=== PATIENT | female | born 1940 | race Caucasian/White ===

== ENCOUNTER 2017-09-08 14:56 | Inpatient (IN) ==
--- NOTE | 2017-09-08 14:58 | Emergency Department Report ---
Asthma HPI - General Stated Complaint: diff breathing Time Seen by Provider: 09/08/17 14:58 Source: patient, EMS Mode of arrival: EMS Limitations: no limitations - History of Present Illness HPI Narrative: Patient is a 77-year-old female presents humor department for evaluation of increasing shortness of air. Patient has a family member became ill approximately 5 days ago approximately 3 days ago patient started having a cough congestion body aches, which are somewhat chronic to her fibromyalgia. Patient now has increasing shortness of air, difficulty catching her breath. Patient denies any chest pain, nausea, vomiting no known fevers. EMS was called on arrival patient satting 84% on room air was placed on 2 L by nasal cannula. Patient has no history of hypoxia requiring oxygen in the past. No history of CHF or COPD to her knowledge MD complaint: shortness of breath Onset (ago): day(s) (3 days) - Related Data Home Medications Medication Instructions Recorded Confirmed Atorvastatin Calcium [Lipitor] 20 mg PO HS #0 04/03/10 09/08/17 Multivitamin,Therapeutic [Oncovite] 1 tab PO DAILY #0 10/24/10 09/08/17 Duloxetine [Cymbalta] 60 mg PO HS #0 cap 03/11/14 09/08/17 Aspirin [Aspir-Low] 1 tab PO DAILY #0 12/15/15 09/08/17 Nitrostat (nitroglycerin) 0.4 mg 0.4 mg SL PRN PRN 10 Days #25 03/22/17 09/08/17 sublingual tablet Cetirizine HCl 10 mg PO DAILY PRN 04/02/17 09/08/17 Cholecalciferol (Vitamin D3) 5,000 cap PO WEEKLY 04/02/17 09/08/17 [Vitamin D3] Isosorbide Mononitrate ER [Imdur] 30 mg PO QAM 04/02/17 09/08/17 Quetiapine [SEROquel] 200 mg PO HS 04/02/17 09/08/17 Lasix (Furosemide) 40 mg tablet 40 mg PO . tab 06/04/17 09/08/17 Namzaric (memantine ER) 7 1 cap PO Q24H 06/04/17 09/08/17 mg-donepezil 10 mg capsule sprinkle, 24 hour Acetaminophen [Acetaminophen Extra 1,000 mg PO Q6HR PRN 11/25/17 11/25/17 Strength] LORazepam [Lorazepam] 1 mg PO HS PRN 09/08/17 09/08/17 Pantoprazole Sodium [Protonix] 40 mg PO ACB 09/08/17 09/08/17 Potassium Chloride [Klor-Con 10] 10 meq PO . 09/08/17 09/08/17 Previous Rx's Medication Instructions Recorded Clopidogrel [Plavix] 75 mg PO DAILY #30 tab 04/03/17 levothyroxine 200 mcg tablet 200 mcg PO DAILY #90 tab 04/10/17 Zyloprim (Allopurinol) 300 mg 300 mg PO DAILY #90 tab 04/24/17 tablet Lyrica (pregabalin) 75 mg capsule 75 mg PO TID #90 cap 07/20/17 Norvasc (amlodipine) 5 mg tablet 5 mg PO BID #180 tab 08/13/17 Toprol XL (metoprolol succinate 50 mg PO DAILY #30 tab 08/15/17 ER) 50 mg tablet, 24 hr Ultram (Tramadol) 50 mg tablet 50 mg PO BID #30 tab 08/15/17 Allergies Allergy/AdvReac Type Severity Reaction Status Date / Time Iodine and Iodide Containing Allergy Unknown ITCHING Verified 06/04/17 13:37 Produc Review of Systems Constitutional: Denies: fever, chills, weakness ENT: Denies: throat pain, dental pain Cardiovascular: Reports: dyspnea on exertion. Denies: chest pain Respiratory: Reports: cough, dyspnea, wheezes Gastrointestinal: Denies: abdominal pain, nausea, vomiting Genitourinary: Denies: urgency, dysuria, frequency Musculoskeletal: Reports: back pain (chronic due to fibromyalgia) Neurological: Denies: headache, weakness, numbness Psychiatric: Denies: anxiety, depression Endocrine: Denies: fatigue, heat or cold intolerance PFSH Patient Stated Medical History Dementia Yes Migraine Yes Cataracts Yes Dental Problems Yes: TEETH REMOVED Dysphagia Yes Glaucoma Yes Macular Degeneration Yes Other HEENT Yes: wears glasses Angina Yes Hypertension Yes Pneumonia Yes Sleep Apnea Yes: INCONCLUSIVE Gastroesophageal Reflux Yes Disease Other GI Yes: HEMRRHOIDS. Hx Incontinence Yes: previous Anemia Yes Osteoarthritis Yes Other Musculoskeletal Yes: FIBROMYALGIA Shingles Yes Depression Yes Clinic Medical History Precordial pain (Acute Medical) Shortness of breath (Acute Medical) Essential (primary) hypertension (Acute Medical) Mixed hyperlipidemia (Acute Medical) Chronic kidney disease (Acute Medical) Community acquired pneumonia (Acute Medical) Hypoxemia requiring supplemental oxygen (Acute Medical) Pulmonary edema (Acute Medical) CKD (chronic kidney disease) (Acute Medical) Dementia (Acute Medical) Depression (Acute Medical) Dyslipidemia (Acute Medical) Family history of CVA (Acute Medical) Fibromyalgia (Acute Medical) HTN (hypertension) (Acute Medical) Hypothyroid (Acute Medical) Lumbar spinal stenosis (Acute Medical) Osteoarthritis (Acute Medical) Osteoporosis (Acute Medical) Restless leg syndrome (Acute Medical) Urinary incontinence (Acute Medical) Surgical History: cholecystectomy - Social History Smoking status: Never smoker Substance use type: does not use Alcohol intake frequency: does not drink Physical Exam - Limitations Limitations: no limitations - General General appearance: alert, obese - Eye Eye exam: Present: PERRL - ENT ENT exam: Present: normal oropharynx, mucous membranes moist, TM's normal bilaterally - Neck Neck exam: Present: full ROM, trachea midline - Chest Chest inspection: Present: symmetric chest wall rise. Absent: tenderness - Respiratory Respiratory exam: Present: normal lung sounds bilaterally (diminished with crackles left lower lobe mild bibasilar expiratory wheezes), wheezes, crackles. Absent: respiratory distress, prolonged expiratory phase - Cardiovascular Cardiovascular exam: Present: regular rate, normal rhythm, normal heart sounds - Abdominal Exam Abdominal exam: Present: soft, normal bowel sounds. Absent: distention, tenderness - Skin Skin exam: Present: warm, dry - Neurological Exam Neurological exam: Present: alert, oriented X3 - Psychiatric Psychiatric exam: Present: normal affect, normal mood Course Vital Signs Temperature 97.7 F 09/08/17 14:56 Pulse Rate 68 09/08/17 14:56 Respiratory Rate 28 H 09/08/17 14:56 Blood Pressure 170/83 H 09/08/17 14:56 Pulse Oximetry 93 09/08/17 14:56 Temperature 97.7 F 09/08/17 14:56 Pulse Rate 64 09/08/17 17:15 Respiratory Rate 31 H 09/08/17 17:15 Blood Pressure 163/75 H 09/08/17 17:15 Pulse Oximetry 95 09/08/17 17:15 Dyspnea - MDM Narrative Medical decision making narrative: Discuss case with Dr. Vincent, patient still hypoxic requiring oxygen with edema and questionable left lower lobe infiltrate, he will admit follow-up - Differential Diagnosis Differential diagnosis: Likely: Acute exacerbation, Status asthmaticus, Acute asthmatic bronchitis, PE, Pneumonia, COPD exacerbation, Pulmonary edema systolic , Pulmonary edema dystolic, Pneumothorax - Medical Records Attestation: I reviewed the patient's medical records. - Lab Data Attestation: I reviewed the patient's lab results. Result diagrams: 09/08/17 15:21 09/08/17 15:21 Lab Results 09/08/17 09/08/17 09/08/17 Range/Units 15:21 15:21 15:21 WBC 7.6 (4.5-11.0) T/MM3 RBC 5.23 H (4.00-5.20) M/MM3 Hgb 15.2 (12-16) GM/DL Hct 48.1 H (36-46) % MCV 92.0 (80-100) UM3 MCH 29.1 (26-34) UUG MCHC 31.6 (31-37) GM/DL RDW Std Deviation 49.5 (36.9-50.2) FL Plt Count 143 (130-400) T/MM3 MPV 10.2 (9.4-12.4) UM3 Immature Gran % (Auto) 1.2 H (0.0-0.5) % Neut % (Auto) 66.9 H (33-66) % Lymph % (Auto) 17.7 L (23-45) % Wise % (Auto) 8.7 (0-9.0) % Eos % (Auto) 5.1 H (0-4) % Baso % (Auto) 0.4 (0-2) % Neut # (Auto) 5.1 (1.8-7.7) T/MM3 Lymph # (Auto) 1.4 (1-4.8) T/MM3 Wise # (Auto) 0.7 (0-0.8) T/MM3 Eos # (Auto) 0.4 (0-0.5) T/MM3 Baso # (Auto) 0.0 (0-0.2) T/MM3 Abs Immat Gran (auto) 0.09 H (0.00-0.03) T/MM3 D-Dimer (0-230) NG/ML Turbidity < 20 (0-20) Sodium 143 (134-144) MEQ/L Potassium 4.8 (3.6-5) MEQ/L Chloride 99 (98-107) MEQ/L Carbon Dioxide 31 H (22-30) MEQ/L Anion Gap 13 (5-15) MEQ/L BUN 28.0 H (7-17) MG/DL Creatinine 1.6 H (0.7-1.2) MG/DL GFR Calculation 31 BUN/Creatinine Ratio 18 (6-26) RATIO Glucose 90 (65-110) MG/DL Calculated Osmolality 281 H (261-280) MOSM/KG Calcium 11.4 H (8.4-10.2) MG/DL Total Bilirubin 0.90 (0.20-1.30) MG/DL Icterus Index < 2 (0-7) AST 29 (14-36) U/L ALT 32 (9-52) U/L Alkaline Phosphatase 108 (38-126) U/L Troponin I < 0.012 (0-0.12) ng/ml B-Natriuretic Peptide 1720 H (0-175) pg/mL Total Protein 7.1 (6.3-8.2) G/DL Albumin 4.3 (3.5-5.0) G/DL Globulin 2.8 (2.4-3.6) G/DL Albumin/Globulin Ratio 1.5 (1.1-2.2) RATIO Plasma Lactate 1.0 (0.6-2.2) MMOL/L Procalcitonin 0.16 NG/ML Specimen Hemolysis 39 H (0-25) 09/08/17 Range/Units 15:23 WBC (4.5-11.0) T/MM3 RBC (4.00-5.20) M/MM3 Hgb (12-16) GM/DL Hct (36-46) % MCV (80-100) UM3 MCH (26-34) UUG MCHC (31-37) GM/DL RDW Std Deviation (36.9-50.2) FL Plt Count (130-400) T/MM3 MPV (9.4-12.4) UM3 Immature Gran % (Auto) (0.0-0.5) % Neut % (Auto) (33-66) % Lymph % (Auto) (23-45) % Wise % (Auto) (0-9.0) % Eos % (Auto) (0-4) % Baso % (Auto) (0-2) % Neut # (Auto) (1.8-7.7) T/MM3 Lymph # (Auto) (1-4.8) T/MM3 Wise # (Auto) (0-0.8) T/MM3 Eos # (Auto) (0-0.5) T/MM3 Baso # (Auto) (0-0.2) T/MM3 Abs Immat Gran (auto) (0.00-0.03) T/MM3 D-Dimer 329 H (0-230) NG/ML Turbidity (0-20) Sodium (134-144) MEQ/L Potassium (3.6-5) MEQ/L Chloride (98-107) MEQ/L Carbon Dioxide (22-30) MEQ/L Anion Gap (5-15) MEQ/L BUN (7-17) MG/DL Creatinine (0.7-1.2) MG/DL GFR Calculation BUN/Creatinine Ratio (6-26) RATIO Glucose (65-110) MG/DL Calculated Osmolality (261-280) MOSM/KG Calcium (8.4-10.2) MG/DL Total Bilirubin (0.20-1.30) MG/DL Icterus Index (0-7) AST (14-36) U/L ALT (9-52) U/L Alkaline Phosphatase (38-126) U/L Troponin I (0-0.12) ng/ml B-Natriuretic Peptide (0-175) pg/mL Total Protein (6.3-8.2) G/DL Albumin (3.5-5.0) G/DL Globulin (2.4-3.6) G/DL Albumin/Globulin Ratio (1.1-2.2) RATIO Plasma Lactate (0.6-2.2) MMOL/L Procalcitonin NG/ML Specimen Hemolysis (0-25) - Radiology Data Attestation: I reviewed the patient's radiology results. Chest x-ray shows edema versus left lower lobe infiltrate Disposition Prescriptions: No Action Multivitamin,Therapeutic [Oncovite] 1 tab PO DAILY #0 Duloxetine [Cymbalta] 60 mg PO HS #0 cap Isosorbide Mononitrate ER [Imdur] 30 mg PO QAM Cholecalciferol (Vitamin D3) [Vitamin D3] 5,000 cap PO WEEKLY LORazepam [Lorazepam] 1 mg PO HS PRN PRN Reason: anxiety Potassium Chloride [Klor-Con 10] 10 meq PO . Acetaminophen [Acetaminophen Extra Strength] 1,000 mg PO Q6HR PRN PRN Reason: Pain Atorvastatin Calcium [Lipitor] 20 mg PO HS #0 Aspirin [Aspir-Low] 1 tab PO DAILY #0 Cetirizine HCl 10 mg PO DAILY PRN PRN Reason: Allergy Symptoms Quetiapine [SEROquel] 200 mg PO HS Clopidogrel [Plavix] 75 mg PO DAILY #30 tab Pantoprazole Sodium [Protonix] 40 mg PO ACB Nitrostat (nitroglycerin) 0.4 mg sublingual tablet 0.4 mg SL PRN PRN 10 Days #25 PRN Reason: Chest Pain levothyroxine 200 mcg tablet 200 mcg PO DAILY #90 tab Zyloprim (Allopurinol) 300 mg tablet 300 mg PO DAILY #90 tab Namzaric (memantine ER) 7 mg-donepezil 10 mg capsule sprinkle, 24 hour 1 cap PO Q24H Lasix (Furosemide) 40 mg tablet 40 mg PO . tab Lyrica (pregabalin) 75 mg capsule 75 mg PO TID #90 cap Ultram (Tramadol) 50 mg tablet 50 mg PO BID #30 tab Toprol XL (metoprolol succinate ER) 50 mg tablet, 24 hr 50 mg PO DAILY #30 tab Norvasc (amlodipine) 5 mg tablet 5 mg PO BID #180 tab Referrals: Jd Mendoza DO [Family Provider] - Time of Disposition: 17:33 - Seen By: physician
--- OUTSIDE RECORDS SUMMARY | 2017-09-08 15:02 | External Medical Summary | Continuity of Care Document ---
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.2 Stricture and stenosis of cervix uteri 12/20/2015 [place] N95.0 Postmenopausal Bleeding 01/07/2016 Barry Keating E66.01 Morbid (severe) obesity due to excess calories 01/07/2016 Barry Keating M79.1 Myalgia 01/07/2016 Barry Keating N95.0 Postmenopausal Bleeding 01/07/2016 Barry Keating R93.5 Abn findings on dx imaging of abd regions, inc retroperiton 01/07/2016 Barry Keating Z68.43 Body mass index (BMI) 50-59.9 , adult 01/07/2016 Denise Hill N95.0 Postmenopausal J Bleeding 01/07/2016 Denise Hill R93.8 Abnormal findings on J diagnostic imaging of body structures 01/07/2016 [place] Novoa 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 01/07/2016 [place] Novoa 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.2 Stricture and stenosis of cervix uteri 01/07/2016 [place] Novoa N95.0 Postmenopausal Bleeding 12/07/2016 [place] Novoa 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 Type Provider Facility Loc./Unit Complaint No. Date/Time [id number] 12/20/2016 12/20/2016 CLS Outpatient [place], [place] 14:30:00 23:59:59 K [id number] 12/07/2016 12/07/2016 CLS Outpatient [place], [place] 11:27:00 23:59:59 K [id number] 01/03/2016 01/03/2016 CLS Outpatient Katie, 08:56:00 23:59:59 So Marquez [id number] 12/30/2015 12/30/2015 CLS Outpatient [place], [place] 09:31:00 23:59:59 K [id number] 12/15/2015 12/15/2015 CLS Outpatient [place], [place] 13:00:00 23:59:59 K [id number] 12/08/2015 12/08/2015 CLS Outpatient Sergio, 14:30:00 23:59:59 Denise Hoang [id number] 11/23/2015 11/23/2015 CLS Outpatient Rishabh, 09:29:00 23:59:59 Barry Hurtado [id number] 11/23/2015 11/23/2015 CLS Outpatient [place], [place] 08:00:00 23:59:59 Aurelia [id number] 11/22/2015 11/22/2015 CLS Outpatient Rishabh, 13:00:00 23:59:59 Barry Hurtado [id number] 11/11/2015 11/11/2015 CLS Outpatient Troy, 09:18:00 23:59:59 Zahraa Landry [id number] 03/02/2008 Document 15:11:00 Registratio n
--- OUTSIDE RECORDS SUMMARY | 2017-09-08 15:02 | External Medical Summary | Continuity of Care Document ---
:1940 Author Organization [facility] Address [address] [place], [place] [id number] Phone Care Team Providers Name Role Phone Dimitri Loo DO Unavailable Unavailable Allergies, Adverse Reactions, Alerts Substance Reaction Severity Status IODINE itching and burning Unknown Active Medications Medication Instructions Dosage Effective Dates Status Comments (start - stop) potassium chloride take 2 capsule by - Active ER 10 mEq oral route every capsule,extended day with food release donepezil 10 mg take 1 tablet by 10 MG - Active tablet oral route every day in the evening lorazepam 1 mg take 1 tablet by 1 MG - Active tablet oral route 3 times every day as needed furosemide 40 mg take 1 tablet by 40 MG - Active tablet oral route every day iron 325 mg (65 mg take 1 tablet by 325 MG - Active iron) tablet ORAL route every day quetiapine 100 mg take 1.5 tab at hs - Active tablet Vitamin D 50,000 take 1 capsule by Not Available - Active unit Cap ORAL route every day Lite Coat Aspirin - Active 325 mg Tab Lipitor 20 mg Tab Take 1 by mouth - Active daily Cymbalta 60 mg Cap Take 1 by mouth - Active daily amlodipine 5 mg take 1 tablet by 5 MG - Active tablet oral route 2 times every day levothyroxine 200 take 1 tablet by 200 MCG - Active mcg tablet oral route every day Lyrica 50 mg capsule take 1 capsule by 50 MG - Active oral route 2 times every day Tylenol Extra take 2 tablet by - Active Strength 500 mg oral route bid tablet omeprazole 20 mg take 1 capsule by - Active capsule,delayed oral route every release day before a meal multivitamin tablet take 1 tablet by Not Available - Active oral route every day with food tramadol 50 mg take 1 tablet by 50 MG - Active tablet oral route every 6 hours as needed Tylenol Extra take 2 tablet by 1000 MG - Active Strength 500 mg oral route every 6 tablet hours as needed Aleve 220 mg tablet take 1 tablet by 220 MG - Active oral route every 12 hours as needed METOPROLOL TARTRATE take 1 tablet by - Active (unknown strength) oral route 2 times every day Problems Condition Effective Dates (start - stop) Clinical Status Submucous leiomyoma of uterus Postmenopausal Bleeding Morbid (severe) obesity due to excess calories Myalgia Postmenopausal Bleeding Abn findings on dx imaging of abd regions, inc retroperiton Body mass index (BMI) 50-59.9 , adult Abnormal findings on diagnostic imaging of body structures Postmenopausal Bleeding Postmenopausal Bleeding Submucous leiomyoma of uterus Stricture and stenosis of cervix uteri Postmenopausal Bleeding Postmenopausal Bleeding Abn findings on dx imaging of abd regions, inc retroperiton Hypertension - Active Procedures Procedure Date Unknown Results Test Name Date and Time Measure Units Reference Range Abnormal Flag Comments Unknown Advance Directives Directive Yes / No Effective Date File Name Unknown Encounters Encounter Practice Location Reason(s) Diagnoses Date Provider Care Team Description For Visit Members April Krishnamurthy Postmenopausal Mar-0 [place] Referring In Womens Bleeding [place]. Provider: Tyrell KUMAR, [address]ri [facility] R, [address], Center [address], [place], [address], [address], , [facility], Center, tel:[phone] [place], [id number] [place] [address]. [id number]. tel: tel: [phone] April Krishnamurthy Submucous leiomyoma Feb-2 [place] In Womens of 3- [place]. Tyrell KUMAR, uterusPostmenopausa [address] [facility] [address], [facility], 120, [id number], [facility], tel: [phone] [place] [address]. tel: [phone] April Krishnamurthy Submucous leiomyoma Mar-0 [facility] Referring In Womens of uterusStricture 2-201 [place]. Provider: Health STACY, and stenosis of 6 700 [place] [address] cervix Medical K, [address], uteriPostmenopausal Center Medical [place], Jennifer Canales, [facility] [address] [place], [address], [address], , [facility] [place], [place], tel: [phone]. , [place]. tel: tel: [phone] April Krishnamurthy Abnormal findings Fe-2 [place] Referring In Womens on diagnostic 4-201 Denise. Provider: Health STACY, imaging of body [address]imitri [address] structuresPostmenop Medical [place]inda R, [address], [facility] [address], [facility] [place], [address], [address], , [facility], Center, tel: [phone] [place], , [place]. [id number]. tel: tel: [phone] April Krishnamurthy Postmenopausal Fe-0 [facility] In Womens BleedingAbn 9-201 [place]. Health [place], findings on dx 6 700 [address] imaging of abd Medical 1522, [facility], [facility] [address], [facility] [place], [address], [id number], [facility] [place], tel: [phone] , [place]. tel: [phone] [facility] ABHISHEK Remy Morbid (severe) Nov-0 [place] Referring In Womens obesity due to 8 Barry. Provider: Health STACY, excess [address] caloriesMyalgiaPost [place], [address], menopausal [place], [address] [place], [place], findings on dx [id number] [address], [id number], [facility] , [place]. [facility], inc tel: Center, tel: retroperitonBody [id number] [place], mass index (BMI) [id number]. 50-59.9 , adult tel:[phone] [facility] Nov-0 [place] Referring In Womens 1-201 [place]. Provider: Health [place], 0 [address] [place] Box Medical [place], [address], Center [address], [place], [address], [address], [id number], [facility], Center, tel:[phone] [place], , . [id number]. tel: [phone] [facility] [place] Referring In Womens 9-200 [place]. Provider: Health [place], 8 [address]imitri [address] Medical [place], [address], Center [address], [place], [address], [address], [id number], [facility], Center, tel:[phone] [place], , . [id number]. tel: tel:[phone] Family History Family Member Diagnosis Age At Onset Brother Stroke No family history of Epilepsy No family history of Cardiovascular Disease Daughter Cancer, breast 55 No family history of Hypertension Mother Cancer, breast 88 No family history of Lung Disease Maternal Grandmother Cancer, colon No family history of Thyroid Disorder No family history of Osteoporosis No family history of Diabetes No family history of Kidney Problems No family history of Ovarian Cancer Immunizations Vaccine Date Status Comments Unknown Payers Payer name Insurance type Covered republican ID Authorization(s) [facility] [id number] [employer] [place] [id number] Social History Type Description Quantity Date Captured Unknown Vital Signs Date / Height Weight BMI Pulse Blood Temperature Respiratory Body Head BMI Time: Rate Pressure Rate Surface Circumference percentile Area Unknown Chief Complaint And Reason For Visit Unknown Chief Complaint And Reason For Visit Reason For Referral Reason For Referral Unknown Plan Of Care Date Type Action Status Goal Lifestyle education regarding diet completed Date Type Problem Goal Intervention Status Start Date Unknown. History Of Present Illness Encounter Date Complaint History Of Present Illness This patient has no known history of present illness Functional Status Encounter Date Functional Assessment Cognitive Assessment Unknown Medications Administered Medication Instructions Dosage Effective Dates (start - stop) Status Comments Drug Treatment Unknown Instructions Date Instruction Additional Information Giving encouragement to exercise Related to Body mass index 50.0- 59.9 Feb-24-2016 Lifestyle education regarding diet Related to Body mass index 50.0-59.9
[2017-09-08] MEDS ORDERED: AZITHROMYCIN IV 500 MG in NS 250ml 250 ML IV ONE (15:23)
[2017-09-08] MEDS ORDERED: ALBUTEROL/IPRATROPIUM 2.5mg-0.5mg/3ml NEB AEROSOL ONE (15:24)
[2017-09-08] MEDS: SALINE FLUSH 10ml SYRINGE IVF PRN ×3 (16:13→17:17)
[2017-09-08] MEDS ORDERED: ONDANSETRON 4 MG/2 ML INJECTION IVP ONE (16:15)
[2017-09-08] MEDS ORDERED: DiphenhydrAMINE 50 MG/ML INJECTION IVP ONE (17:11)
--- NOTE | 2017-09-08 18:23 | History & Physical Report ---
History of Present Illness Date: 09/08/17 Chief complaint: weakness, cough, SOA HPI: Patient is a 77-year-old female who presents to the ER with increasing shortness of breath, cough for 3 days and progressive weakness. Her daughter has had cold symptoms for the last 5 days and patient has developed similar symptoms 3 days ago. She has not run fever. She has had hot and cold chills last night. States her cough is nonproductive. She is usually not on oxygen at home. Review of Systems All systems PM: 10-point ROS was reviewed, no additional remarkable complaints except - Constitutional Constitutional: Present: chills, headache(s) (chronic for patient), lethargy, weakness - Respiratory Respiratory: Present: cough, dyspnea - Integumentary/Breasts Integumentary: Present: rash (developed in ER after she was given Zithromax) - Neurological Neurological: Present: memory loss (dementia), vertigo (chronic), weakness - Psychiatric Psychiatric: Present: anxiety [facility] Medical History Essential (primary) hypertension (Acute Medical) Mixed hyperlipidemia (Acute Medical) Chronic kidney disease (Acute Medical) Pulmonary edema (Acute Medical) CKD (chronic kidney disease) (Acute Medical) Dementia (Acute Medical) Depression (Acute Medical) Dyslipidemia (Acute Medical) Fibromyalgia (Acute Medical) Hypothyroid (Acute Medical) Lumbar spinal stenosis (Acute Medical) Osteoarthritis (Acute Medical) Osteoporosis (Acute Medical) Restless leg syndrome (Acute Medical) Urinary incontinence (Acute Medical) Surgical History: cholecystectomy, thyroid surgery 2, cardiac stent 1 (April 2017-Dr. Botello) Family History: Father- from lymphoma Mother- at age 97 from "old age." Had breast cancer in her 80s Sister-lung cancer Brother-lung cancer with metastases Daughter- at age 56. Had heart valve replacement and implanted defibrillator Son - [place] - Social History Smoking status: Never smoker Substance use type: does not use Alcohol intake frequency: does not drink Housing: house Household members: children (daughter) Current occupational status: retired Current residence: Apartment/Private Home Social history: PCP-Dr. 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 Botello Medications Home Medications Medication Instructions Recorded Confirmed Type Atorvastatin Calcium [Lipitor] 20 mg PO HS #0 04/03/10 09/08/17 History Multivitamin,Therapeutic [Oncovite] 1 tab PO DAILY #0 10/24/10 09/08/17 History Duloxetine [Cymbalta] 60 mg PO HS #0 cap 03/11/14 09/08/17 History Aspirin [Aspir-Low] 1 tab PO DAILY #0 12/15/15 09/08/17 History Nitrostat (nitroglycerin) 0.4 mg 0.4 mg SL PRN PRN 10 Days #25 03/22/17 History sublingual tablet Cetirizine HCl 10 mg PO DAILY PRN 04/02/17 09/08/17 History Cholecalciferol (Vitamin D3) 5,000 cap PO WEEKLY 04/02/17 09/08/17 History [Vitamin D3] Isosorbide Mononitrate ER [Imdur] 30 mg PO QAM 04/02/17 09/08/17 History Quetiapine [SEROquel] 200 mg PO HS 04/02/17 09/08/17 History Lasix (Furosemide) 40 mg tablet 40 mg PO . tab 06/04/17 09/08/17 History Namzaric (memantine ER) 7 1 cap PO Q24H 06/04/17 09/08/17 History mg-donepezil 10 mg capsule sprinkle, 24 hour Acetaminophen [Acetaminophen Extra 1,000 mg PO Q6HR PRN 09/08/17 09/08/17 History Strength] LORazepam [Lorazepam] 1 mg PO HS PRN 09/08/17 09/08/17 History Naproxen [Aleve] 220 mg PO DAILY 09/08/17 09/08/17 History Pantoprazole Sodium [Protonix] 40 mg PO ACB 09/08/17 09/08/17 History Potassium Chloride [Klor-Con 10] 10 meq PO . 09/08/17 09/08/17 History Pregabalin Cap [Lyrica] 75 mg PO BID 09/08/17 09/08/17 History Allergies Allergy/AdvReac Type Severity Reaction Status Date / Time azithromycin Allergy Intermediate Rash Verified 09/08/17 18:15 Iodine and Iodide Containing Allergy Unknown ITCHING Verified 06/04/17 13:37 Produc Exam Vital Signs: Temperature 97.7 F 09/08/17 14:56 Pulse Rate 70 09/08/17 18:00 Respiratory Rate 27 H 09/08/17 18:00 Blood Pressure 146/64 H 09/08/17 18:00 Pulse Oximetry 93 09/08/17 18:00 - Constitutional Present: no acute distress, well nourished, well developed, obese - Routine HEENT Exam Head: Present: normocephalic, atraumatic Eye: Present: EOMI, PERRL ENT: Present: mucous membranes moist. Absent: dentition normal (edentulous) - Routine Neck Exam Present: supple, lymphadenopathy (supraclavicular on the left). Absent: thyromegaly - Routine Respiratory Exam Present: wheezes. Absent: CTA bilaterally Comments: coarse throughout - Routine Cardiovascular Exam Present: RRR, S1, S2. Absent: murmur - Routine Abdominal Exam Present: soft, normoactive bowel sounds, tenderness (diffuse - r/t fibromyalgia) , non distended - Routine Extremities Exam Present: edema (2+ pretibial - no pedal edema. R> L - chronic for pt), normal capillary refill - Routine Skin Exam Present: dry, warm, rash (mild erythema on breasts - no definitive or significant rash present otherwise) - Routine Neurological Exam Present: alert, oriented X3, normal speech. Absent: pronator drift - Routine Psychiatric Exam Present: normal affect, cooperative Results - Labs CBC & Chem 7: 09/08/17 15:21 09/08/17 15:21 Labs: Laboratory Tests 09/08/17 09/08/17 09/08/17 15:21 15:21 15:23 D-Dimer 329 H Troponin I < 0.012 B-Natriuretic Peptide 1720 H Plasma Lactate 1.0 Procalcitonin 0.16 - Imaging and Cardiology Chest x-ray Additional comments: pulmonary edema and questionable LLL infiltrate Assessment and Plan Assessment and Plan: Assessment Acute hypoxic respiratory failure Pulmonary edema Essential (primary) hypertension Mixed hyperlipidemia Chronic kidney disease Pulmonary edema CKD (chronic kidney disease) Dementia Depression Dyslipidemia Fibromyalgia Hypothyroid Lumbar spinal stenosis Osteoarthritis Osteoporosis Restless leg syndrome Urinary incontinence Plan Admit to inpatient status under the hospitalist service. Length of stay is expected to exceed 2 overnights given her hypoxic state and comorbidities. Lovenox and SCDs for VTE prophylaxis Continue all home meds with the exception of Lasix as this will be given IV. Telemetry and oximetry. O2 to keep sats greater than 90%. Rocephin for pulmonary coverage. Respiratory panel ordered. [place] catheter placement with urinalysis on admission. TSH, magnesium, troponin, repeat BMP and CBC in the a.m. Monitor I and O's and check daily weights. Patient requests DO NOT RESUSCITATE CODE STATUS. Care to be returned to Dr. Loo on dismissal Case discussed with Dr. Lechuga. Further orders per Dr. Ankush Lechuga 09/08/17 1900 Have independently interviewed and examined pt. Chart reviewed. Case discussed with ED physician and my PA. Care plan developed with my supervision; agree with above. Increasing cough, congestion, and SOA worsening over the past 3 days. Not able to mobilize sputum. Upper ab wall pain from cough. Nasal congestion. Appetite with significant decline since she has been feeling sick. More tired and weak. No palpitations. Some heaviness to chest. Bowel slightly loose. Making normal amount of urine. Some increase edema. More diffusely achy in joints and bones. Lungs: decreased, congested. Frequent cough. CV: regular Ab: soft obese nd BS decreased MSE: awake alert appropriate CXR: pulmonary edema, possible infiltrate (my interpretation) Plan: Inpatient admission secondary to acute respiratory failure with hypoxia- anticipate greater than 2 midnights of care needed. Start Lasix 40mg IV q 8 hours to motivate fluid - will place [place] cath secondary to need for frequent use of IV diuretics. Serial enzymes to exclude AMI. Check ECHO to assess EF ( normal on cath this summer). Rocephin for pulmonary coverage - was given IV azithromycin in ED, but started itching (hold on azithromycin for now). Check respiratory panel for viruses that could contribute to her acute symptoms. Hold on IVF as concern for pulm edema-plus BP and HR maintained. Acapella to help loosen secretions. Will initial neb treatments of DuoNeb and budesonide. Supplemental O2, weaning as able. Acapella to decrease secretions. Low dose Phenergan and Codeine as needed for severe cough. Nasal saline due to nasal congestion. Continue home meds. SCD and Lovenox for DVT prevention. Monitor lab. Will check Vit B12 secondary to dementia (and when checked previously, while normal, Vit B12 level was trending down). Discussed code status with patient - feels she would not want resuscitation. Care to return to Dr Loo at time of discharge from [facility]. DVT Prophylaxis: SCD's, Lovenox Resuscitation Status: Do Not Resuscitate Hospital Course Summary Disclaimer: The visit summary below is not to be considered part of the above Progress Note. Hospital Course: Assessment Acute hypoxic respiratory failure Pulmonary edema Essential (primary) hypertension Mixed hyperlipidemia Chronic kidney disease Pulmonary edema CKD (chronic kidney disease) Dementia Depression Dyslipidemia Fibromyalgia Hypothyroid Lumbar spinal stenosis Osteoarthritis Osteoporosis Restless leg syndrome Urinary incontinence 09/08/17 hospital admission Admit to inpatient status under the hospitalist service. Length of stay is expected to exceed 2 overnights given her hypoxic state and comorbidities. Lovenox and SCDs for VTE prophylaxis Continue all home meds with the exception of Lasix as this will be given IV. Telemetry and oximetry. O2 to keep sats greater than 90%. Rocephin for pulmonary coverage. Respiratory panel ordered. [place] catheter placement with urinalysis on admission. TSH, magnesium, troponin, repeat BMP and CBC in the a.m. Monitor I and O's and check daily weights. Patient requests DO NOT RESUSCITATE CODE STATUS. Care to be returned to Dr. Loo on dismissal Case discussed with Dr. Lechuga. Further orders per Dr. Lechuga
[2017-09-08 18:32] VITALS: BMI 45.8
[2017-09-08] MEDS ORDERED: LORazepam 1 MG TABLET PO PRN (19:25)
[2017-09-08] MEDS ORDERED: NITROGLYCERIN 0.4 MG SUBLINGUAL TABLET SL PRN (19:25)
[2017-09-08] MEDS ORDERED: ACETAMINOPHEN 500 MG TABLET PO PRN (19:25)
[2017-09-08] MEDS ORDERED: [UNRECOGNIZED DRUG - OTHER] PO SCH (19:25)
[2017-09-08] MEDS ORDERED: CETIRIZINE 10 MG TABLET PO PRN (19:25)
[2017-09-08] MEDS ORDERED: MEMANTINE HCL PO SCH (19:25)
[2017-09-08] MEDS ORDERED: DONEPEZIL HCL PO SCH (19:25)
[2017-09-08] MEDS ORDERED: PROMETHAZINE/CODEINE ORAL LIQUID 5ml PO PRN (19:25)
[2017-09-08] MEDS: CEFTRIAXONE 1 G in NS 100 ML IV SCH (20:01)
[2017-09-08] MEDS: ENOXAPARIN 40 MG/0.4 ML INJECTION SQ SCH (20:43)
[2017-09-08] MEDS: ATORVASTATIN 20 MG TABLET PO SCH (20:43)
[2017-09-08] MEDS: AMLODIPINE 5 MG TABLET PO SCH (20:43)
[2017-09-08] MEDS: DULOXETINE 30 MG CAPSULE PO SCH (20:43)
[2017-09-08] MEDS: PREGABALIN 75 MG CAPSULE PO SCH (20:43)
[2017-09-08] MEDS: SALINE 0.65% NASAL SPRAY 44 ML BOTTLE EA NOSTRIL SCH (20:43)
[2017-09-08] MEDS: QUETIAPINE 200 MG TABLET PO SCH (20:44)
[2017-09-08] MEDS: TRAMADOL 50 MG TABLET PO SCH (20:44)
[2017-09-08] MEDS: FUROSEMIDE 40 MG/4 ML INJECTION IVP SCH (20:44)
[2017-09-09] MEDS: FUROSEMIDE 40 MG/4 ML INJECTION IVP SCH ×3 (04:43→20:30)
[2017-09-09] MEDS: PANTOPRAZOLE 40 MG TABLET PO SCH (06:55)
[2017-09-09] MEDS: LEVOTHYROXINE 200 MCG TABLET PO SCH (08:20)
[2017-09-09] MEDS: BUDESONIDE INH.SOLN 0.5mg/2ml NEB AEROSOL SCH ×2 (08:44→19:00)
[2017-09-09] MEDS: ALBUTEROL/IPRATROPIUM 2.5mg-0.5mg/3ml NEB AEROSOL SCH ×4 (08:44→19:00)
--- NOTE | 2017-09-09 08:49 | XRay Report ---
INDICATION: cough, shortness of air, wheezing PROCEDURE: CHEST 2-VIEWS UPRIGHT (PA & LAT) Encounter: Initial COMPARISON: March 22, 2017 FINDINGS: Hazy airspace disease in the left lower lobe with a small left effusion. Right lung is grossly clear. No pneumothorax. Heart size and mediastinal contours are grossly stable allowing for differences in rotation. Pulmonary vascularity is minimally prominent. Impression: Left lower lobe pneumonia or aspiration. .
[2017-09-09] MEDS: ENOXAPARIN 40 MG/0.4 ML INJECTION SQ SCH (09:38)
[2017-09-09] MEDS: MULTI-VITAMIN + MINERAL TABLET PO SCH (09:39)
[2017-09-09] MEDS: TRAMADOL 50 MG TABLET PO SCH ×2 (09:39→20:30)
[2017-09-09] MEDS: AMLODIPINE 5 MG TABLET PO SCH ×2 (09:39→20:31)
[2017-09-09] MEDS: CLOPIDOGREL 75 MG TABLET PO SCH (09:39)
[2017-09-09] MEDS: ISOSORBIDE MONONITRATE ER 30 MG TABLET PO SCH (09:39)
[2017-09-09] MEDS: PREGABALIN 75 MG CAPSULE PO SCH ×2 (09:39→20:31)
[2017-09-09] MEDS: SALINE 0.65% NASAL SPRAY 44 ML BOTTLE EA NOSTRIL SCH ×4 (09:39→20:32)
[2017-09-09] MEDS: ALLOPURINOL 300 MG TABLET PO SCH (09:39)
[2017-09-09] MEDS: ASPIRIN *EC* 81 MG TABLET PO SCH (09:39)
[2017-09-09] MEDS: CEFTRIAXONE 1 G in NS 100 ML IV SCH (09:40)
[2017-09-09] MEDS ORDERED: BISACODYL 10 MG SUPPOSITORY RECTALLY PRN (11:44)
[2017-09-09] MEDS ORDERED: ONDANSETRON 4 MG/2 ML INJECTION IVP PRN (11:45)
--- NOTE | 2017-09-09 13:22 | Progress Note ---
- Date 09/09/17 Subjective: F/U: Acute hypoxic respiratory failure, pneumonia Breathing with some improvement this afternoon (very short and congested this am ). Notes cough, but not able to mobilize sputum. Breathing treatments are helpful. Not having pain with breathing. No chest pressure or fullness. Appetite decreased, but able to eat without nausea or ab pain. Not reporting flatus. Tolerating Chino cath and SCD. Strength still very decreased. No f/c. Objective Vital signs: Temperature 97.3 F 09/09/17 08:00 Pulse Rate 68 09/09/17 08:00 Respiratory Rate 20 09/09/17 11:44 Blood Pressure 170/86 H 09/09/17 08:00 Pulse Oximetry 93 09/09/17 08:44 Height/Weight/BMI: Height 1.63 m Weight 122 kg Body Mass Index 45.8 - Constitutional Present: well nourished, well developed, morbidly obese, cooperative. Absent: combative, agitated - Routine HEENT Exam Head: Present: normocephalic, atraumatic Eye: Present: EOMI, PERRL ENT: Present: mucous membranes moist - Routine Respiratory Exam Present: decreased breath sounds, distant breath sounds, diminished air movement. Absent: rales, rhonchi, wheezes, crackles - Routine Cardiovascular Exam Present: RRR, no murmur - Routine Abdominal Exam Present: soft, normoactive bowel sounds, non tender, distended. Absent: guarding - Routine Exam Comments: [place] present - Routine Extremities Exam Present: no edema, pulses intact. Absent: cyanosis, clubbing Comments: SCD in place - Routine Musculoskeletal Exam Musculoskeletal: Present: no clubbing or cyanosis - Routine Skin Exam Present: dry, warm - Routine Neurological Exam Present: alert, oriented X3, CN II-XII intact, moving all extremities, vision grossly intact, hearing grossly intact, normal speech. Absent: motor deficit, altered mental status - Routine Psychiatric Exam Present: normal affect, normal thought process, cooperative. Absent: anxious, agitated Results - Labs CBC & Chem 7: 09/09/17 04:22 09/09/17 04:22 Assessment and Plan Assessment and Plan: Assessment Acute hypoxic respiratory failure Pneumonia Pulmonary edema Essential (primary) hypertension Mixed hyperlipidemia CKD (chronic kidney disease) Stage III Dementia Depression Fibromyalgia Hypothyroid Lumbar spinal stenosis Osteoarthritis Osteoporosis Restless leg syndrome Urinary incontinence Morbid Obesity with BMI 46.2 Plan Continue with Rocephin for pulmonary coverage of infiltrate - azithromycin given in ED, but patient developed rash. DuoNeb QID, budesonide BID, and Acapella QID to help loosen secretions. Continue with supplemental O2. Viral respiratory panel negative. Decrease Lasix to 40mg IV BID to help decrease pulm edema. Potassium with decrease to 3.8 - will give 20mEq KCl. Check ECHO in am. 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 Serial troponin negative. Start Miralax daily to help with bowel motivation. TSH with slight increase - likely euthyroid sick - continue with home dose. Could repeat in outpatient setting in 3 months. Vitamin B12 pending - normal when checked last, but trending down. Consult PT/OT in am to help increase strength and functional status. Recheck CBC in am due to pneumonia. Recheck BMP/Mg in am due to diuretic use and CKD. Time spent with patient care 25 minutes. DVT Prophylaxis: SCD's, Lovenox Resuscitation Status: Do Not Resuscitate - Time spent with patient Time with patient PN: 25 minutes Hospital Course Summary Disclaimer: The visit summary below is not to be considered part of the above Progress Note. Hospital Course: Assessment Acute hypoxic respiratory failure Pneumonia Pulmonary edema Essential (primary) hypertension Mixed hyperlipidemia CKD (chronic kidney disease) Stage III Dementia Depression Fibromyalgia Hypothyroid Lumbar spinal stenosis Osteoarthritis Osteoporosis Restless leg syndrome Urinary incontinence Morbid Obesity with BMI 46.2 09/08/17 Hospital Admission Admit to inpatient status under the hospitalist service. Length of stay is expected to exceed 2 overnights given her hypoxic state and comorbidities. Lovenox and SCDs for VTE prophylaxis. Continue all home meds with the exception of Lasix as this will be given IV at 40mg q 8 hours. Telemetry and oximetry. O2 to keep sats greater than 90%. Rocephin for pulmonary coverage. Respiratory panel ordered. Ch[place] catheter placement with urinalysis on admission. TSH, magnesium, troponin, repeat BMP and CBC in the a.m. Monitor I and O's and check daily weights. Patient requests DO NOT RESUSCITATE CODE STATUS. Care to be returned to Dr. Loo on dismissal. 09/09/17 Continue with Rocephin for pulmonary coverage of infiltrate - azithromycin given in ED, but patient developed rash. DuoNeb QID, budesonide BID, and Acapella QID to help loosen secretions. Continue with supplemental O2. Viral respiratory panel negative. Decrease Lasix to 40mg IV BID to help decrease pulm edema. Potassium with decrease to 3.8 - will give 20mEq KCl. Check ECHO in am. 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 Serial troponin negative. Start Miralax daily to help with bowel motivation. TSH with slight increase - likely euthyroid sick - continue with home dose. Could repeat in outpatient setting in 3 months. Vitamin B12 pending - normal when checked last, but trending down. Consult PT/OT in am to help increase strength and functional status. Recheck CBC in am due to pneumonia. Recheck BMP/Mg in am due to diuretic use and CKD.
[2017-09-09] MEDS: POLYETHYL GLYCOL 3350 17gm PACKET PO SCH (15:59)
[2017-09-09] MEDS: TRAMADOL 50 MG TABLET PO PRN (18:09)
[2017-09-09] MEDS ORDERED: ALBUTEROL/IPRATROPIUM 2.5mg-0.5mg/3ml NEB AEROSOL SCH (19:22)
[2017-09-09] MEDS ORDERED: BUDESONIDE INH.SOLN 0.5mg/2ml NEB AEROSOL SCH (19:22)
[2017-09-09] MEDS: DONEPEZIL 10 MG TABLET PO SCH (20:31)
[2017-09-09] MEDS: ATORVASTATIN 20 MG TABLET PO SCH (20:31)
[2017-09-09] MEDS: DULOXETINE 30 MG CAPSULE PO SCH (20:31)
[2017-09-09] MEDS: MEMANTINE 5 MG TABLET PO SCH (20:31)
[2017-09-09] MEDS: QUETIAPINE 200 MG TABLET PO SCH (20:32)
[2017-09-10] MEDS: TRAMADOL 50 MG TABLET PO PRN (05:17)
[2017-09-10] MEDS: PANTOPRAZOLE 40 MG TABLET PO SCH (06:01)
[2017-09-10] MEDS: LEVOTHYROXINE 200 MCG TABLET PO SCH (06:01)
[2017-09-10] MEDS: BUDESONIDE INH.SOLN 0.5mg/2ml NEB AEROSOL SCH ×2 (07:07→19:21)
[2017-09-10] MEDS: ALBUTEROL/IPRATROPIUM 2.5mg-0.5mg/3ml NEB AEROSOL SCH ×4 (07:07→19:21)
[2017-09-10] MEDS: ASPIRIN *EC* 81 MG TABLET PO SCH (10:39)
[2017-09-10] MEDS: MEMANTINE 5 MG TABLET PO SCH ×2 (10:39→21:07)
[2017-09-10] MEDS: ISOSORBIDE MONONITRATE ER 30 MG TABLET PO SCH (10:40)
[2017-09-10] MEDS: ALLOPURINOL 300 MG TABLET PO SCH (10:40)
[2017-09-10] MEDS: CLOPIDOGREL 75 MG TABLET PO SCH (10:40)
[2017-09-10] MEDS: PREGABALIN 75 MG CAPSULE PO SCH ×2 (10:41→21:06)
[2017-09-10] MEDS: FUROSEMIDE 40 MG/4 ML INJECTION IVP SCH (10:41)
[2017-09-10] MEDS: POLYETHYL GLYCOL 3350 17gm PACKET PO SCH (10:41)
[2017-09-10] MEDS: AMLODIPINE 5 MG TABLET PO SCH ×2 (10:41→21:07)
[2017-09-10] MEDS: ENOXAPARIN 40 MG/0.4 ML INJECTION SQ SCH (10:41)
[2017-09-10] MEDS: MULTI-VITAMIN + MINERAL TABLET PO SCH (10:41)
[2017-09-10] MEDS: TRAMADOL 50 MG TABLET PO SCH ×2 (10:42→21:06)
[2017-09-10] MEDS: SALINE 0.65% NASAL SPRAY 44 ML BOTTLE EA NOSTRIL SCH ×4 (10:42→21:07)
[2017-09-10] MEDS: CEFTRIAXONE 1 G in NS 100 ML IV SCH (10:43)
--- NOTE | 2017-09-10 11:14 | Progress Note ---
<Anabell Muñoz L - Last Filed: 09/10/17 11:11> - Date 09/10/17 Subjective: F/U: Acute hypoxic respiratory failure, pneumonia Patient is seen in her room sitting in her chair. She feels like she has less shortness of breath. She was able to cough up some mucus today. She has been using her Acapella. She is sleeping well. States she has not had bowel movement since prior to admission 2 days ago. No nausea or vomiting. Hasn't had much of an appetite. Objective Vital signs: Temperature 97.0 F 09/10/17 07:45 Pulse Rate 66 09/10/17 07:45 Respiratory Rate 16 09/10/17 07:45 Blood Pressure 156/71 H 09/10/17 07:45 Pulse Oximetry 91 09/10/17 08:00 Height/Weight/BMI: Height 1.63 m Weight 121 kg Body Mass Index 45.8 - Constitutional Present: well nourished, well developed, obese - Routine Respiratory Exam Present: decreased breath sounds (sounds are decreased to the lower half of the left lung field. Right lung is clear.). Absent: wheezes - Routine Cardiovascular Exam Present: RRR, S1, S2. Absent: murmur - Routine Abdominal Exam Present: soft, normoactive bowel sounds, tenderness (diffuse-secondary to fibromyalgia), non distended - Routine Extremities Exam Present: no edema (currently has SCDs on.), normal capillary refill - Routine Skin Exam Present: dry, warm - Routine Neurological Exam Present: alert, oriented X3. Absent: altered mental status - Routine Lymphatic Exam Lymphatic: Absent: adenopathy - Routine Psychiatric Exam Present: normal affect, normal thought process, cooperative Results - Labs CBC & Chem 7: 09/10/17 05:00 09/10/17 05:00 Assessment and Plan Assessment and Plan: Assessment Acute hypoxic respiratory failure Pneumonia Pulmonary edema Essential (primary) hypertension Mixed hyperlipidemia CKD (chronic kidney disease) Stage III Dementia Depression Fibromyalgia Hypothyroid Lumbar spinal stenosis Osteoarthritis Osteoporosis Restless leg syndrome Urinary incontinence Morbid Obesity with BMI 46.2 Plan Continue with Rocephin for pulmonary coverage of infiltrate - azithromycin given in ED, but patient developed rash. Repeat CXR today. Significantly decreased BS's to lower half of L lung. DuoNeb QID, budesonide BID, and Acapella QID to help loosen secretions. Continue with supplemental O2. Viral respiratory panel negative. Decrease Lasix to 40mg IV qd from BID (home dose is 40mg qd p.o.) given increasing creatinine. Resume home potassium of 10mEq qd. ECHO pending. 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 Continue Miralax daily to help with bowel motivation. Can give MOM and prune juice if needed. TSH with slight increase - likely euthyroid sick - continue with home dose. Vitamin B12 resulted- normal. PT/OT to eval pt today to help increase strength and functional status. Hospital Course Summary Disclaimer: The visit summary below is not to be considered part of the above Progress Note. Hospital Course: Assessment Acute hypoxic respiratory failure Pneumonia Pulmonary edema Essential (primary) hypertension Mixed hyperlipidemia CKD (chronic kidney disease) Stage III Dementia Depression Fibromyalgia Hypothyroid Lumbar spinal stenosis Osteoarthritis Osteoporosis Restless leg syndrome Urinary incontinence Morbid Obesity with BMI 46.2 09/08/17 Hospital Admission Admit to inpatient status under the hospitalist service. Length of stay is expected to exceed 2 overnights given her hypoxic state and comorbidities. Lovenox and SCDs for VTE prophylaxis. Continue all home meds with the exception of Lasix as this will be given IV at 40mg q 8 hours. Telemetry and oximetry. O2 to keep sats greater than 90%. Rocephin for pulmonary coverage. Respiratory panel ordered. Bal[place] catheter placement with urinalysis on admission. TSH, magnesium, troponin, repeat BMP and CBC in the a.m. Monitor I and O's and check daily weights. Patient requests DO NOT RESUSCITATE CODE STATUS. Care to be returned to Dr. Loo on dismissal. 09/09/17 Continue with Rocephin for pulmonary coverage of infiltrate - azithromycin given in ED, but patient developed rash. DuoNeb QID, budesonide BID, and Acapella QID to help loosen secretions. Continue with supplemental O2. Viral respiratory panel negative. Decrease Lasix to 40mg IV BID to help decrease pulm edema. Potassium with decrease to 3.8 - will give 20mEq KCl. Check ECHO in am. 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 Serial troponin negative. Start Miralax daily to help with bowel motivation. TSH with slight increase - likely euthyroid sick - continue with home dose. Could repeat in outpatient setting in 3 months. Vitamin B12 pending - normal when checked last, but trending down. Consult PT/OT in am to help increase strength and functional status. Recheck CBC in am due to pneumonia. Recheck BMP/Mg in am due to diuretic use and CKD. 09/10/17 Continue with Rocephin for pulmonary coverage of infiltrate - azithromycin given in ED, but patient developed rash. Repeat CXR today. Significantly decreased BS's to lower half of L lung. Decrease Lasix to 40mg IV qd from BID (home dose is 40mg qd p.o.) given increasing creatinine. Resume home potassium of 10mEq qd. ECHO pending. Continue Miralax daily to help with bowel motivation. Can give MOM and prune juice if needed. Vitamin B12 resulted- normal. PT/OT to eval pt today to help increase strength and functional status. <DanyEddieTammy L - Last Filed: 09/10/17 18:11> - Date 09/10/17 Objective Vital signs: Temperature 97.3 F 09/10/17 15:11 Pulse Rate 69 09/10/17 15:11 Respiratory Rate 20 09/10/17 15:11 Blood Pressure 157/73 H 09/10/17 15:11 Pulse Oximetry 92 09/10/17 15:11 Height/Weight/BMI: Height 1.63 m Weight 121 kg Body Mass Index 45.8 Results - Labs CBC & Chem 7: 09/10/17 05:00 09/10/17 05:00 Assessment and Plan Assessment and Plan: 09/10/2017-I reviewed this chart, the patient history, and the OVERHEAD LINE WORKER's/PA's documented findings as above. We discussed and formulated the assessment and plan as above with the additions below.-Dr Saenz The patient was seen this evening. She states her breathing and cough are better compared to when she was admitted. Her weakness is better as well but she is still not back to normal. PT and OT did evaluate the patient and both recommended alf. She states her appetite is improving. She states she has had vaginal bleeding monthly for several months and sees a ski guide. On exam she is alert and oriented and in no acute distress. She is on 2 L of oxygen. Cardiovascular reveals a regular rate and rhythm. Chest reveals some expiratory wheezes mostly in the right lower lung field. There is decreased air movement in the left lower lung field. Abdomen is soft and nontender. Extremities reveal no edema in the lower legs. Patient does have edema of the left hip and pannus area. She has some skin breakdown over the left hip that has been there for a couple of months. This area is erythematous with pitting edema. She does not have similar erythema or edema on the right hip or pannus. Chest x-ray was viewed by myself and I agree with the radiology interpretation of a left pleural effusion and possible left basilar infiltrate versus atelectasis. Lab is otherwise fairly stable. Calcium remains mildly elevated at 10.4. Chronic kidney disease is stable. Impression and plan Re: Pneumonia, continue Rocephin currently day 3. Regarding pleural effusion and pulmonary edema, continue Lasix. Agree with decreased dosage. Regarding hypercalcemia, continue to monitor. Regarding edema, erythema, skin breakdown of the right hip-we'll consult Dr. Martinez Regarding generalized weakness-PT and OT recommend alf-we'll consult case management for help with arranging alf at discharge Echo is pending. Hospital Course Summary Disclaimer: The visit summary below is not to be considered part of the above Progress Note. Addendum entered and electronically signed by STACY Huizar 09/10/17 14:15 : Nurse reports pt's balbuena cath fell out. Will leave out at this time. Pt is able to transfer to bedside commode or bathroom.
--- NOTE | 2017-09-10 13:41 | XRay Report ---
Indication: CAP, hypoxia Procedure: XR chest 2V: Encounter: Subsequent Comparison: 09/08/2017, 03/22/2017 Technique: AP and lateral radiographs of the chest were obtained. Findings: Evaluation limited by suboptimal positioning with rightward patient rotation and poor inspiratory effort. Lungs and airways: Low lung volumes. Left basilar airspace opacities. Normal pulmonary vasculature. Pleura: Small to moderate left pleural effusion. No pneumothorax. Heart and mediastinum: The cardiomediastinal silhouette and great vessels appear unchanged. Osseous structures and soft tissues: No acute osseous abnormality is seen. Degenerative changes of the shoulders and thoracic spine. Impression: Persistent small to moderate left pleural effusion and left basilar airspace opacities which could represent pneumonia with secondary pleural effusion versus pleural effusion and resulting relaxation atelectasis. .
--- NOTE | 2017-09-10 18:48 | General Surgery Consult Note ---
Consult date: 09/11/17 Attending Physician: Tammy Saenz MD Reason for consult: wound care [facility] Patient Stated Medical History Dementia Yes Migraine Yes Cataracts Yes Dental Problems Yes: TEETH REMOVED Dysphagia Yes Glaucoma Yes Macular Degeneration Yes Other HEENT Yes: wears glasses Angina Yes Hypertension Yes Pneumonia Yes Sleep Apnea Yes: INCONCLUSIVE Gastroesophageal Reflux Yes Disease Other GI Yes: HEMRRHOIDS. Hx Incontinence Yes: previous Anemia Yes Osteoarthritis Yes Other Musculoskeletal Yes: FIBROMYALGIA Shingles Yes Depression Yes Clinic Medical History Precordial pain (Acute Medical) Shortness of breath (Acute Medical) Essential (primary) hypertension (Acute Medical) Mixed hyperlipidemia (Acute Medical) Chronic kidney disease (Acute Medical) Community acquired pneumonia (Acute Medical) Hypoxemia requiring supplemental oxygen (Acute Medical) Pulmonary edema (Acute Medical) CKD (chronic kidney disease) (Acute Medical) Dementia (Acute Medical) Depression (Acute Medical) Dyslipidemia (Acute Medical) Family history of CVA (Acute Medical) Fibromyalgia (Acute Medical) HTN (hypertension) (Acute Medical) Hypothyroid (Acute Medical) Lumbar spinal stenosis (Acute Medical) Osteoarthritis (Acute Medical) Osteoporosis (Acute Medical) Restless leg syndrome (Acute Medical) Urinary incontinence (Acute Medical) Surgical History: cholecystectomy, thyroid surgery 2, cardiac stent 1 (April 2017-Dr. Botello) Family History: Father- from lymphoma Mother- at age 97 from "old age." Had breast cancer in her 80s Sister-lung cancer Brother-lung cancer with metastases Daughter- at age 56. Had heart valve replacement and implanted defibrillator Son - [place] - Social History Smoking status: Never smoker Current residence: Apartment/Private Home Medications Home Medications Medication Instructions Recorded Confirmed Type Atorvastatin Calcium [Lipitor] 20 mg PO HS #0 04/03/10 09/08/17 History Multivitamin,Therapeutic [Oncovite] 1 tab PO DAILY #0 10/24/10 09/08/17 History Duloxetine [Cymbalta] 60 mg PO HS #0 cap 03/11/14 09/08/17 History Aspirin [Aspir-Low] 1 tab PO DAILY #0 12/15/15 09/08/17 History Nitrostat (nitroglycerin) 0.4 mg 0.4 mg SL PRN PRN 10 Days #25 03/22/17 History sublingual tablet Cetirizine HCl 10 mg PO DAILY PRN 04/02/17 09/08/17 History Cholecalciferol (Vitamin D3) 5,000 cap PO WEEKLY 04/02/17 09/08/17 History [Vitamin D3] Isosorbide Mononitrate ER [Imdur] 30 mg PO QAM 04/02/17 09/08/17 History Quetiapine [SEROquel] 200 mg PO HS 04/02/17 09/08/17 History Lasix (Furosemide) 40 mg tablet 40 mg PO . tab 06/04/17 09/08/17 History Namzaric (memantine ER) 7 1 cap PO Q24H 06/04/17 09/08/17 History mg-donepezil 10 mg capsule sprinkle, 24 hour Acetaminophen [Acetaminophen Extra 1,000 mg PO Q6HR PRN 09/08/17 09/08/17 History Strength] LORazepam [Lorazepam] 1 mg PO HS PRN 09/08/17 09/08/17 History Naproxen [Aleve] 220 mg PO DAILY 09/08/17 09/08/17 History Pantoprazole Sodium [Protonix] 40 mg PO ACB 09/08/17 09/08/17 History Potassium Chloride [Klor-Con 10] 10 meq PO . 09/08/17 09/08/17 History Pregabalin Cap [Lyrica] 75 mg PO BID 09/08/17 09/08/17 History Allergies Allergy/AdvReac Type Severity Reaction Status Date / Time azithromycin Allergy Intermediate Rash Verified 09/08/17 18:15 Iodine and Iodide Containing Allergy Unknown ITCHING Verified 06/04/17 13:37 Produc Review of Systems 10-point ROS: negative except for HPI and the following: - General General: Present: chills (prior to admission) - Respiratory Respiratory: Present: difficulty breathing, cough - Gastrointestinal Gastrointestinal: Present: constipation, other (GERD) - Genitourinary Genitourinary: Present: other (incontinence) - Musculoskeletal Musculoskeletal: Present: joint pain (uses a walker for short distances in the house and to occasionally get to the car so her daughter can take her places) - Neurological Neurological: Present: muscle weakness - Psychiatric Psychiatric: Present: anxiety, depression - Endocrine Endocrine: Present: thyroid problems - Hematologic/Lymphatic Hematologic/Lymphatic: Present: easy bruising, use of blood thinners - Vital Signs Last Vital Signs Temp 97.3 F 09/10/17 15:11 Pulse 69 09/10/17 15:11 Resp 20 09/10/17 15:11 BP 157/73 H 09/10/17 15:11 Pulse Ox 92 09/10/17 15:11 - Laboratory Result Diagrams: 09/11/17 04:03 09/11/17 04:03 General Surgery Results - Results Labs: 09/10/17 05:00 09/10/17 05:00 Hospital Course Summary Disclaimer: The visit summary below is not to be considered part of the above Progress Note. Hospital Course: Assessment Acute hypoxic respiratory failure Pneumonia Pulmonary edema Essential (primary) hypertension Mixed hyperlipidemia CKD (chronic kidney disease) Stage III Dementia Depression Fibromyalgia Hypothyroid Lumbar spinal stenosis Osteoarthritis Osteoporosis Restless leg syndrome Urinary incontinence Morbid Obesity with BMI 46.2 09/08/17 Hospital Admission Admit to inpatient status under the hospitalist service. Length of stay is expected to exceed 2 overnights given her hypoxic state and comorbidities. Lovenox and SCDs for VTE prophylaxis. Continue all home meds with the exception of Lasix as this will be given IV at 40mg q 8 hours. Telemetry and oximetry. O2 to keep sats greater than 90%. Rocephin for pulmonary coverage. Respiratory panel ordered. [place] catheter placement with urinalysis on admission. TSH, magnesium, troponin, repeat BMP and CBC in the a.m. Monitor I and O's and check daily weights. Patient requests DO NOT RESUSCITATE CODE STATUS. Care to be returned to Dr. Loo on dismissal. 09/09/17 Continue with Rocephin for pulmonary coverage of infiltrate - azithromycin given in ED, but patient developed rash. DuoNeb QID, budesonide BID, and Acapella QID to help loosen secretions. Continue with supplemental O2. Viral respiratory panel negative. Decrease Lasix to 40mg IV BID to help decrease pulm edema. Potassium with decrease to 3.8 - will give 20mEq KCl. Check ECHO in am. 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 Serial troponin negative. Start Miralax daily to help with bowel motivation. TSH with slight increase - likely euthyroid sick - continue with home dose. Could repeat in outpatient setting in 3 months. Vitamin B12 pending - normal when checked last, but trending down. Consult PT/OT in am to help increase strength and functional status. Recheck CBC in am due to pneumonia. Recheck BMP/Mg in am due to diuretic use and CKD. 09/10/17 Continue with Rocephin for pulmonary coverage of infiltrate - azithromycin given in ED, but patient developed rash. Repeat CXR today. Significantly decreased BS's to lower half of L lung. Decrease Lasix to 40mg IV qd from BID (home dose is 40mg qd p.o.) given increasing creatinine. Resume home potassium of 10mEq qd. ECHO pending. Continue Miralax daily to help with bowel motivation. Can give MOM and prune juice if needed. Vitamin B12 resulted- normal. PT/OT to eval pt today to help increase strength and functional status.
[2017-09-10] MEDS: SALINE FLUSH 10ml SYRINGE IVF PRN (21:05)
[2017-09-10] MEDS: ATORVASTATIN 20 MG TABLET PO SCH (21:06)
[2017-09-10] MEDS: DULOXETINE 30 MG CAPSULE PO SCH (21:06)
[2017-09-10] MEDS: DONEPEZIL 10 MG TABLET PO SCH (21:07)
[2017-09-10] MEDS: QUETIAPINE 200 MG TABLET PO SCH (21:07)
--- NOTE | 2017-09-10 22:32 | Echocardiogram ---
DATE OF PROCEDURE September 10, 2017 This is a two-dimensional echo with spectral Doppler, color-flow and M-mode. It was obtained in a patient with dyspnea. This was a technically difficult study. Left atrial measurement was not obtained. However, it appears to be dilated. Left ventricular end-diastolic dimension is increased. Left ventricular wall thickness increased. LV systolic function appears to be normal with ejection fraction of about 55%. Right atrium appears to be dilated. Right ventricle is normal. Aortic root dimension is normal. Mitral valve appears to be normal with trace of mitral regurgitation. Aortic valve was not visualized well. However, Doppler studies indicate no stenosis or insufficiency. Tricuspid valve shows mild tricuspid regurgitation with normal estimated pulmonary artery systolic pressure of 30. Pulmonary valve was not visualized. There is no pericardial effusion. Pleural effusion is present. IMPRESSION 1. Technically difficult study. 2. Left ventricular dilation. 3. Biatrial dilation. 4. Concentric left ventricular hypertrophy. 5. Pleural effusion. 6. Normal LV systolic function with ejection fraction of 55%. 7. Trace of mitral regurgitation. 8. Mild tricuspid regurgitation with normal estimated pulmonary artery systolic pressure of 30. MTDD
[2017-09-11] MEDS: LEVOTHYROXINE 200 MCG TABLET PO SCH (06:20)
[2017-09-11] MEDS: PANTOPRAZOLE 40 MG TABLET PO SCH (06:20)
[2017-09-11] MEDS: BUDESONIDE INH.SOLN 0.5mg/2ml NEB AEROSOL SCH ×2 (08:05→18:42)
[2017-09-11] MEDS: ALBUTEROL/IPRATROPIUM 2.5mg-0.5mg/3ml NEB AEROSOL SCH ×4 (08:06→18:42)
[2017-09-11] MEDS: MULTI-VITAMIN + MINERAL TABLET PO SCH (09:17)
[2017-09-11] MEDS: PREGABALIN 75 MG CAPSULE PO SCH ×2 (09:17→21:26)
[2017-09-11] MEDS: ISOSORBIDE MONONITRATE ER 30 MG TABLET PO SCH (09:18)
[2017-09-11] MEDS: AMLODIPINE 5 MG TABLET PO SCH ×2 (09:18→21:25)
[2017-09-11] MEDS: CLOPIDOGREL 75 MG TABLET PO SCH (09:19)
[2017-09-11] MEDS: ALLOPURINOL 300 MG TABLET PO SCH (09:19)
[2017-09-11] MEDS: ENOXAPARIN 40 MG/0.4 ML INJECTION SQ SCH (09:19)
[2017-09-11] MEDS: MEMANTINE 5 MG TABLET PO SCH ×2 (09:19→21:26)
[2017-09-11] MEDS: CEFTRIAXONE 1 G in NS 100 ML IV SCH (09:20)
[2017-09-11] MEDS: FUROSEMIDE 40 MG/4 ML INJECTION IVP SCH (09:23)
[2017-09-11] MEDS: TRAMADOL 50 MG TABLET PO SCH ×2 (09:24→21:25)
[2017-09-11] MEDS: ASPIRIN *EC* 81 MG TABLET PO SCH (09:24)
[2017-09-11] MEDS: POLYETHYL GLYCOL 3350 17gm PACKET PO SCH (09:24)
[2017-09-11] MEDS: SALINE 0.65% NASAL SPRAY 44 ML BOTTLE EA NOSTRIL SCH ×4 (09:25→21:26)
--- NOTE | 2017-09-11 18:44 | Progress Note ---
- Date 09/11/17 Subjective: The patient is seen in her room this evening. She states in someway she's feeling better and in someway she is not. She is currently not wearing her oxygen. She states she gets short of breath at times. I put her oximetry on on room air and her oxygen level varied from 89-92% while I was in the room. I did put her oxygen back on 1 L. She is eating and drinking okay. She has some pain in the left hip and pannus area where she appears to have some cellulitis. She has chronic incontinence of urine. She states this limits her from leaving the house. Objective Vital signs: Temperature 96.8 F 09/11/17 16:00 Pulse Rate 80 09/11/17 16:00 Respiratory Rate 16 09/11/17 16:00 Blood Pressure 164/87 H 09/11/17 16:00 Pulse Oximetry 93 09/11/17 16:00 Height/Weight/BMI: Height 1.63 m Weight 118 kg Body Mass Index 45.8 Comments: GEN-alert, no acute distress HEENT-sclera anicteric, oropharynx is moist NECK-supple CV-regular rate and rhythm CHEST-clear to auscultation anteriorly ABD-soft, obese, nontender. She does have some tenderness over the left lateral pannus area where she has erythema -no [place] EXT-trace lower extremity edema NEURO-no focal deficits SKIN-warm and dry, significant for cellulitis and pitting edema over the left pannus/left buttock area Results - Labs CBC & Chem 7: 09/11/17 04:03 09/11/17 04:03 - Echocardiogram Echocardiogram: Echocardiogram IMPRESSION 1. Technically difficult study. 2. Left ventricular dilation. 3. Biatrial dilation. 4. Concentric left ventricular hypertrophy. 5. Pleural effusion. 6. Normal LV systolic function with ejection fraction of 55%. 7. Trace of mitral regurgitation. 8. Mild tricuspid regurgitation with normal estimated pulmonary artery systolic pressure of 30. Assessment and Plan Assessment and Plan: Assessment Acute hypoxic respiratory failure -improving Pneumonia Pulmonary edema/pleural effusion Cellulitis left lateral pannus/buttock hip with mild skin breakdown Essential (primary) hypertension Mixed hyperlipidemia CKD (chronic kidney disease) Stage III Dementia Depression Fibromyalgia Hypothyroid Lumbar spinal stenosis Osteoarthritis Osteoporosis Restless leg syndrome Urinary incontinence Morbid Obesity with BMI 46.2 Hypercalcemia-resolved Generalized weakness-ET and OT recommend jail at discharge Recurrent vaginal bleeding-the patient needs to follow-up with 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 She is requiring 1 L of oxygen now. Continue breathing treatments Continue Rocephin for pneumonia and cellulitis Recheck CBC and basic metabolic profile tomorrow May need to increase Lasix tomorrow. Weight is down to 118 kg down from 121 kg Check chest x-ray in the morning Recommend jail at discharge Discussed today with Dr. Martinez who evaluated the patient's cellulitis/ wound. Wound care will continue to monitor. He agrees with antibiotics. Will start calmoseptine. Hospital Course Summary Disclaimer: The visit summary below is not to be considered part of the above Progress Note. Hospital Course: Assessment Acute hypoxic respiratory failure Pneumonia Pulmonary edema Essential (primary) hypertension Mixed hyperlipidemia CKD (chronic kidney disease) Stage III Dementia Depression Fibromyalgia Hypothyroid Lumbar spinal stenosis Osteoarthritis Osteoporosis Restless leg syndrome Urinary incontinence Morbid Obesity with BMI 46.2 09/08/17 Hospital Admission Admit to inpatient status under the hospitalist service. Length of stay is expected to exceed 2 overnights given her hypoxic state and comorbidities. Lovenox and SCDs for VTE prophylaxis. Continue all home meds with the exception of Lasix as this will be given IV at 40mg q 8 hours. Telemetry and oximetry. O2 to keep sats greater than 90%. Rocephin for pulmonary coverage. Respiratory panel ordered. [place] catheter placement with urinalysis on admission. TSH, magnesium, troponin, repeat BMP and CBC in the a.m. Monitor I and O's and check daily weights. Patient requests DO NOT RESUSCITATE CODE STATUS. Care to be returned to Dr. Loo on dismissal. 09/09/17 Continue with Rocephin for pulmonary coverage of infiltrate - azithromycin given in ED, but patient developed rash. DuoNeb QID, budesonide BID, and Acapella QID to help loosen secretions. Continue with supplemental O2. Viral respiratory panel negative. Decrease Lasix to 40mg IV BID to help decrease pulm edema. Potassium with decrease to 3.8 - will give 20mEq KCl. Check ECHO in am. 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 Serial troponin negative. Start Miralax daily to help with bowel motivation. TSH with slight increase - likely euthyroid sick - continue with home dose. Could repeat in outpatient setting in 3 months. Vitamin B12 pending - normal when checked last, but trending down. Consult PT/OT in am to help increase strength and functional status. Recheck CBC in am due to pneumonia. Recheck BMP/Mg in am due to diuretic use and CKD. 09/10/17 Continue with Rocephin for pulmonary coverage of infiltrate - azithromycin given in ED, but patient developed rash. Repeat CXR today. Significantly decreased BS's to lower half of L lung. Decrease Lasix to 40mg IV qd from BID (home dose is 40mg qd p.o.) given increasing creatinine. Resume home potassium of 10mEq qd. ECHO pending. Continue Miralax daily to help with bowel motivation. Can give MOM and prune juice if needed. Vitamin B12 resulted- normal. PT/OT to eval pt today to help increase strength and functional status.
--- NOTE | 2017-09-11 18:45 | Consultation ---
DATE OF CONSULTATION 09/11/2017 FINDINGS Mrs. Alvarez is a 77-year-old female whom I was asked to see today as a new patient for evaluation of cellulitis and a small wound involving her left lateral hip as well as a wound within the left inguinal region. The patient did not appear to be best historian but I was able to obtain some information from the patient as well as upon reviewing the patient's history and physical. The patient apparently had presented to our emergency room facility as a result of increasing shortness of breath and cough as well as progressive weakness. The patient was found to have a component of some pulmonary edema and acute hypoxic respiratory failure and was admitted to our facility for further care. Following her admission she was found to have a few small wounds and an area of cellulitis and therefore a consult was put forth to myself. Patient informs me that her primary care physician is Dr. Loo. She informs me that Dr. Loo has told her that she has "walking bed sores" in the past. Patient states that she has been noticing a moderate amount of discomfort involving the left inguinal region. States she has a "burning sensation" in this area. The patient also states that she has had some tenderness involving her left lateral hip. The patient states that her daughter has tried to "doctor this area in the past." Upon evaluating the patient it appeared that there was perhaps a component of traumatic shear force applied to her left lateral buttock/abdominal wall region. I questioned the patient in regards to any history of trauma at this location such as "sitting in too small of a chair." Patient informs me that she did "sit in too small of a wheelchair" in the past and it did result in trauma to this area. She states that she has had problems "ever since this prior event." PAST MEDICAL HISTORY, PAST SURGICAL HISTORY, MEDICATIONS, ALLERGIES, SOCIAL HISTORY, FAMILY HISTORY, REVIEW OF SYSTEMS Performed by my nurse practitioner, Fernando Moses APRN. PHYSICAL EXAMINATION GENERAL: Mrs. Alvarez is a pleasant 77-year-old female who does not appear to be in acute distress. VITAL SIGNS: Temperature 96.8, pulse 80, respirations 16, blood pressure 164/87 , SAO2 93% on 2 L/nasal cannula. HEENT: Normocephalic. Pupils are equally round and react to light and accommodation. CHEST: Clear to auscultation bilaterally. HEART: Regular rate and rhythm. Normal S1 and S2 without gallops, murmurs or clicks. ABDOMEN: Visualization of the abdomen does reveal it to be fairly protuberant in its overall appearance, i.e., the patient has a component of obesity. The patient does have somewhat of a "pannus." Her pannus was lifted in a cephalad fashion so that her groin regions could be inspected. Within the left inguinal/ groin region one can see a small linear tear-like area that is about 4 cm in length and about 5-8 mm in width. This corresponds to the patient's report of pain within this region. The surrounding skin does not appear to be macerated in nature. It does not appear that there is "excess moisture" in this area. Attention was then focused to the left lateral abdominal wall. There is some area of erythema that is about 15 cm to perhaps 20 cm in greatest circumference. Palpation of this area does reveal some underlying induration. I was unable to appreciate any evidence for fluctuance to suggest an underlying abscess. There was a small abrasion/linear tear area where the epidermis was void. This open portion of the wound was fairly small and only on the order of 8 mm in diameter. There was no evidence of any necrotic tissue at this location. There was no "purpura" involving the skin. EXTREMITIES: Patient does have a component of some pretibial edema. NEURO: Cranial nerves II-XII grossly intact. Patient is without focal motor or sensory deficits. ASSESSMENT 77-year-old female admitted for acute hypoxic failure. Patient with area of cellulitis involving left lateral hip with small associated open wound. Patient also found to have small open wound within left inguinal region. PLAN I recommend that we simply place Calmoseptine overlying the ulcerated areas of the epidermis. I do see that the wound care staff has been by and placed a coffee filter within the left inguinal region. We will continue with this to wick away any excess moisture within the inguinal region that may be present. As stated above, I did not see significant maceration of the skin to suggest excess moisture although we will continue with this therapy. The patient is currently on antibiotics consisting of Rocephin. This should have fairly good skin coverage and will follow the area of erythema involving the left lateral hip region. I question whether or not the patient may be sitting in some type of chair at home where there is some friction and pressure being applied to her left lateral buttocks and lateral abdominal wall region. Will continue to follow along in the patient's care. MERLINE
[2017-09-11] MEDS ORDERED: FALL RISK - PHARMACY CONSULT XX ONE (19:42)
[2017-09-11] MEDS: DULOXETINE 30 MG CAPSULE PO SCH (21:25)
[2017-09-11] MEDS: ATORVASTATIN 20 MG TABLET PO SCH (21:25)
[2017-09-11] MEDS: DONEPEZIL 10 MG TABLET PO SCH (21:26)
[2017-09-11] MEDS: QUETIAPINE 200 MG TABLET PO SCH (21:26)
[2017-09-11] MEDS: SALINE FLUSH 10ml SYRINGE IVF PRN (21:26)
[2017-09-12] MEDS: LEVOTHYROXINE 200 MCG TABLET PO SCH (06:33)
[2017-09-12] MEDS: SALINE FLUSH 10ml SYRINGE IVF PRN (06:33)
[2017-09-12] MEDS: TRAMADOL 50 MG TABLET PO PRN ×2 (06:38→17:24)
[2017-09-12] MEDS: PANTOPRAZOLE 40 MG TABLET PO SCH (07:29)
[2017-09-12] MEDS: ALBUTEROL/IPRATROPIUM 2.5mg-0.5mg/3ml NEB AEROSOL SCH ×4 (07:51→18:56)
[2017-09-12] MEDS: BUDESONIDE INH.SOLN 0.5mg/2ml NEB AEROSOL SCH ×2 (07:51→18:56)
--- NOTE | 2017-09-12 08:45 | XRay Report ---
INDICATION: pulm edema, pneumonia, pleural effusions PROCEDURE: CHEST 2-VIEWS UPRIGHT (PA & LAT) Encounter: Initial COMPARISON: September 10, 2017 FINDINGS: Worsening airspace consolidation in the medial left upper lobe. Increasing small to moderate left effusion. Right lung is grossly clear. No pneumothorax. Heart size and mediastinal contours are stable. Pulmonary vascularity is slightly prominent but unchanged. Impression: Worsening left upper lobe consolidation and increasing size left effusion. .
[2017-09-12] MEDS: CEFTRIAXONE 1 G in NS 100 ML IV SCH (08:49)
[2017-09-12] MEDS: ENOXAPARIN 40 MG/0.4 ML INJECTION SQ SCH (08:50)
[2017-09-12] MEDS: POLYETHYL GLYCOL 3350 17gm PACKET PO SCH (08:50)
[2017-09-12] MEDS: FUROSEMIDE 40 MG/4 ML INJECTION IVP SCH (08:50)
[2017-09-12] MEDS: TRAMADOL 50 MG TABLET PO SCH ×2 (08:51→21:31)
[2017-09-12] MEDS: ISOSORBIDE MONONITRATE ER 30 MG TABLET PO SCH (08:51)
[2017-09-12] MEDS: ALLOPURINOL 300 MG TABLET PO SCH (08:51)
[2017-09-12] MEDS: PREGABALIN 75 MG CAPSULE PO SCH ×2 (08:52→21:31)
[2017-09-12] MEDS: AMLODIPINE 5 MG TABLET PO SCH ×2 (08:52→21:33)
[2017-09-12] MEDS: ASPIRIN *EC* 81 MG TABLET PO SCH (08:52)
[2017-09-12] MEDS: MEMANTINE 5 MG TABLET PO SCH ×2 (08:52→21:34)
[2017-09-12] MEDS: CLOPIDOGREL 75 MG TABLET PO SCH (08:52)
[2017-09-12] MEDS: MULTI-VITAMIN + MINERAL TABLET PO SCH (08:52)
[2017-09-12] MEDS: SALINE 0.65% NASAL SPRAY 44 ML BOTTLE EA NOSTRIL SCH ×4 (09:02→21:37)
--- NOTE | 2017-09-12 13:29 | Progress Note ---
<Anabell Muñoz - Last Filed: 09/12/17 13:26> - Date 09/12/17 Subjective: Patient seen today sitting in her chair. She reports she is doing better, but is not "good." She does feel her breathing is improving. Still having a cough where she feels like she cannot cough out the sputum. Therapy has worked with her some today. No chest pain. She is down to 1 L of oxygen. Objective Vital signs: Temperature 97.2 F 09/12/17 08:00 Pulse Rate 69 09/12/17 08:00 Respiratory Rate 22 09/12/17 12:00 Blood Pressure 160/76 H 09/12/17 08:00 Pulse Oximetry 96 09/12/17 12:00 Height/Weight/BMI: Height 1.63 m Weight 120.2 kg Body Mass Index 45.8 - Constitutional Present: no acute distress, well nourished, well developed, obese - Routine Respiratory Exam Present: decreased breath sounds (left lower lobe), CTA bilaterally. Absent: wheezes - Routine Cardiovascular Exam Present: RRR. Absent: murmur - Routine Abdominal Exam Present: soft, normoactive bowel sounds, tenderness, non distended - Routine Extremities Exam Present: edema (trace left, 1+ right. (Chronic per patient)), normal capillary refill - Routine Skin Exam Present: erythema (erythema to the left lateral trunk and hip. At the present time shows Calmoseptine to the entire area.), dry, warm - Routine Neurological Exam Present: alert, oriented X3 - Routine Lymphatic Exam Lymphatic: Absent: adenopathy - Routine Psychiatric Exam Present: normal affect, normal thought process, cooperative Results - Labs CBC & Chem 7: 09/12/17 04:19 09/12/17 04:19 Assessment and Plan Assessment and Plan: Assessment Acute hypoxic respiratory failure -improving Hypokalemia - not POA Pneumonia Pulmonary edema/pleural effusion Cellulitis left lateral pannus/buttock hip with mild skin breakdown Essential (primary) hypertension Mixed hyperlipidemia CKD (chronic kidney disease) Stage III Dementia Depression Fibromyalgia Hypothyroid Lumbar spinal stenosis Osteoarthritis Osteoporosis Restless leg syndrome Urinary incontinence Morbid Obesity with BMI 46.2 Hypercalcemia-resolved Generalized weakness-ET and OT recommend halfway at discharge Recurrent vaginal bleeding-the patient needs to follow-up with her jordan worker as an outpatient Echo reveals normal ejection fraction, left ventricular dilation, biatrial dilation, concentric left ventricular hypertrophy, normal PA pressure Plan Increase Toprol XL from 50 to 100mg daily for better BP control. She had 50mg this am. Will give another 50mg this evening and start 100mg qd tomorrow. Hypokalemic today - she was given one time dose of 40mEq KCl this am. Weight is back up today. CXR shows increasing left effusion and worsening JOANNA consolidation. Give an extra 40mg IV Lasix and 20mEq KCl now. Continue daily Lasix 40mg IV q am and increase daily KCl from 10 to 20mEq tomorrow. Continue Rocephin. Clinically patient is improving and WBC remains normal, would not add additional atbx coverage at this time. Repeat CBC and BMP in am to follow WBC and renal function/electrolytes. Wound care is monitoring area on L trunk/hip. Continue calmoseptine. Continue Duoneb and acapella tx. Add mucinex for mucolytic. Hospital Course Summary Disclaimer: The visit summary below is not to be considered part of the above Progress Note. Hospital Course: Assessment Acute hypoxic respiratory failure Pneumonia Pulmonary edema Essential (primary) hypertension Mixed hyperlipidemia CKD (chronic kidney disease) Stage III Dementia Depression Fibromyalgia Hypothyroid Lumbar spinal stenosis Osteoarthritis Osteoporosis Restless leg syndrome Urinary incontinence Morbid Obesity with BMI 46.2 09/08/17 Hospital Admission Admit to inpatient status under the hospitalist service. Length of stay is expected to exceed 2 overnights given her hypoxic state and comorbidities. Lovenox and SCDs for VTE prophylaxis. Continue all home meds with the exception of Lasix as this will be given IV at 40mg q 8 hours. Telemetry and oximetry. O2 to keep sats greater than 90%. Rocephin for pulmonary coverage. Respiratory panel ordered. [place] catheter placement with urinalysis on admission. TSH, magnesium, troponin, repeat BMP and CBC in the a.m. Monitor I and O's and check daily weights. Patient requests DO NOT RESUSCITATE CODE STATUS. Care to be returned to Dr. Loo on dismissal. 09/09/17 Continue with Rocephin for pulmonary coverage of infiltrate - azithromycin given in ED, but patient developed rash. DuoNeb QID, budesonide BID, and Acapella QID to help loosen secretions. Continue with supplemental O2. Viral respiratory panel negative. Decrease Lasix to 40mg IV BID to help decrease pulm edema. Potassium with decrease to 3.8 - will give 20mEq KCl. Check ECHO in am. 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 Serial troponin negative. Start Miralax daily to help with bowel motivation. TSH with slight increase - likely euthyroid sick - continue with home dose. Could repeat in outpatient setting in 3 months. Vitamin B12 pending - normal when checked last, but trending down. Consult PT/OT in am to help increase strength and functional status. Recheck CBC in am due to pneumonia. Recheck BMP/Mg in am due to diuretic use and CKD. 09/10/17 Continue with Rocephin for pulmonary coverage of infiltrate - azithromycin given in ED, but patient developed rash. Repeat CXR today. Significantly decreased BS's to lower half of L lung. Decrease Lasix to 40mg IV qd from BID (home dose is 40mg qd p.o.) given increasing creatinine. Resume home potassium of 10mEq qd. ECHO pending. Continue Miralax daily to help with bowel motivation. Can give MOM and prune juice if needed. Vitamin B12 resulted- normal. PT/OT to eval pt today to help increase strength and functional status. 09/11/17 Overall, patient appears to be doing better. She is requiring 1 L of oxygen now. Continue breathing treatments Continue Rocephin for pneumonia and cellulitis Recheck CBC and basic metabolic profile tomorrow May need to increase Lasix tomorrow. Weight is down to 118 kg down from 121 kg Check chest x-ray in the morning Recommend halfway at discharge Discussed today with Dr. Martinez who evaluated the patient's cellulitis/ wound. Wound care will continue to monitor. He agrees with antibiotics. Will start calmoseptine. 09/12/17 Increase Toprol XL from 50 to 100mg daily for better BP control. She had 50mg this am. Will give another 50mg this evening and start 100mg qd tomorrow. Hypokalemic today - she was given one time dose of 40mEq KCl this am. Weight is back up today. CXR shows increasing left effusion and worsening JOANNA consolidation. Give an extra 40mg IV Lasix and 20mEq KCl now. Continue daily Lasix 40mg IV q am and increase daily KCl from 10 to 20mEq tomorrow. Continue Rocephin. Clinically patient is improving and WBC remains normal, would not add additional atbx coverage at this time. Repeat CBC and BMP in am to follow WBC and renal function/electrolytes. Wound care is monitoring area on L trunk/hip. Continue calmoseptine. Continue Duoneb and acapella tx. Add mucinex for mucolytic. <Tammy Saenz - Last Filed: 09/12/17 18:26> - Date 09/12/17 Objective Vital signs: Temperature 96.2 F L 09/12/17 15:48 Pulse Rate 68 09/12/17 15:48 Respiratory Rate 20 09/12/17 15:48 Blood Pressure 151/80 H 09/12/17 15:48 Pulse Oximetry 96 09/12/17 15:48 Height/Weight/BMI: Height 1.63 m Weight 120.2 kg Body Mass Index 45.8 Results - Labs CBC & Chem 7: 09/12/17 04:19 09/12/17 04:19 Assessment and Plan Assessment and Plan: 09/12/2017-I reviewed this chart, the patient history, and the BAND TIER's/PA's documented findings as above. We discussed and formulated the assessment and plan as above with the additions below.-Dr. Saenz The patient was seen this evening in her room. She had a sudden spasm of pain in the left hip area that came and went suddenly. She states she's had these off and on for years. She states she continues to have a cough but it's getting better. She denies shortness of breath currently. She denies any chest pain. She is eating and drinking okay. On exam she is alert and oriented. She is currently on 3 L. Chest reveals minimal coarse breath sounds. Cardiovascular reveals a regular rate and rhythm. Abdomen is soft, obese, nontender with positive bowel sounds. Left pannus hip area reveals some continued erythema, mild improvement from Sunday. Extremities are free of edema. Chest x-ray on my read and per radiology shows increased pleural effusion and left upper lobe infiltrate. Impression and plan Slowly improving pneumonia, acute respiratory failure, edema. Continue antibiotics. Continue cautious diuresis. When the patient is finished her course of antibiotics for pneumonia, she may need further antibiotics for cellulitis. Increase activity as tolerated. PT and OT recommend halfway at discharge. Discussed with case management. Possible discharge later this week. Hospital Course Summary Disclaimer: The visit summary below is not to be considered part of the above Progress Note.
[2017-09-12] MEDS ORDERED: FUROSEMIDE 40 MG/4 ML INJECTION IVP ONE (13:42)
[2017-09-12] MEDS: DULOXETINE 30 MG CAPSULE PO SCH (21:32)
[2017-09-12] MEDS: ATORVASTATIN 20 MG TABLET PO SCH (21:33)
[2017-09-12] MEDS: DONEPEZIL 10 MG TABLET PO SCH (21:34)
[2017-09-12] MEDS: QUETIAPINE 200 MG TABLET PO SCH (21:35)
[2017-09-12] MEDS: GUAIFENESIN LA 600 MG TABLET PO SCH (21:36)
[2017-09-13] MEDS: TRAMADOL 50 MG TABLET PO PRN (04:55)
[2017-09-13] MEDS: LEVOTHYROXINE 200 MCG TABLET PO SCH (07:06)
[2017-09-13] MEDS: PANTOPRAZOLE 40 MG TABLET PO SCH (07:06)
[2017-09-13] MEDS: ALBUTEROL/IPRATROPIUM 2.5mg-0.5mg/3ml NEB AEROSOL SCH ×4 (07:20→19:27)
[2017-09-13] MEDS: BUDESONIDE INH.SOLN 0.5mg/2ml NEB AEROSOL SCH ×2 (07:25→19:28)
[2017-09-13] MEDS: FUROSEMIDE 40 MG/4 ML INJECTION IVP SCH (09:03)
[2017-09-13] MEDS: ASPIRIN *EC* 81 MG TABLET PO SCH (09:03)
[2017-09-13] MEDS: MULTI-VITAMIN + MINERAL TABLET PO SCH (09:04)
[2017-09-13] MEDS: GUAIFENESIN LA 600 MG TABLET PO SCH ×2 (09:04→22:35)
[2017-09-13] MEDS: CLOPIDOGREL 75 MG TABLET PO SCH (09:04)
[2017-09-13] MEDS: PREGABALIN 75 MG CAPSULE PO SCH ×2 (09:04→22:34)
[2017-09-13] MEDS: ALLOPURINOL 300 MG TABLET PO SCH (09:05)
[2017-09-13] MEDS: ISOSORBIDE MONONITRATE ER 30 MG TABLET PO SCH (09:05)
[2017-09-13] MEDS: AMLODIPINE 5 MG TABLET PO SCH ×2 (09:05→22:33)
[2017-09-13] MEDS: MEMANTINE 5 MG TABLET PO SCH ×2 (09:06→22:34)
[2017-09-13] MEDS: TRAMADOL 50 MG TABLET PO SCH ×2 (09:06→22:36)
[2017-09-13] MEDS: SALINE 0.65% NASAL SPRAY 44 ML BOTTLE EA NOSTRIL SCH ×4 (09:07→22:32)
[2017-09-13] MEDS: CEFTRIAXONE 1 G in NS 100 ML IV SCH ×2 (09:08→14:20)
[2017-09-13] MEDS: CALMOSEPTINE OINTMENT 113gm TUBE TP SCH (09:09)
[2017-09-13] MEDS: ENOXAPARIN 40 MG/0.4 ML INJECTION SQ SCH (09:10)
[2017-09-13] MEDS: POLYETHYL GLYCOL 3350 17gm PACKET PO SCH (09:10)
--- NOTE | 2017-09-13 13:06 | Progress Note ---
<Leticia Carmona D - Last Filed: 09/13/17 13:03> - Date 09/13/17 Subjective: Mrs. Alvarez is not feeling well today. She is having SOA, even at rest. She is having frequent loose stools that have been worsening since arriving in the hospital. She feels weak in general. She also started noticing an odd ear sensation, like air is rushing through. She denies vertigo or dizziness. She complains of chronic back and leg pain. Objective Vital signs: Temperature 97.8 F 09/13/17 08:00 Pulse Rate 69 09/13/17 08:00 Respiratory Rate 16 09/13/17 11:21 Blood Pressure 180/84 H 09/13/17 08:00 Pulse Oximetry 98 09/13/17 11:21 Height/Weight/BMI: Height 1.63 m Weight 119.8 kg Body Mass Index 45.8 - Constitutional Present: no acute distress, well nourished, well developed, morbidly obese - Routine HEENT Exam Eye: Absent: conjunctival icterus, scleral injection ENT: Present: mucous membranes moist, oropharynx clear, external ear normal, TM' s clear bilaterally - Routine Respiratory Exam Present: rales (mild to RLL), diminished air movement (left) - Routine Cardiovascular Exam Present: RRR, S1, S2, murmur - Routine Abdominal Exam Present: soft, normoactive bowel sounds, non tender - Routine Extremities Exam Present: edema (B/L LE) - Routine Skin Exam Present: erythema (Left lower back/hip area - area appears indurated and there is a small open lesion), warm - Routine Neurological Exam Present: alert, oriented X3, normal speech - Routine Psychiatric Exam Present: normal affect, normal thought process, cooperative Results - Labs CBC & Chem 7: 09/13/17 04:19 09/13/17 04:19 Assessment and Plan Assessment and Plan: Assessment Acute hypoxic respiratory failure - improving Hypokalemia - not POA - resolved Pneumonia Pulmonary edema/pleural effusion Cellulitis left lateral pannus/buttock hip with mild skin breakdown Essential (primary) hypertension Mixed hyperlipidemia CKD (chronic kidney disease) Stage III Dementia Depression Fibromyalgia Hypothyroid Lumbar spinal stenosis Osteoarthritis Osteoporosis Restless leg syndrome Urinary incontinence; occasional bowel incontinence Morbid Obesity with BMI 46.2 Hypercalcemia-resolved Generalized weakness - PT and OT recommend alf at discharge Recurrent vaginal bleeding-the patient needs to follow-up with her registered nurse practitioner as an outpatient Echo reveals normal ejection fraction, left ventricular dilation, biatrial dilation, concentric left ventricular hypertrophy, normal PA pressure Plan Continue Rocephin for pneumonia and for skin coverage. Dr. Martinez recommends applying Calmoseptine and keeping the skin dry. Increased subjective SOA but oxygen requirements have decreased to 2L. BP still quite elevated despite increasing Toprol XL to 100 mg She continues on both IV and PO Lasix - will discuss further with attending. K has improved. Weight down slightly from yesterday. Loose stools (3 yesterday, 1 today), some documented as liquid in nature - check C. diff. Monitor electrolytes with stool output. DVT Prophylaxis: Lovenox GI Prophylaxis: Protonix Resuscitation Status: Do Not Resuscitate Hospital Course Summary Disclaimer: The visit summary below is not to be considered part of the above Progress Note. Hospital Course: Assessment Acute hypoxic respiratory failure Pneumonia Pulmonary edema Essential (primary) hypertension Mixed hyperlipidemia CKD (chronic kidney disease) Stage III Dementia Depression Fibromyalgia Hypothyroid Lumbar spinal stenosis Osteoarthritis Osteoporosis Restless leg syndrome Urinary incontinence Morbid Obesity with BMI 46.2 09/08/17 Hospital Admission Admit to inpatient status under the hospitalist service. Length of stay is expected to exceed 2 overnights given her hypoxic state and comorbidities. Lovenox and SCDs for VTE prophylaxis. Continue all home meds with the exception of Lasix as this will be given IV at 40mg q 8 hours. Telemetry and oximetry. O2 to keep sats greater than 90%. Rocephin for pulmonary coverage. Respiratory panel ordered. [place] catheter placement with urinalysis on admission. TSH, magnesium, troponin, repeat BMP and CBC in the a.m. Monitor I and O's and check daily weights. Patient requests DO NOT RESUSCITATE CODE STATUS. Care to be returned to Dr. Loo on dismissal. 09/09/17 Continue with Rocephin for pulmonary coverage of infiltrate - azithromycin given in ED, but patient developed rash. DuoNeb QID, budesonide BID, and Acapella QID to help loosen secretions. Continue with supplemental O2. Viral respiratory panel negative. Decrease Lasix to 40mg IV BID to help decrease pulm edema. Potassium with decrease to 3.8 - will give 20mEq KCl. Check ECHO in am. 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 Serial troponin negative. Start Miralax daily to help with bowel motivation. TSH with slight increase - likely euthyroid sick - continue with home dose. Could repeat in outpatient setting in 3 months. Vitamin B12 pending - normal when checked last, but trending down. Consult PT/OT in am to help increase strength and functional status. Recheck CBC in am due to pneumonia. Recheck BMP/Mg in am due to diuretic use and CKD. 09/10/17 Continue with Rocephin for pulmonary coverage of infiltrate - azithromycin given in ED, but patient developed rash. Repeat CXR today. Significantly decreased BS's to lower half of L lung. Decrease Lasix to 40mg IV qd from BID (home dose is 40mg qd p.o.) given increasing creatinine. Resume home potassium of 10mEq qd. ECHO pending. Continue Miralax daily to help with bowel motivation. Can give MOM and prune juice if needed. Vitamin B12 resulted- normal. PT/OT to eval pt today to help increase strength and functional status. 09/11/17 Overall, patient appears to be doing better. She is requiring 1 L of oxygen now. Continue breathing treatments Continue Rocephin for pneumonia and cellulitis Recheck CBC and basic metabolic profile tomorrow May need to increase Lasix tomorrow. Weight is down to 118 kg down from 121 kg Check chest x-ray in the morning Recommend alf at discharge Discussed today with Dr. Martinez who evaluated the patient's cellulitis/ wound. Wound care will continue to monitor. He agrees with antibiotics. Will start calmoseptine. 09/12/17 Increase Toprol XL from 50 to 100mg daily for better BP control. She had 50mg this am. Will give another 50mg this evening and start 100mg qd tomorrow. Hypokalemic today - she was given one time dose of 40mEq KCl this am. Weight is back up today. CXR shows increasing left effusion and worsening JOANNA consolidation. Give an extra 40mg IV Lasix and 20mEq KCl now. Continue daily Lasix 40mg IV q am and increase daily KCl from 10 to 20mEq tomorrow. Continue Rocephin. Clinically patient is improving and WBC remains normal, would not add additional atbx coverage at this time. Repeat CBC and BMP in am to follow WBC and renal function/electrolytes. Wound care is monitoring area on L trunk/hip. Continue calmoseptine. Continue Duoneb and acapella tx. Add mucinex for mucolytic. 09/13/17 Continue Rocephin for pneumonia and for skin coverage. Dr. Martinez recommends applying Calmoseptine and keeping the skin dry. Increased subjective SOA but oxygen requirements have decreased to 2L. BP still quite elevated despite increasing Toprol XL to 100 mg She continues on both IV and PO Lasix - will discuss further with attending. K has improved. Weight down slightly from yesterday. Loose stools (3 yesterday, 1 today), some documented as liquid in nature - check C. diff. Monitor electrolytes with stool output. <DanyEddieTammy L - Last Filed: 09/13/17 18:25> - Date 09/13/17 Objective Vital signs: Temperature 97.8 F 09/13/17 08:00 Pulse Rate 69 09/13/17 08:00 Respiratory Rate 16 09/13/17 15:15 Blood Pressure 180/84 H 09/13/17 08:00 Pulse Oximetry 94 09/13/17 15:15 Height/Weight/BMI: Height 1.63 m Weight 119.8 kg Body Mass Index 45.8 Results - Labs CBC & Chem 7: 09/13/17 04:19 09/13/17 04:19 Assessment and Plan Assessment and Plan: 09/13/2017-I reviewed this chart, the patient history, and the RESIDENTIAL COLLECTIONS's/PA's documented findings as above. We discussed and formulated the assessment and plan as above with the additions below.-Dr. Saenz Patient is seen in her room this evening. She is sitting up in a chair. She states she didn't feel very well this afternoon but she feels good now. She did have some loose stools. She has some chronic achiness all over. Her Lyrica have not been resumed this hospitalization, and I will go ahead and restart it now. She is eating and drinking well. She states she is breathing well this evening. On exam she is alert and in no acute distress. Chest is clear to auscultation. Cardiovascular reveals a regular rate and rhythm. Abdomen is soft and nontender. The area on her left lateral pannus/hip area shows some mild decrease in erythema. Extremities are free of edema. Impression and plan Overall, the patient is slowly improving. Possible discharge soon. Consider switch to oral antibiotics for cellulitis when the patient is ready for discharge. Await results of C. difficile which is pending. The patient's nurse stated blood pressures have not been recorded in the computer yet but systolic was 140-150 this afternoon. Will order some when necessary hydralazine if needed. Hospital Course Summary Disclaimer: The visit summary below is not to be considered part of the above Progress Note.
[2017-09-13] MEDS ORDERED: HYDRALAZINE 10 MG TABLET PO PRN (18:25)
[2017-09-13] MEDS: ATORVASTATIN 20 MG TABLET PO SCH (22:33)
[2017-09-13] MEDS: DONEPEZIL 10 MG TABLET PO SCH (22:34)
[2017-09-13] MEDS: QUETIAPINE 200 MG TABLET PO SCH (22:34)
[2017-09-13] MEDS: DULOXETINE 30 MG CAPSULE PO SCH (22:36)
[2017-09-14] MEDS: TRAMADOL 50 MG TABLET PO PRN (06:08)
[2017-09-14] MEDS: LEVOTHYROXINE 200 MCG TABLET PO SCH (06:09)
[2017-09-14] MEDS: SALINE FLUSH 10ml SYRINGE IVF PRN (06:09)
[2017-09-14] MEDS: PANTOPRAZOLE 40 MG TABLET PO SCH (06:09)
[2017-09-14] MEDS: BUDESONIDE INH.SOLN 0.5mg/2ml NEB AEROSOL SCH (06:50)
[2017-09-14] MEDS: ALBUTEROL/IPRATROPIUM 2.5mg-0.5mg/3ml NEB AEROSOL SCH ×3 (06:50→14:59)
[2017-09-14 07:29] VITALS: BP 156/72; TEMP 98.4
[2017-09-14] MEDS: GUAIFENESIN LA 600 MG TABLET PO SCH (09:20)
[2017-09-14] MEDS: CLOPIDOGREL 75 MG TABLET PO SCH (09:21)
[2017-09-14] MEDS: PREGABALIN 75 MG CAPSULE PO SCH (09:21)
[2017-09-14] MEDS: ASPIRIN *EC* 81 MG TABLET PO SCH (09:22)
[2017-09-14] MEDS: MULTI-VITAMIN + MINERAL TABLET PO SCH (09:22)
[2017-09-14] MEDS: ALLOPURINOL 300 MG TABLET PO SCH (09:22)
[2017-09-14] MEDS: TRAMADOL 50 MG TABLET PO SCH (09:22)
[2017-09-14] MEDS: AMLODIPINE 5 MG TABLET PO SCH (09:22)
[2017-09-14] MEDS: ISOSORBIDE MONONITRATE ER 30 MG TABLET PO SCH (09:23)
[2017-09-14] MEDS: CEFTRIAXONE 1 G in NS 100 ML IV SCH (09:23)
[2017-09-14] MEDS: FUROSEMIDE 40 MG/4 ML INJECTION IVP SCH (09:23)
[2017-09-14] MEDS: ENOXAPARIN 40 MG/0.4 ML INJECTION SQ SCH (09:23)
[2017-09-14] MEDS: MEMANTINE 5 MG TABLET PO SCH (09:23)
[2017-09-14] MEDS: CALMOSEPTINE OINTMENT 113gm TUBE TP SCH (09:23)
[2017-09-14] MEDS: SALINE 0.65% NASAL SPRAY 44 ML BOTTLE EA NOSTRIL SCH ×2 (09:24→14:20)
[2017-09-14] MEDS: POLYETHYL GLYCOL 3350 17gm PACKET PO SCH (09:27)
[2017-09-14 09:28] VITALS: PULSE 72
--- NOTE | 2017-09-14 13:30 | Progress Note ---
- Date 09/14/17 Subjective: F/U: Acute hypoxic respiratory failure, pneumonia Doing slightly better-breathing easier, but still needing O2. Cough and congestion, but not able to clear sputum. No chest wall pain from cough. Appetite fair-no nausea, but just not as hungry as usual. Stools moving. Strength decreased-working with therapy (challenging and tiring, but trying to make gains). No f/c. Objective Vital signs: Temperature 98.4 F 09/14/17 07:27 Pulse Rate 72 09/14/17 08:00 Respiratory Rate 22 09/14/17 11:30 Blood Pressure 156/72 H 09/14/17 07:27 Pulse Oximetry 95 09/14/17 11:30 Height/Weight/BMI: Height 1.63 m Weight 122.5 kg Body Mass Index 45.8 - Constitutional Present: well nourished, well developed - Routine HEENT Exam Head: Present: normocephalic, atraumatic Eye: Present: EOMI, PERRL ENT: Present: mucous membranes moist - Routine Respiratory Exam Present: decreased breath sounds. Absent: rales, respiratory distress, rhonchi , stridor, wheezes, crackles - Routine Cardiovascular Exam Present: RRR, no murmur - Routine Abdominal Exam Present: soft, non distended, non tender. Absent: normoactive bowel sounds ( decreased ) - Routine Extremities Exam Present: cyanosis, clubbing, edema (+2BLE ) - Routine Musculoskeletal Exam Musculoskeletal: Present: no clubbing or cyanosis - Routine Skin Exam Present: warm - Routine Neurological Exam Present: alert, CN II-XII intact, moving all extremities, vision grossly intact , hearing grossly intact, normal speech. Absent: motor deficit, altered mental status - Routine Psychiatric Exam Present: normal affect, normal thought process, cooperative. Absent: anxious, agitated Results - Labs CBC & Chem 7: 09/13/17 04:19 09/14/17 04:13 Assessment and Plan Assessment and Plan: Assessment Acute hypoxic respiratory failure - improving Hypokalemia - not POA - resolved Pneumonia Pulmonary edema/pleural effusion Cellulitis left lateral pannus/buttock hip with mild skin breakdown Essential (primary) hypertension Mixed hyperlipidemia CKD (chronic kidney disease) Stage III Dementia Depression Fibromyalgia Hypothyroid Lumbar spinal stenosis Osteoarthritis Osteoporosis Restless leg syndrome Urinary incontinence; occasional bowel incontinence Morbid Obesity with BMI 46.2 Hypercalcemia-resolved Generalized weakness - PT and OT recommend [facility] at discharge Recurrent vaginal bleeding-the patient needs to follow-up with her insurance coder as an outpatient Echo reveals normal ejection fraction, left ventricular dilation, biatrial dilation, concentric left ventricular hypertrophy, normal PA pressure Plan C diff negative. Respiratory status stable-still needing 2L to maintain saturation, but no respiratory distress. Creatinine stable at 1.8. Working with therapy to help increase her strength. Will discharge to [facility] at [facility]. Cephalexin 500mg orally TID for 10 days for skin coverage, continue Calmoseptine. O2 at 2L - wean as able. Continue Acapella QID. SANJEEV hose to LE, on in am-off at night to help decrease edema. Monitor weight. F/U with Dr Loo in 1 week. Recheck BMP in 1 week secondary to CKD and medication use. Results to Dr Loo. See orders for details. Case discussed with CM. Time spent with patient care and discharger greater than 30 minutes. DVT Prophylaxis: Lovenox Resuscitation Status: Do Not Resuscitate - Time spent with patient Time with patient PN: 30 minutes Hospital Course Summary Disclaimer: The visit summary below is not to be considered part of the above Progress Note. Hospital Course: Assessment Acute hypoxic respiratory failure Pneumonia Pulmonary edema Essential (primary) hypertension Mixed hyperlipidemia CKD (chronic kidney disease) Stage III Dementia Depression Fibromyalgia Hypothyroid Lumbar spinal stenosis Osteoarthritis Osteoporosis Restless leg syndrome Urinary incontinence Morbid Obesity with BMI 46.2 09/08/17 Hospital Admission Admit to inpatient status under the hospitalist service. Length of stay is expected to exceed 2 overnights given her hypoxic state and comorbidities. Lovenox and SCDs for VTE prophylaxis. Continue all home meds with the exception of Lasix as this will be given IV at 40mg q 8 hours. Telemetry and oximetry. O2 to keep sats greater than 90%. Rocephin for pulmonary coverage. Respiratory panel ordered. [place] catheter placement with urinalysis on admission. TSH, magnesium, troponin, repeat BMP and CBC in the a.m. Monitor I and O's and check daily weights. Patient requests DO NOT RESUSCITATE CODE STATUS. Care to be returned to Dr. Loo on dismissal. 09/09/17 Continue with Rocephin for pulmonary coverage of infiltrate - azithromycin given in ED, but patient developed rash. DuoNeb QID, budesonide BID, and Acapella QID to help loosen secretions. Continue with supplemental O2. Viral respiratory panel negative. Decrease Lasix to 40mg IV BID to help decrease pulm edema. Potassium with decrease to 3.8 - will give 20mEq KCl. Check ECHO in am. 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 Serial troponin negative. Start Miralax daily to help with bowel motivation. TSH with slight increase - likely euthyroid sick - continue with home dose. Could repeat in outpatient setting in 3 months. Vitamin B12 pending - normal when checked last, but trending down. Consult PT/OT in am to help increase strength and functional status. Recheck CBC in am due to pneumonia. Recheck BMP/Mg in am due to diuretic use and CKD. 09/10/17 Continue with Rocephin for pulmonary coverage of infiltrate - azithromycin given in ED, but patient developed rash. Repeat CXR today. Significantly decreased BS's to lower half of L lung. Decrease Lasix to 40mg IV qd from BID (home dose is 40mg qd p.o.) given increasing creatinine. Resume home potassium of 10mEq qd. ECHO pending. Continue Miralax daily to help with bowel motivation. Can give MOM and prune juice if needed. Vitamin B12 resulted- normal. PT/OT to eval pt today to help increase strength and functional status. 09/11/17 Overall, patient appears to be doing better. She is requiring 1 L of oxygen now. Continue breathing treatments Continue Rocephin for pneumonia and cellulitis Recheck CBC and basic metabolic profile tomorrow May need to increase Lasix tomorrow. Weight is down to 118 kg down from 121 kg Check chest x-ray in the morning Recommend [facility] at discharge Discussed today with Dr. Martinez who evaluated the patient's cellulitis/ wound. Wound care will continue to monitor. He agrees with antibiotics. Will start Calmoseptine. 09/12/17 Increase Toprol XL from 50 to 100mg daily for better BP control. She had 50mg this am. Will give another 50mg this evening and start 100mg qd tomorrow. Hypokalemic today - she was given one time dose of 40mEq KCl this am. Weight is back up today. CXR shows increasing left effusion and worsening JOANNA consolidation. Give an extra 40mg IV Lasix and 20mEq KCl now. Continue daily Lasix 40mg IV q am and increase daily KCl from 10 to 20mEq tomorrow. Continue Rocephin. Clinically patient is improving and WBC remains normal, would not add additional atbx coverage at this time. Repeat CBC and BMP in am to follow WBC and renal function/electrolytes. Wound care is monitoring area on L trunk/hip. Continue Calmoseptine. Continue DuoNeb and acapella tx. Add Mucinex for mucolytic. 09/13/17 Continue Rocephin for pneumonia and for skin coverage. Dr. Martinez recommends applying Calmoseptine and keeping the skin dry. Increased subjective SOA but oxygen requirements have decreased to 2L. BP still quite elevated despite increasing Toprol XL to 100 mg She continues on both IV and PO Lasix - will discuss further with attending. K has improved. Weight down slightly from yesterday. Loose stools (3 yesterday, 1 today), some documented as liquid in nature - check C. diff. Monitor electrolytes with stool output. 09/14/17 C diff negative. Respiratory status stable-still needing 2L to maintain saturation, but no respiratory distress. Creatinine stable at 1.8. Working with therapy to help increase her strength. Will discharge to [facility] at [facility]. Cephalexin 500mg orally TID for 10 days for skin coverage, continue Calmoseptine. O2 at 2L - wean as able. Continue Acapella QID. SANJEEV hose to LE, on in am-off at night to help decrease edema. Monitor weight. F/U with Dr Loo in 1 week. Recheck BMP in 1 week secondary to CKD and medication use. Results to Dr Loo. See orders for details.
--- NOTE | 2017-09-14 14:08 | Discharge Summary ---
Discharge Information Date of admission: 09/08/17 17:26 Anticipated date of discharge: 09/14/17 Attending Physician: Dr Lechuga Primary care physician: Dr Loo Consults: Physician Consult: Kam Martinez Reason For Exam: wound with edema on left hip Discharge diagnosis Acute hypoxic respiratory failure - improving Associated conditions and complications Pneumonia Pulmonary edema/pleural effusion Cellulitis left lateral pannus/buttock hip with mild skin breakdown Essential (primary) hypertension Mixed hyperlipidemia CKD (chronic kidney disease) Stage III Hypokalemia - not POA - resolved Dementia Depression Fibromyalgia Hypothyroid Lumbar spinal stenosis Osteoarthritis Osteoporosis Restless leg syndrome Urinary incontinence; occasional bowel incontinence Morbid Obesity with BMI 46.2 Hypercalcemia-resolved Generalized weakness - PT and OT recommend jail at discharge Recurrent vaginal bleeding-the patient needs to follow-up with her maintenance shop clerk as an outpatient Echo reveals normal ejection fraction, left ventricular dilation, biatrial dilation, concentric left ventricular hypertrophy, normal PA pressure - Procedures Procedures: Date of Exam: 09/10/17 Type of Exam: US ECHO Doppler complete This is a two-dimensional echo with spectral Doppler, color-flow and M-mode. It was obtained in a patient with dyspnea. This was a technically difficult study. Left atrial measurement was not obtained. However, it appears to be dilated. Left ventricular end-diastolic dimension is increased. Left ventricular wall thickness increased. LV systolic function appears to be normal with ejection fraction of about 55%. Right atrium appears to be dilated. Right ventricle is normal. Aortic root dimension is normal. Mitral valve appears to be normal with trace of mitral regurgitation. Aortic valve was not visualized well. However, Doppler studies indicate no stenosis or insufficiency. Tricuspid valve shows mild tricuspid regurgitation with normal estimated pulmonary artery systolic pressure of 30. Pulmonary valve was not visualized. There is no pericardial effusion. Pleural effusion is present. IMPRESSION 1. Technically difficult study. 2. Left ventricular dilation. 3. Biatrial dilation. 4. Concentric left ventricular hypertrophy. 5. Pleural effusion. 6. Normal LV systolic function with ejection fraction of 55%. 7. Trace of mitral regurgitation. 8. Mild tricuspid regurgitation with normal estimated pulmonary artery systolic pressure of 30. - Laboratory Labs: Admit Lab 09/08/17 15:21 WBC 7.6 Hgb 15.2 Hct 48.1 H MCV 92.0 Plt Count 143 Neut % (Auto) 66.9 H Lymph % (Auto) 17.7 L [place] % (Auto) 8.7 Eos % (Auto) 5.1 H Baso % (Auto) 0.4 Admit Lab 09/08/17 15:21 Sodium 143 Potassium 4.8 Chloride 99 Carbon Dioxide 31 H Anion Gap 13 BUN 28.0 H Creatinine 1.6 H GFR Calculation 31 BUN/Creatinine Ratio 18 Glucose 90 Calculated Osmolality 281 H Calcium 11.4 H Total Bilirubin 0.90 AST 29 ALT 32 Alkaline Phosphatase 108 Troponin I < 0.012 B-Natriuretic Peptide 1720 H Total Protein 7.1 Albumin 4.3 Globulin 2.8 Albumin/Globulin Ratio 1.5 Plasma Lactate 1.0 Laboratory Tests 09/09/17 09/09/17 04:22 04:22 Vitamin B12 468 TSH 4.83 H 09/13/17 04:19 09/14/17 04:13 - Radiology Radiology: Date of Exam: 09/08/17 PROCEDURE: CHEST 2-VIEWS UPRIGHT (PA & LAT) FINDINGS: Hazy airspace disease in the left lower lobe with a small left effusion. Right lung is grossly clear. No pneumothorax. Heart size and mediastinal contours are grossly stable allowing for differences in rotation. Pulmonary vascularity is minimally prominent. Impression: Left lower lobe pneumonia or aspiration. History of Present Illness HPI: Patient is a 77-year-old female who presents to the ER with increasing shortness of breath, cough for 3 days and progressive weakness. Her daughter has had cold symptoms for the last 5 days and patient has developed similar symptoms 3 days ago. She has not run fever. She has had hot and cold chills last night. States her cough is nonproductive. She is usually not on oxygen at home. For complete details of the H&P refer to that document. Objective Vital signs: Temperature 98.4 F 09/14/17 07:27 Pulse Rate 72 09/14/17 08:00 Respiratory Rate 22 09/14/17 11:30 Blood Pressure 156/72 H 09/14/17 07:27 Pulse Oximetry 95 09/14/17 11:30 Height/Weight/BMI: Height 1.63 m Weight 122.5 kg Body Mass Index 45.8 Hospital Course This is a general summary of the patient's hospital course. For more details refer to the complete medical record. Hospital course: Assessment Acute hypoxic respiratory failure Pneumonia Pulmonary edema Essential (primary) hypertension Mixed hyperlipidemia CKD (chronic kidney disease) Stage III Dementia Depression Fibromyalgia Hypothyroid Lumbar spinal stenosis Osteoarthritis Osteoporosis Restless leg syndrome Urinary incontinence Morbid Obesity with BMI 46.2 09/08/17 Hospital Admission Admit to inpatient status under the hospitalist service. Length of stay is expected to exceed 2 overnights given her hypoxic state and comorbidities. Lovenox and SCDs for VTE prophylaxis. Continue all home meds with the exception of Lasix as this will be given IV at 40mg q 8 hours. Telemetry and oximetry. O2 to keep sats greater than 90%. Rocephin for pulmonary coverage. Respiratory panel ordered. [place] catheter placement with urinalysis on admission. TSH, magnesium, troponin, repeat BMP and CBC in the a.m. Monitor I and O's and check daily weights. Patient requests DO NOT RESUSCITATE CODE STATUS. Care to be returned to Dr. Loo on dismissal. 09/09/17 Continue with Rocephin for pulmonary coverage of infiltrate - azithromycin given in ED, but patient developed rash. DuoNeb QID, budesonide BID, and Acapella QID to help loosen secretions. Continue with supplemental O2. Viral respiratory panel negative. Decrease Lasix to 40mg IV BID to help decrease pulm edema. Potassium with decrease to 3.8 - will give 20mEq KCl. Check ECHO in am. 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 Serial troponin negative. Start Miralax daily to help with bowel motivation. TSH with slight increase - likely euthyroid sick - continue with home dose. Could repeat in outpatient setting in 3 months. Vitamin B12 pending - normal when checked last, but trending down. Consult PT/OT in am to help increase strength and functional status. Recheck CBC in am due to pneumonia. Recheck BMP/Mg in am due to diuretic use and CKD. 09/10/17 Continue with Rocephin for pulmonary coverage of infiltrate - azithromycin given in ED, but patient developed rash. Repeat CXR today. Significantly decreased BS's to lower half of L lung. Decrease Lasix to 40mg IV qd from BID (home dose is 40mg qd p.o.) given increasing creatinine. Resume home potassium of 10mEq qd. ECHO pending. Continue Miralax daily to help with bowel motivation. Can give MOM and prune juice if needed. Vitamin B12 resulted- normal. PT/OT to eval pt today to help increase strength and functional status. 09/11/17 Overall, patient appears to be doing better. She is requiring 1 L of oxygen now. Continue breathing treatments Continue Rocephin for pneumonia and cellulitis Recheck CBC and basic metabolic profile tomorrow May need to increase Lasix tomorrow. Weight is down to 118 kg down from 121 kg Check chest x-ray in the morning Recommend jail at discharge Discussed today with Dr. Martinez who evaluated the patient's cellulitis/ wound. Wound care will continue to monitor. He agrees with antibiotics. Will start Calmoseptine. 09/12/17 Increase Toprol XL from 50 to 100mg daily for better BP control. She had 50mg this am. Will give another 50mg this evening and start 100mg qd tomorrow. Hypokalemic today - she was given one time dose of 40mEq KCl this am. Weight is back up today. CXR shows increasing left effusion and worsening JOANNA consolidation. Give an extra 40mg IV Lasix and 20mEq KCl now. Continue daily Lasix 40mg IV q am and increase daily KCl from 10 to 20mEq tomorrow. Continue Rocephin. Clinically patient is improving and WBC remains normal, would not add additional atbx coverage at this time. Repeat CBC and BMP in am to follow WBC and renal function/electrolytes. Wound care is monitoring area on L trunk/hip. Continue Calmoseptine. Continue DuoNeb and acapella tx. Add Mucinex for mucolytic. 09/13/17 Continue Rocephin for pneumonia and for skin coverage. Dr. Martinez recommends applying Calmoseptine and keeping the skin dry. Increased subjective SOA but oxygen requirements have decreased to 2L. BP still quite elevated despite increasing Toprol XL to 100 mg She continues on both IV and PO Lasix - will discuss further with attending. K has improved. Weight down slightly from yesterday. Loose stools (3 yesterday, 1 today), some documented as liquid in nature - check C. diff. Monitor electrolytes with stool output. 09/14/17 C diff negative. Respiratory status stable-still needing 2L to maintain saturation, but no respiratory distress. Creatinine stable at 1.8. Working with therapy to help increase her strength. Will discharge to jail [facility]. Cephalexin 500mg orally TID for 10 days for skin coverage, continue Calmoseptine. O2 at 2L - wean as able. Continue Acapella QID. SANJEEV hose to LE, on in am-off at night to help decrease edema. Monitor weight. Toprol increased during hospitalization to help blood pressure control. F/U with Dr Loo in 1 week. Recheck BMP in 1 week secondary to CKD and medication use. Results to Dr Loo. TSH slightly elevated - no change in thyroid medication made. Would recommend rechecking TSH in 6-8 weeks. See orders for details. Time spent with patient: discharge greater than 30 minutes DVT Prophylaxis: Lovenox Discharge Plan - Discharge Disposition Discharge Date: 09/14/17 Disposition: 03 To SNU Not [facility] (SNF) *Condition: Stable Reason For Visit (Visit label in EMR): acute respiratory insufficiency, hypoxia , pulmonar - Discharge Medications *Discharge Medications: New Albuterol/Ipratropium [Duoneb] 3 ml AEROSOL RTQID neb Budesonide Inhalation [Pulmicort Inhalation] 0.5 mg AEROSOL RTBID vial Calmoseptine [Risamine Oint] 1 applicatio TP DAILY tube Donepezil [Aricept] 10 mg PO HS tab Metoprolol Succinate (XL) [Toprol Xl] 100 mg PO DAILY #30 tab PEG 3350 17gm PACKET [Miralax] 17 gm PO DAILY PRN packet PRN Reason: Constipation Potassium Chloride [Micro-K] 20 meq PO WB cap Tramadol [Ultram] 50 mg PO Q6HR PRN #30 tab PRN Reason: Pain cephALEXin [Cephalexin] 500 mg PO TID #30 tab Guaifenesin LA [Mucinex LA] 600 mg PO BID #20 tab Nystatin Powder [Mycostatin] 1 applicatio TP TID bottle Sodium Chloride [Deep Sea] 2 spray EA NOSTRIL QID spray Furosemide [Lasix] 40 mg PO DAILY #30 tab Continue Multivitamin,Therapeutic [Oncovite] 1 tab PO DAILY #0 Duloxetine [Cymbalta] 60 mg PO HS #0 cap Isosorbide Mononitrate ER [Imdur] 30 mg PO QAM Cholecalciferol (Vitamin D3) [Vitamin D3] 5,000 cap PO WEEKLY Acetaminophen [Acetaminophen Extra Strength] 1,000 mg PO Q6HR PRN PRN Reason: Pain LORazepam [Lorazepam] 1 mg PO HS PRN #30 tab PRN Reason: anxiety Tramadol HCl [Ultram] 50 mg PO BID #60 tab Atorvastatin Calcium [Lipitor] 20 mg PO HS #0 Aspirin [Aspir-Low] 1 tab PO DAILY #0 Cetirizine HCl 10 mg PO DAILY PRN PRN Reason: Allergy Symptoms Quetiapine [SEROquel] 200 mg PO HS Clopidogrel [Plavix] 75 mg PO DAILY #30 tab Pantoprazole Sodium [Protonix] 40 mg PO ACB Pregabalin Cap [Lyrica] 75 mg PO BID Nitrostat (nitroglycerin) 0.4 mg sublingual tablet 0.4 mg SL PRN PRN 10 Days #25 PRN Reason: Chest Pain levothyroxine 200 mcg tablet 200 mcg PO DAILY #90 tab Zyloprim (Allopurinol) 300 mg tablet 300 mg PO DAILY #90 tab Norvasc (amlodipine) 5 mg tablet 5 mg PO BID #180 tab Discontinued Potassium Chloride [Klor-Con 10] 10 meq PO . Naproxen [Aleve] 220 mg PO DAILY Namzaric (memantine ER) 7 mg-donepezil 10 mg capsule sprinkle, 24 hour 1 cap PO Q24H Lasix (Furosemide) 40 mg tablet 40 mg PO . tab Toprol XL (metoprolol succinate ER) 50 mg tablet, 24 hr 50 mg PO DAILY #30 tab - Discharge Packet/Instructions *Diet: No added salt *Activity: As tolerated. Up with assistance *Pain Management/Treatment: Tramadol and tylenol as needed. *Wound Care: Calmaseptine to area on left thigh daily. *Expected Signs/Symptoms: Improvement of strenght and functional status. Improvement of breathing. *Notify Physician if: Temp >100.4. Worsening breathing. *During Business Hours Contact: Nursing staff at . *After Business Hours Contact: Nursing staff at . *Pending Lab/Results: No Pending Lab - Referrals/Follow Up *Referrals/Follow Up: Dimitri Loo DO [Physician] - 1 Week (Hospital follow up for pneumonia. On skilled at . ) - Patient Handouts Patient Handouts: Hypoxia (GEN) - Dismissal Complete Discharge Instructions are:: Complete Attestation Narriative - Attestation Attestation Narrative: 09/14/17 14:14 I have independently interviewed and examined patient prior to discharge. See my progress not from today for details. Medically stable for discharge to jail.
--- NOTE | 2017-09-14 14:27 | Extended Care Facility Orders ---
Admission Orders Admit to:: Detention Allergies/Adverse Reactions: Allergies azithromycin Allergy (Intermediate, Verified 09/08/17 18:15) Rash Iodine and Iodide Containing Produc Allergy (Unknown, Verified 06/04/17 13:37) ITCHING Admitting Diagnosis: Acute respiratory insufficiency, hypoxia Admitting Physician: Dr Lechuga Attending Physician: Dr Loo Code Status: Do Not Resuscitate Anticiapted Length of Stay: 30 days or less Rehab Potential: fair Rehab Prognosis: fair Diet: No added salt Wound/Incision Care: Calmoseptine to area of left hip once a day. Evaluations/Treatment: PT, OT, as needed Detention Certification: I certify that SNF services are required to be given on an Inpatient basis because of the patients need for half-way care on a continuing basis for the condition(s) for which he/she received inpatient hospital services prior to his/her transfer to the SNF. SNF inpatient care is necessary for the following reasons Indication for Detention: Med Admininistration, Teach Medication Management, Teach CHF, Other (Skilled PT/OT to maximize functional status. prison to monitor respiratory status. ) - Additional Information In Event of Arrest: Do Not Start CPR Resident is Aware of Diagnosis: Yes Referrals: Dimitri Loo DO [Physician] - 1 Week (Hospital follow up for pneumonia. On skilled at [facility]. ) Additional Orders: BMP in 1 week: Dx: Stage III CKD, Medication use. F/U with Dr Loo in 1 week. O2 - 2L per NC, wean as able. Use Acapella 4 times a day. SANJEEV hose, on in am/off at night. To help decrease LE edema.
[2017-09-14 15:04] VITALS: RESP 18; O2SAT 93
== END 2017-09-14 16:10 | DRG 193 ==
LOC: ED 14:56 → MED 17:26 → SUATTDRO 17:26 → MED 18:17
PROVIDERS: ADMIT Hospitalist; ATTEND Internal Medicine

== ENCOUNTER 2017-10-01 19:58 | Inpatient (IN) ==
--- OUTSIDE RECORDS SUMMARY | 2017-10-01 20:18 | External Medical Summary | Continuity of Care Document ---
:1940 Author Organization [facility] Allergies Active Description Code Type Severity Reaction Onset Reported/ Identified Relationship Clinical to Patient Status Yes IODINE 3150 1 N/A itching and burning Yes No Known 17773 3 N/A N/A Drug 0 Allergies Medications There is no data. 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 Encounters ACCT Visit Discharge Status Pt. Type Provider Facility Loc./Unit Complaint No. Date/Time [id number] 12/20/2016 12/20/2016 CLS Outpatient [place], [place] 14:30:00 23:59:59 K [id number] 12/07/2016 12/07/2016 [facility] [place], [place] 11:27:00 23:59:59 K [id number] 01/03/2016 01/03/2016 CLS Outpatient Katie, 08:56:00 23:59:59 So Marquez [id number] 12/30/2015 12/30/2015 CLS Out[place], [place] 09:31:00 23:59:59 K [id number] 12/15/2015 12/15/2015 CLS Outpatient [place], [place] 13:00:00 23:59:59 K [id number] 12/08/2015 12/08/2015 CLS Outpatient Sergio, 14:30:00 23:59:59 Denise Hoang [id number] 11/23/2015 11/23/2015 CLS Outpatient Rishabh, 09:29:00 23:59:59 Barry Hurtado [id number] 11/23/2015 11/23/2015 CLS Outpatient [place], [place] 08:00:00 23:59:59 Aurelia [id number] 11/22/2015 11/22/2015 CLS Outpatient Rishabh, 13:00:00 23:59:59 Barry Hurtado [id number] 11/11/2015 11/11/2015 CLS Outpatient Troy, 09:18:00 23:59:59 Zahraa Landry [id number] 03/02/2008 Document 15:11:00 Registratio n
--- NOTE | 2017-10-01 20:27 | Emergency Department Report ---
Asthma HPI - General Stated Complaint: increased pleural fluid, tracking into L lung Time Seen by Provider: 10/01/17 20:09 Source: patient Mode of arrival: ambulatory Limitations: no limitations - History of Present Illness HPI Narrative: She presents to Er today from [place]. She has had an increased cough and increased SOA over the last few days. Did have a chest xray today that did show she may have a pneumonia. [place] [facility] [place] for [place]. Was dismissed on 2L O2 per [place]. They have had to increased her home O2 some. Today with movement from the WC to the bed she did have sats drop to 79% on 3L per NC. Has had some increased nausea associated with her coughing at home. Had a low grade temp a few days ago. Severity: moderate Context: none known Associated symptoms: none - Related Data Current Asthma Therapy: none Home Medications Medication Instructions Recorded Confirmed Cetirizine HCl 10 mg PO DAILY PRN 04/02/17 10/01/17 Cholecalciferol (Vitamin D3) 5,000 cap PO WEEKLY 04/02/17 10/01/17 [Vitamin D3] Isosorbide Mononitrate ER [Imdur] 30 mg PO QAM 04/02/17 10/01/17 Quetiapine [SEROquel] 200 mg PO HS 04/02/17 10/01/17 Acetaminophen [Acetaminophen Extra 1,000 mg PO Q6HR PRN 09/08/17 10/01/17 Strength] Pantoprazole Sodium [Protonix] 40 mg PO ACB 09/08/17 10/01/17 Allopurinol [Zyloprim] 300 mg PO DAILY 10/01/17 10/01/17 Amlodipine [Norvasc] 5 mg PO BID 10/01/17 10/01/17 Aspirin [Low Dose Aspirin EC] 81 mg PO DAILY 10/01/17 10/01/17 Atorvastatin Calcium [Atorvastatin 20 mg PO HS 10/01/17 10/01/17 Calcium] Duloxetine [Cymbalta] 60 mg PO HS 10/01/17 10/01/17 Levothyroxine Sodium 200 mcg PO DAILY 10/01/17 10/01/17 [Levothyroxine Sodium] Multivitamin [One Daily] 1 tab PO DAILY 10/01/17 10/01/17 Nitroglycerin [Nitrostat] 0.4 mg SL Q5MIN3 PRN 10/01/17 10/01/17 Potassium Chloride [Micro-K] 30 meq PO WB 10/01/17 10/01/17 Pregabalin Cap [Lyrica] 75 mg PO BID 10/01/17 10/01/17 Sodium Chloride [Deep Sea] 1 spray EA NOSTRIL QID 10/01/17 10/01/17 Previous Rx's Medication Instructions Recorded Clopidogrel [Plavix] 75 mg PO DAILY #30 tab 04/03/17 Albuterol/Ipratropium [Duoneb] 3 ml AEROSOL RTQID each 09/14/17 Budesonide Inhalation [Pulmicort 0.5 mg AEROSOL RTBID vial 09/14/17 Inhalation] Calmoseptine [Risamine Oint] 1 applicatio TP DAILY tube 09/14/17 Donepezil [Aricept] 10 mg PO HS tab 09/14/17 Guaifenesin LA [Mucinex LA] 600 mg PO BID #20 tab 09/14/17 LORazepam [Lorazepam] 1 mg PO HS PRN #30 tab 09/14/17 Metoprolol Succinate (XL) [Toprol 100 mg PO DAILY #30 tab 09/14/17 Xl] Nystatin Powder [Mycostatin] 1 applicatio TP TID bottle 09/14/17 PEG 3350 17gm PACKET [Miralax] 17 gm PO DAILY PRN packet 09/14/17 Tramadol HCl [Ultram] 50 mg PO BID #60 tab 09/14/17 Tramadol [Ultram] 50 mg PO Q6HR PRN #30 tab 09/14/17 Allergies Allergy/AdvReac Type Severity Reaction Status Date / Time azithromycin Allergy Intermediate Rash Verified 10/01/17 20:29 Iodine and Iodide Containing Allergy Unknown ITCHING Verified 10/01/17 20:29 Produc Review of Systems Constitutional: Reports: fever (low grade). Denies: chills, weakness ENT: Denies: ear pain, throat pain, congestion Cardiovascular: Denies: chest pain, palpitations, dyspnea on exertion, edema Respiratory: Reports: cough, dyspnea. Denies: wheezes Gastrointestinal: Reports: nausea. Denies: abdominal pain, vomiting, diarrhea Integumentary: Denies: rash Neurological: Denies: headache, weakness, numbness, paresthesias PFSH Patient Stated Medical History Dementia Yes Migraine Yes Cataracts Yes Dental Problems Yes: TEETH REMOVED Dysphagia Yes Glaucoma Yes Macular Degeneration Yes Other HEENT Yes: wears glasses Angina Yes Hypertension Yes Pneumonia Yes Sleep Apnea Yes: INCONCLUSIVE Gastroesophageal Reflux Yes Disease Other GI Yes: HEMRRHOIDS. Hx Incontinence Yes: previous Anemia Yes Osteoarthritis Yes Other Musculoskeletal Yes: FIBROMYALGIA Shingles Yes Depression Yes Clinic Medical History CKD (chronic kidney disease) (Acute Medical) Dementia (Acute Medical) Depression (Acute Medical) Dyslipidemia (Acute Medical) Family history of CVA (Acute Medical) Fibromyalgia (Acute Medical) HTN (hypertension) (Acute Medical) Hypothyroid (Acute Medical) Lumbar spinal stenosis (Acute Medical) Osteoarthritis (Acute Medical) Osteoporosis (Acute Medical) Restless leg syndrome (Acute Medical) Urinary incontinence (Acute Medical) Surgical History: cholecystectomy, thyroid surgery 2, cardiac stent 1 (April 2017-Dr. Botello) - Social History Smoking status: Never smoker Substance use type: does not use Alcohol intake frequency: does not drink Current residence: Apartment/Private Home Physical Exam - Limitations Limitations: no limitations - General General appearance: alert, in no apparent distress - Normal Exams: Neck:: Full range of motion, without adenopathy, JVD, bruits or thyromegaly Chest/Respirations:: Clear all welch, with good airflow, and symmetry bilaterally Cardiovascular:: Regular rate and rhythm, without murmur or gallop, Pulses 2+ all extremities, capillary refill, <2 seconds all extremities Abdomen:: Bowel sounds positive, soft, non-tender, non-distended, no hepatosplenomegaly, masses or bruits noted Lymphatic:: No lymphadenopathy, or lymphedema noted Integumentary:: No rashes, hives, or bruising noted Neurological:: Patient is alert, and oriented Psychiatric:: Patient exhibits, appropriate attention, emotion and affect Course Vital Signs Temperature 98.0 F 10/01/17 20:03 Pulse Rate 81 10/01/17 20:03 Respiratory Rate 42 H 10/01/17 20:03 Blood Pressure 142/96 H 10/01/17 20:03 Pulse Oximetry 76 L 10/01/17 20:03 Temperature 98.0 F 10/01/17 20:03 Pulse Rate 75 10/01/17 21:30 Respiratory Rate 27 H 10/01/17 21:30 Blood Pressure 188/88 H 10/01/17 21:30 Pulse Oximetry 95 10/01/17 21:30 Dyspnea - MDM Narrative Medical decision making narrative: Ct scan does show large effusion on the left with atelectasis vs pneumonia. WBC is normal without left shift. There is extensive lymphadenopathy. Given her increased O2 demand, requiring 6L per NC to maintain at 92%, and the finding that may be a new diagnosis of cancer, discussed with Dr Fraser and he will accept for admission at this time for further workup. - Differential Diagnosis Differential diagnosis: Likely: Pneumonia, COPD exacerbation, Pulmonary edema systolic, Pulmonary edema dystolic, Pneumothorax - Lab Data Attestation: I reviewed the patient's lab results. Result diagrams: 10/01/17 20:30 10/01/17 20:30 Lab Results 10/01/17 10/01/17 10/01/17 Range/Units 20:30 20:30 20:30 WBC 5.1 (4.5-11.0) T/MM3 RBC 4.82 (4.00-5.20) M/MM3 Hgb 14.0 (12-16) GM/DL Hct 44.5 (36-46) % MCV 92.3 (80-100) UM3 MCH 29.0 (26-34) UUG MCHC 31.5 (31-37) GM/DL RDW Std Deviation 48.0 (36.9-50.2) FL Plt Count 161 (130-400) T/MM3 MPV 10.3 (9.4-12.4) UM3 Immature Gran % (Auto) 1.4 H (0.0-0.5) % Neut % (Auto) 55.1 (33-66) % Lymph % (Auto) 22.9 L (23-45) % Pacific % (Auto) 10.4 H (0-9.0) % Eos % (Auto) 9.4 H (0-4) % Baso % (Auto) 0.8 (0-2) % Neut # (Auto) 2.8 (1.8-7.7) T/MM3 Lymph # (Auto) 1.2 (1-4.8) T/MM3 Pacific # (Auto) 0.5 (0-0.8) T/MM3 Eos # (Auto) 0.5 (0-0.5) T/MM3 Baso # (Auto) 0.0 (0-0.2) T/MM3 Abs Immat Gran (auto) 0.07 H (0.00-0.03) T/MM3 Turbidity < 20 (0-20) Sodium 145 H (134-144) MEQ/L Potassium 4.9 (3.6-5) MEQ/L Chloride 105 (98-107) MEQ/L Carbon Dioxide 30 (22-30) MEQ/L Anion Gap 10 (5-15) MEQ/L BUN 29.0 H (7-17) MG/DL Creatinine 1.9 H (0.7-1.2) MG/DL GFR Calculation 26 BUN/Creatinine Ratio 15 (6-26) RATIO Glucose 91 (65-110) MG/DL Calculated Osmolality 285 H (261-280) MOSM/KG Calcium 12.2 H (8.4-10.2) MG/DL Total Bilirubin 0.90 (0.20-1.30) MG/DL Icterus Index < 2 (0-7) AST 46 H (14-36) U/L ALT 32 (9-52) U/L Alkaline Phosphatase 90 (38-126) U/L Troponin I < 0.012 (0-0.12) ng/ml B-Natriuretic Peptide (0-175) pg/mL Total Protein 7.1 (6.3-8.2) G/DL Albumin 4.1 (3.5-5.0) G/DL Globulin 3.0 (2.4-3.6) G/DL Albumin/Globulin Ratio 1.4 (1.1-2.2) RATIO Plasma Lactate 1.9 (0.6-2.2) MMOL/L Procalcitonin 0.10 NG/ML Specimen Hemolysis 85 H (0-25) Ur Collection Type Urine Color (YELLOW) Urine Clarity Urine pH (5.0-8.0) Ur Specific [place] (1.015-1.025) Urine Protein (NEGATIVE) Urine Glucose (UA) (NEGATIVE) Urine Ketones (NEGATIVE) Urine Occult Blood (NEGATIVE) Urine Nitrate (NEGATIVE) Urine Bilirubin (NEGATIVE) Urine Urobilinogen (NORMAL) EU/DL Ur Leukocyte Esterase (NEGATIVE) Urine RBC (0-3) /HPF Urine WBC (0-5) /HPF Calcium Oxalate Crystal Urine Bacteria (NEGATIVE) Ur Culture Indicated? 10/01/17 10/01/17 Range/Units 20:30 20:56 WBC (4.5-11.0) T/MM3 RBC (4.00-5.20) M/MM3 Hgb (12-16) GM/DL Hct (36-46) % MCV (80-100) UM3 MCH (26-34) UUG MCHC (31-37) GM/DL RDW Std Deviation (36.9-50.2) FL Plt Count (130-400) T/MM3 MPV (9.4-12.4) UM3 Immature Gran % (Auto) (0.0-0.5) % Neut % (Auto) (33-66) % Lymph % (Auto) (23-45) % Pacific % (Auto) (0-9.0) % Eos % (Auto) (0-4) % Baso % (Auto) (0-2) % Neut # (Auto) (1.8-7.7) T/MM3 Lymph # (Auto) (1-4.8) T/MM3 Pacific # (Auto) (0-0.8) T/MM3 Eos # (Auto) (0-0.5) T/MM3 Baso # (Auto) (0-0.2) T/MM3 Abs Immat Gran (auto) (0.00-0.03) T/MM3 Turbidity (0-20) Sodium (134-144) MEQ/L Potassium (3.6-5) MEQ/L Chloride (98-107) MEQ/L Carbon Dioxide (22-30) MEQ/L Anion Gap (5-15) MEQ/L BUN (7-17) MG/DL Creatinine (0.7-1.2) MG/DL GFR Calculation BUN/Creatinine Ratio (6-26) RATIO Glucose (65-110) MG/DL Calculated Osmolality (261-280) MOSM/KG Calcium (8.4-10.2) MG/DL Total Bilirubin (0.20-1.30) MG/DL Icterus Index (0-7) AST (14-36) U/L ALT (9-52) U/L Alkaline Phosphatase (38-126) U/L Troponin I (0-0.12) ng/ml B-Natriuretic Peptide 1320 H (0-175) pg/mL Total Protein (6.3-8.2) G/DL Albumin (3.5-5.0) G/DL Globulin (2.4-3.6) G/DL Albumin/Globulin Ratio (1.1-2.2) RATIO Plasma Lactate (0.6-2.2) MMOL/L Procalcitonin NG/ML Specimen Hemolysis (0-25) Ur Collection Type Urine, clean catch Urine Color Yellow (YELLOW) Urine Clarity Sl cloudy Urine pH 5.5 (5.0-8.0) Ur Specific [place] 1.025 (1.015-1.025) Urine Protein 1+ A (NEGATIVE) Urine Glucose (UA) Negative (NEGATIVE) Urine Ketones Negative (NEGATIVE) Urine Occult Blood 3+ A (NEGATIVE) Urine Nitrate Negative (NEGATIVE) Urine Bilirubin Negative (NEGATIVE) Urine Urobilinogen 0.2 (NORMAL) EU/DL Ur Leukocyte Esterase 1+ A (NEGATIVE) Urine RBC 50-200 H (0-3) /HPF Urine WBC 50-200 H (0-5) /HPF Calcium Oxalate Crystal Few Urine Bacteria 2+ H (NEGATIVE) Ur Culture Indicated? Cult reflexed &setup - Radiology Data Attestation: I reviewed the patient's radiology results. CT of chest without contrast: Large left pleural effusion with adjacent compressive atelectasis or pneumonia. Underlying mass lesions cannot be excluded. There is extensive supraclavicular, mediastinal, perihilar, and axillary lymphadenopathy. There is increased density in the left breast soft tissues in relation to the right. Please correlate with mammography findings. Disposition Clinical Impression: Pleural effusion on left Disposition: 02 [place] [facility] [place] Care Condition: Stable Time of Disposition: 22:19 - Seen By: midlevel
[2017-10-01] MEDS: SALINE FLUSH 10ml SYRINGE IVF PRN (20:28)
[2017-10-01] MEDS ORDERED: SENNA + DOCUSATE TABLET PO PRN (22:39)
[2017-10-01] MEDS ORDERED: LORazepam 1 MG TABLET PO PRN (22:39)
[2017-10-01] MEDS ORDERED: NITROGLYCERIN 0.4 MG SUBLINGUAL TABLET SL PRN (22:39)
[2017-10-01] MEDS ORDERED: ACETAMINOPHEN 325 MG TABLET PO PRN (22:39)
[2017-10-01] MEDS ORDERED: POLYETHYL GLYCOL 3350 17gm PACKET PO PRN (22:39)
[2017-10-01 23:27] VITALS: BMI 46.3
[2017-10-01] MEDS ORDERED: FALL RISK - PHARMACY CONSULT XX ONE (23:29)
[2017-10-01] MEDS: NS 1,000 ML IV SCH (23:38)
[2017-10-02] MEDS: HYDROCODONE/APAP 7.5 MG/325 MG TABLET PO PRN ×2 (00:12→14:59)
--- NOTE | 2017-10-02 00:22 | History & Physical Report ---
History of Present Illness Date: 10/02/17 Chief complaint: SOB/ dyspnea HPI: The pt has moderate to severe dementia and was not able to answer most of my questions. It was reported that the pt was living at [facility] and c/o SOB & dsypnea today. The staff brought her eto the ER for evaluation. She currently denies any productive cough, fevers, chills, but does c/o SOB when using her walker ambulating just short distances. The symptoms have bee gradually getting worse since being discharged in May 2017 when she was admitted for dyspnea thought to be due to pneumonia. Review of Systems All systems PM: 10-point ROS was reviewed, no additional remarkable complaints except - Constitutional Constitutional: Absent: chills, fever(s), headache(s) - EENMT Mouth/Throat: Absent: sore throat - Cardiovascular Cardiovascular: Absent: chest pain - Respiratory Respiratory: Present: dyspnea, chest congestion. Absent: cough, hemoptysis, wheezing, pain on inspiration - Gastrointestinal Gastrointestinal: Present: change in bowel habits, diarrhea. Absent: abdominal pain, early satiety - Neurological Neurological: Present: confusion, dizziness. Absent: abnormal gait PFSH Patient Stated Medical History Dementia Yes Migraine Yes Cataracts Yes Dental Problems Yes: TEETH REMOVED Dysphagia Yes Glaucoma Yes Macular Degeneration Yes Other HEENT Yes: wears glasses Angina Yes Hypertension Yes Pneumonia Yes Sleep Apnea Yes: INCONCLUSIVE Gastroesophageal Reflux Yes Disease Other GI Yes: HEMRRHOIDS. Hx Incontinence Yes: previous Anemia Yes Osteoarthritis Yes Other Musculoskeletal Yes: FIBROMYALGIA Shingles Yes Depression Yes Clinic Medical History CKD (chronic kidney disease) (Acute Medical) Dementia (Acute Medical) Depression (Acute Medical) Dyslipidemia (Acute Medical) Family history of CVA (Acute Medical) Fibromyalgia (Acute Medical) HTN (hypertension) (Acute Medical) Hypothyroid (Acute Medical) Lumbar spinal stenosis (Acute Medical) Osteoarthritis (Acute Medical) Osteoporosis (Acute Medical) Restless leg syndrome (Acute Medical) Urinary incontinence (Acute Medical) Surgical History: cholecystectomy, thyroid surgery 2, cardiac stent 1 (April 2017-Dr. Botello) - Social History Smoking status: Never smoker Housing: long-term Household members: none Current occupational status: retired Medications Home Medications Medication Instructions Recorded Confirmed Type Cetirizine HCl 10 mg PO DAILY PRN 04/02/17 10/01/17 History Cholecalciferol (Vitamin D3) 5,000 cap PO WEEKLY 04/02/17 10/01/17 History [Vitamin D3] Isosorbide Mononitrate ER [Imdur] 30 mg PO QAM 04/02/17 10/01/17 History Quetiapine [SEROquel] 200 mg PO HS 04/02/17 10/01/17 History Acetaminophen [Acetaminophen Extra 1,000 mg PO Q6HR PRN 09/08/17 10/01/17 History Strength] Pantoprazole Sodium [Protonix] 40 mg PO ACB 09/08/17 10/01/17 History Allopurinol [Zyloprim] 300 mg PO DAILY 10/01/17 10/01/17 History Amlodipine [Norvasc] 5 mg PO BID 10/01/17 10/01/17 History Aspirin [Low Dose Aspirin EC] 81 mg PO DAILY 10/01/17 10/01/17 History Atorvastatin Calcium [Atorvastatin 20 mg PO HS 10/01/17 10/01/17 History Calcium] Duloxetine [Cymbalta] 60 mg PO HS 10/01/17 10/01/17 History Levothyroxine Sodium 200 mcg PO DAILY 10/01/17 10/01/17 History [Levothyroxine Sodium] Multivitamin [One Daily] 1 tab PO DAILY 10/01/17 10/01/17 History Nitroglycerin [Nitrostat] 0.4 mg SL Q5MIN3 PRN 10/01/17 10/01/17 History Potassium Chloride [Micro-K] 30 meq PO WB 10/01/17 10/01/17 History Pregabalin Cap [Lyrica] 75 mg PO BID 10/01/17 10/01/17 History Sodium Chloride [Deep Sea] 1 spray EA NOSTRIL QID 10/01/17 10/01/17 History Allergies Allergy/AdvReac Type Severity Reaction Status Date / Time azithromycin Allergy Intermediate Rash Verified 10/01/17 20:29 Iodine and Iodide Containing Allergy Unknown ITCHING Verified 10/01/17 20:29 Produc Exam Vital Signs: Temperature 96.8 F 10/01/17 23:49 Pulse Rate 76 10/01/17 23:49 Respiratory Rate 24 10/01/17 23:49 Blood Pressure 178/90 H 10/01/17 23:49 Pulse Oximetry 91 10/01/17 23:49 Height/Weight/BMI: Height 1.63 m Weight 122.5 kg Body Mass Index 46.3 - Constitutional Present: no acute distress, well nourished - Routine Neck Exam Present: supple - Routine Respiratory Exam Present: rales, rhonchi, diminished air movement (on the left, ) - Routine Cardiovascular Exam Present: RRR, no murmur - Routine Abdominal Exam Present: soft, normoactive bowel sounds, non tender - Routine Extremities Exam Present: edema Results - Labs CBC & Chem 7: 10/01/17 20:30 10/01/17 20:30 Assessment and Plan (1) Essential (primary) hypertension Current visit: No Status: Acute (2) Chronic kidney disease Current visit: No Status: Acute (3) Hypoxemia requiring supplemental oxygen Current visit: No Status: Acute (4) Pleural effusion on left Current visit: Yes Status: Acute Assessment and Plan: continue breathing tx, supplemental oxygen, normally on 2 lpm NC but now requiring 4-6 lpm , consider pulmonary consult, thoracentesis ordered for the morning, CT scan reviewed. pt does have the effusion but also supraclavical and mediastinal lymph node enlargement. pt is a DNR, will need to discuss with DPOA goals of care and need for onc. follow up. DVT Prophylaxis: SCD's GI Prophylaxis: Protonix Resuscitation Status: Do Not Resuscitate - Physician Narrative Narrative: Date: 10/02/17 Time: 0019 Hospital Course Summary Disclaimer: The visit summary below is not to be considered part of the above Progress Note.
[2017-10-02] MEDS: PANTOPRAZOLE 40 MG TABLET PO SCH (07:23)
[2017-10-02] MEDS: BUDESONIDE INH.SOLN 0.5mg/2ml NEB AEROSOL SCH ×2 (07:30→19:01)
[2017-10-02] MEDS: ALBUTEROL/IPRATROPIUM 2.5mg-0.5mg/3ml NEB AEROSOL SCH ×4 (07:30→19:00)
--- NOTE | 2017-10-02 08:20 | CT Scan Report ---
Indication: effusion vs pneumonia, SOA PROCEDURE: CT chest wo con: Encounter: Initial Comparison: Chest x-ray dated October 01, [address] dated June 09, 2011 Technique: Axial CT images were performed through the chest without intravenous contrast. Coronal and sagittal two-dimensional reformats. Automated Exposure Control and Iterative Reconstruction dose reducing techniques were utilized. Findings: Large left pleural effusion with compressive atelectasis of most of the left lung. No significant right pleural effusion. Mild right basilar atelectasis. No pneumothorax. There is new bulky left axillary and mediastinal adenopathy. There is a mass in the left posterior lateral breast measuring 2.9 x 5.1 cm in size on axial image #19. There is left breast skin thickening and tissue induration also present. Enlarged left axillary lymph nodes measuring up to 2.1 cm in short axis dimension. Enlarged bilateral paratracheal, prevascular and left hilar lymph nodes. Prevascular node on image #22 measuring 2.2 cm in short axis. Heart size is normal. There may be left supraclavicular adenopathy present as well, incompletely evaluated. The upper abdomen shows a benign left adrenal adenoma, stable since 2010 with right renal cyst and right renal stones. There is a low-attenuation lesion in the caudate lobe of the liver on image #59 measuring 5 cm in diameter, incompletely evaluated on this noncontrast study. Bone windows show degenerative change and scoliosis in the spine. 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 Probable hepatic metastatic disease with a large likely malignant pleural effusion. Diagnostic and therapeutic thoracentesis may be helpful. Oncology consultation is recommended. There is a preliminary report by [employer]. .
--- NOTE | 2017-10-02 08:24 | XRay Report ---
INDICATION: dyspnea PROCEDURE: CHEST 2-VIEWS UPRIGHT (PA & LAT) Encounter: Initial COMPARISON: Chest CT from the same date and chest x-ray dated September 12, 2017. FINDINGS: Increasing large left pleural effusion with compressive atelectasis of the left lung. Right lung is grossly clear. No pneumothorax. Cardiac silhouette is mildly enlarged but unchanged. Left heart border is obscured. There is increasing prominence of the hilar contours consistent with mediastinal adenopathy seen on CT. Pulmonary vascularity is grossly normal. Impression: Worsening large left pleural effusion, possibly a malignant effusion based on the CT. .
[2017-10-02] MEDS: MORPHINE SULFATE 4mg INJECTION IVP PRN (08:39)
[2017-10-02] MEDS: SALINE FLUSH 10ml SYRINGE IVF PRN (08:41)
[2017-10-02] MEDS: NS 1,000 ML IV SCH (09:25)
[2017-10-02] MEDS ORDERED: LIDOCAINE 1% (10mg/ml) 30ml PF SDV STERI-PAK ONE (10:31)
[2017-10-02] MEDS: SALINE 0.65% NASAL SPRAY 44 ML BOTTLE EA NOSTRIL SCH ×4 (11:35→20:24)
[2017-10-02] MEDS: LEVOTHYROXINE 200 MCG TABLET PO SCH (11:35)
[2017-10-02] MEDS: GUAIFENESIN LA 600 MG TABLET PO SCH ×2 (11:35→20:27)
[2017-10-02] MEDS: ALLOPURINOL 300 MG TABLET PO SCH (11:35)
[2017-10-02] MEDS: ISOSORBIDE MONONITRATE ER 30 MG TABLET PO SCH (11:35)
[2017-10-02] MEDS: PREGABALIN 75 MG CAPSULE PO SCH ×2 (11:36→20:25)
[2017-10-02] MEDS: ONDANSETRON 4 MG/2 ML INJECTION IVP PRN (11:36)
--- NOTE | 2017-10-02 12:44 | Ultrasound Report ---
Indication:L pleural effusion Ordering physician:Ramon Fraser MD Procedure:US thoracentesis THORACENTESIS: After discussing the details of the procedure, including the risks, the patient wished to proceed. Informed consent was obtained. A preprocedural timeout was performed to confirm the correct patient and procedure. Using aseptic technique, local lidocaine anesthetic, and ultrasound guidance throughout, a left-sided thoracentesis was performed using a posterolateral approach. 1200 mL of dark, straw-colored fluid was removed from the left hemithorax and sent to lab for the requested studies. The patient tolerated this procedure well. Following this, the patient was transferred back to her room on the medical floor in stable condition. Impression: Successful ultrasound-guided left-sided diagnostic and therapeutic thoracentesis with 1200 mL of fluid removed and sent to lab. Juan José Gatica RPA/NICOLA performed this under my personal supervision. .
--- NOTE | 2017-10-02 18:40 | General Surgery Consult Note ---
Consult date: 10/02/17 Attending Physician: Didier Lechuga MD Reason for consult: other (possible breast cancer) [facility] Patient Stated Medical History Dementia Yes Migraine Yes Cataracts Yes Dental Problems Yes: TEETH REMOVED Dysphagia Yes Glaucoma Yes Macular Degeneration Yes Other HEENT Yes: wears glasses Angina Yes Hypertension Yes Pneumonia Yes Sleep Apnea Yes: INCONCLUSIVE Gastroesophageal Reflux Yes Disease Other GI Yes: HEMRRHOIDS. Hx Incontinence Yes: previous Anemia Yes Osteoarthritis Yes Other Musculoskeletal Yes: FIBROMYALGIA Shingles Yes Depression Yes Clinic Medical History CKD (chronic kidney disease) (Acute Medical) Dementia (Acute Medical) Depression (Acute Medical) Dyslipidemia (Acute Medical) Family history of CVA (Acute Medical) Fibromyalgia (Acute Medical) HTN (hypertension) (Acute Medical) Hypothyroid (Acute Medical) Lumbar spinal stenosis (Acute Medical) Osteoarthritis (Acute Medical) Osteoporosis (Acute Medical) Restless leg syndrome (Acute Medical) Urinary incontinence (Acute Medical) Surgical History: cholecystectomy, thyroid surgery 2, cardiac stent 1 (April 2017-Dr. Botello) - Social History Smoking status: Never smoker Alcohol intake frequency: does not drink Current residence: [facility] Medications Home Medications Medication Instructions Recorded Confirmed Type Cetirizine HCl 10 mg PO DAILY PRN 04/02/17 10/01/17 History Cholecalciferol (Vitamin D3) 5,000 cap PO WEEKLY 04/02/17 10/01/17 History [Vitamin D3] Isosorbide Mononitrate ER [Imdur] 30 mg PO QAM 04/02/17 10/01/17 History Quetiapine [SEROquel] 200 mg PO HS 04/02/17 10/01/17 History Acetaminophen [Acetaminophen Extra 1,000 mg PO Q6HR PRN 09/08/17 10/01/17 History Strength] Pantoprazole Sodium [Protonix] 40 mg PO ACB 09/08/17 10/01/17 History Allopurinol [Zyloprim] 300 mg PO DAILY 10/01/17 10/01/17 History Amlodipine [Norvasc] 5 mg PO BID 10/01/17 10/01/17 History Aspirin [Low Dose Aspirin EC] 81 mg PO DAILY 10/01/17 10/01/17 History Atorvastatin Calcium [Atorvastatin 20 mg PO HS 10/01/17 10/01/17 History Calcium] Duloxetine [Cymbalta] 60 mg PO HS 10/01/17 10/01/17 History Levothyroxine Sodium 200 mcg PO DAILY 10/01/17 10/01/17 History [Levothyroxine Sodium] Multivitamin [One Daily] 1 tab PO DAILY 10/01/17 10/01/17 History Nitroglycerin [Nitrostat] 0.4 mg SL Q5MIN3 PRN 10/01/17 10/01/17 History Potassium Chloride [Micro-K] 30 meq PO WB 10/01/17 10/01/17 History Pregabalin Cap [Lyrica] 75 mg PO BID 10/01/17 10/01/17 History Sodium Chloride [Deep Sea] 1 spray EA NOSTRIL QID 10/01/17 10/01/17 History Allergies Allergy/AdvReac Type Severity Reaction Status Date / Time azithromycin Allergy Intermediate Rash Verified 10/01/17 20:29 Iodine and Iodide Containing Allergy Unknown ITCHING Verified 10/01/17 20:29 Produc Review of Systems 10-point ROS: negative except for HPI and the following: - General General: Present: fever, chills - Cardiovascular Cardiovascular: Present: edema/swelling - Respiratory Respiratory: Present: difficulty breathing, sleep apnea - Gastrointestinal Gastrointestinal: Present: diarrhea, other (dysphagia, GERD) - Genitourinary Females Only: Present: breat lump, other (incontinence) - Musculoskeletal Musculoskeletal: Present: back pain, joint pain (uses a walker at [facility]) - Neurological Neurological: Present: muscle weakness (uses a walker), other (dizziness) - Psychiatric Psychiatric: Present: anxiety, depression, other (confusion) - Vital Signs Last Vital Signs Temp 96.4 F L 10/02/17 15:20 Pulse 72 10/02/17 16:10 Resp 22 10/02/17 15:20 BP 158/72 H 10/02/17 15:20 Pulse Ox 92 10/02/17 15:20 - Laboratory Result Diagrams: 10/02/17 05:04 10/02/17 05:04 - Microbiogy Microbiology 10/02/17 11:00 Thoracic Fluid Gram Stain - Final 10/02/17 11:00 Thoracic Fluid Body Fluid Culture - Preliminary Culture Initiated - Results Pending General Surgery Results - Results Labs: 10/02/17 05:04 10/02/17 05:04 Microbiology: Microbiology 10/02/17 11:00 Thoracic Fluid Gram Stain - Final 10/02/17 11:00 Thoracic Fluid Body Fluid Culture - Preliminary Culture Initiated - Results Pending Hospital Course Summary Disclaimer: The visit summary below is not to be considered part of the above Progress Note.
[2017-10-02] MEDS: TRAMADOL 50 MG TABLET PO SCH (20:25)
[2017-10-02] MEDS: QUETIAPINE 200 MG TABLET PO SCH (20:25)
[2017-10-02] MEDS: DULOXETINE 60 MG CAPSULE PO SCH (20:26)
[2017-10-02] MEDS: DONEPEZIL 10 MG TABLET PO SCH (20:26)
[2017-10-02] MEDS: AMLODIPINE 5 MG TABLET PO SCH (20:26)
--- NOTE | 2017-10-02 21:52 | Consultation ---
DATE OF SERVICE 10/02/2017 FINDINGS Mrs. Alvarez is a 77-year-old female whom I was asked to see today as a result of a questionable mass noted within her left breast upon CT scan as well as the potential need for "lymph node biopsy." The patient unfortunately does suffer from dementia and I was unable to obtain much information from the patient herself. She does inform me that her left breast has been tender for quite some time. She does not remember the last time she had a mammogram. Patient states that her mother did have a breast cancer that was removed. The patient personally denied any history for breast cancer. Again, it was somewhat difficult to obtain information from the patient as a result of her dementia. The patient was able to inform me that she resides in a nearby [facility]. Apparently her [facility] facility had noted that the patient was becoming increasingly more short of breath and she was brought to the emergency room for further evaluation. Radiographically, she was found to have a large pleural effusion and she was admitted to our facility for further care. PAST MEDICAL HISTORY, PAST SURGICAL HISTORY, MEDICATIONS, ALLERGIES, SOCIAL HISTORY, FAMILY HISTORY, REVIEW OF SYSTEMS Performed by my nurse practitioner, Fernando Moses APRN. PHYSICAL EXAMINATION GENERAL: Mrs. Alvarez is a pleasant 77-year-old female who did not appear to be in acute distress this evening. VITAL SIGNS: T-max 96.4, pulse 72, respirations 22, blood pressure 158/72, SAO2 92% on 3 L/nasal cannula. HEENT: Normocephalic. Pupils are equally round and react to light and accommodation. CHEST: Auscultation of the chest did reveal some diminished breath sounds on the left when compared to the right. No rales or rhonchi. HEART: Regular rate and rhythm. Normal S1 and S2 without gallops, murmurs or clicks. BREASTS: Visualization of the left breast did reveal some slight erythema of the skin. There was no evidence for nipple retraction or skin dimpling. Palpation of the left breast itself initially did not reveal any palpable abnormalities. Attention was then focused to the most lateral aspect of the breast just beneath the left axilla. Along the anterior axillary line about 3 cm below the level of the axilla the patient was found to have a very hard discrete mass that is on the order about perhaps 3-4 cm in dimension. The mass is mobile in nature and does not appear to be fixated to underlying tissues. One can also appreciate a few enlarged lymph nodes within the left axilla upon deep palpation ABDOMEN: Palpation of the abdomen reveals it to be soft and nontender. I do not appreciate any evidence for hepatosplenomegaly nor abnormal masses. EXTREMITIES: Without clubbing, cyanosis, or edema. NEURO: Cranial nerves II-XII grossly intact. Patient is without focal motor or sensory deficits. LABORATORY/RADIOGRAPHIC EVALUATION The patient had a CBC today that was unremarkable. White count was 4.2. CMP was obtained today and found to be essentially within normal limits. BUN and creatinine were elevated at 27.0 and 1.9, respectively. Carbon dioxide was elevated at 32. Sodium slightly elevated at 145. Calcium upon admission was elevated at 12.2. Her calcium today was elevated at 11.8. The patient likely has metastatic disease to her bone perhaps resulting in this component of hypercalcemia. Radiographically, the patient had a chest x-ray obtained that did reveal a worsening large left pleural effusion, possibly malignant based on CT scan findings. This chest x-ray was from yesterday. 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 CT scan did reveal a mass within the left posterior lateral breast measuring 2.9 x 5.1 cm. There was a component of some left breast skin thickening and induration. Additionally, within the left axilla one could see some enlarged lymph nodes. Additionally, there was a low- attenuating lesion within the caudate lobe of the liver revealing possible metastatic spread to the liver. Additionally, there was a component of some large bilateral paratracheal and prevascular and hilar lymph nodes. Thoracentesis was performed today under ultrasound guidance. 1200 mL of fluid was aspirated without difficulty. ASSESSMENT 77-year-old female with left breast mass with associated component of erythema and skin thickening of left breast suggestive of inflammatory breast cancer. Patient status post left thoracentesis, most likely underlying etiology malignant pleural effusion. Cytology still pending. Patient with elevated calcium level suggestive of metastatic bone disease. PLAN At this point in time I recommend that we await her cytology results of her malignant pleural effusion. One may also wish to proceed with a percutaneous biopsy of this left breast mass which I believe could be performed at the bedside upon palpation, given the large nature of this mass. Radiology could also perform this as well under ultrasound guidance. For now will continue with current care and await her cytology from her thoracentesis and proceed with further recommendations thereafter. [facility]
[2017-10-03] MEDS: MORPHINE SULFATE 4mg INJECTION IVP PRN ×5 (00:22→21:10)
[2017-10-03] MEDS: HYDROCODONE/APAP 7.5 MG/325 MG TABLET PO PRN (03:56)
[2017-10-03] MEDS: NS 1,000 ML IV SCH ×2 (03:57→11:11)
[2017-10-03] MEDS: PANTOPRAZOLE 40 MG TABLET PO SCH (06:24)
[2017-10-03] MEDS: ALBUTEROL/IPRATROPIUM 2.5mg-0.5mg/3ml NEB AEROSOL SCH ×4 (07:50→19:00)
[2017-10-03] MEDS: BUDESONIDE INH.SOLN 0.5mg/2ml NEB AEROSOL SCH ×2 (07:50→19:00)
--- NOTE | 2017-10-03 08:42 | XRay Report ---
Indication: post thoracentesis PROCEDURE: XR chest 1V: Encounter: Initial Comparison: October 01, 2017 Findings: Decrease in left pleural effusion following thoracentesis. No visible pneumothorax. There is persistent airspace consolidation throughout the left lung with a basilar predominance. Right lung is stable and grossly clear. Heart size is stable. Mediastinal contours are unchanged. Impression: Decreased left effusion following thoracentesis. .
[2017-10-03] MEDS: TRAMADOL 50 MG TABLET PO SCH ×2 (09:20→21:13)
[2017-10-03] MEDS: AMLODIPINE 5 MG TABLET PO SCH ×2 (09:21→21:12)
[2017-10-03] MEDS: LEVOTHYROXINE 200 MCG TABLET PO SCH (09:21)
[2017-10-03] MEDS: GUAIFENESIN LA 600 MG TABLET PO SCH ×2 (09:21→21:12)
[2017-10-03] MEDS: PREGABALIN 75 MG CAPSULE PO SCH ×2 (09:21→21:12)
[2017-10-03] MEDS: ISOSORBIDE MONONITRATE ER 30 MG TABLET PO SCH (09:21)
[2017-10-03] MEDS: SALINE 0.65% NASAL SPRAY 44 ML BOTTLE EA NOSTRIL SCH ×4 (09:22→21:34)
[2017-10-03] MEDS: ALLOPURINOL 300 MG TABLET PO SCH (09:22)
--- NOTE | 2017-10-03 10:28 | Progress Note ---
DATE OF SERVICE 10/03/2017 FINDINGS Mrs. Alvarez was resting comfortably this morning. Her daughter was present this morning and had several questions for me. I did spend a moderate amount of time discussing the patient's findings and current plans with the patient's daughter. PHYSICAL EXAM VITAL SIGNS: Afebrile, normotensive. Current vitals include temperature 97.3, pulse 75, respirations 18, blood pressure 163/82, SAO2 93% on 5 L/nasal cannula. HEENT: Normocephalic. Pupils are equally round and react to light and accommodation. CHEST: Clear to auscultation bilaterally. HEART: Regular rate and rhythm. Normal S1 and S2 without gallops, murmurs or clicks. LABORATORY/RADIOGRAPHIC EVALUATION The patient had a CBC today and her white count remains stable at 4.5. Hemoglobin is stable at 12.5. BMP obtained and found to be essentially within normal limits. BUN and creatinine remain elevated at 23.0 and1.8, respectively. Chest x-ray was obtained this morning. Chest x-ray reveals decreased left effusion following thoracentesis. Cytology from yesterday's thoracentesis is still pending. ASSESSMENT 77-year-old female with probable metastatic left breast cancer. Status post thoracentesis. Cytology still pending. PLAN Continue with current care at this time. I did inform the patient's daughter that at this point in time it appears that her mother unfortunately has an advanced left breast cancer. I informed the patient's daughter of the CT scan findings from October 01, 2017 revealing a [id number]-size mass involving the lateral aspect of the left breast. Additionally, there was some associated axillary mediastinal adenopathy. I informed the patient's daughter that at this point in time we are awaiting the cytology from her thoracentesis. Further intervention will be undertaken pending these cytology results. The patient's daughter understood and agreed with the proposed plan at this time. [facility]
[2017-10-03] MEDS ORDERED: CEFEPIME 1 GM in NS 100 ML IV SCH (12:30)
[2017-10-03] MEDS ORDERED: VANCOMYCIN - PHARMACY CONSULT MC ONE (12:31)
--- NOTE | 2017-10-03 12:37 | Progress Note ---
- Date 10/03/17 Subjective: F/U: Left pleural effusion - concern for malignant effusion, Left breast mass suspicious for cancer, Hypoxemia requiring supplemental O2. Rough morning. More confused. When getting up to go for CXR this am was very weak-needing 3 people to assist her up. Despite this help, she still had fall to floor. Complaining of pain to right knee and leg. Also, having her chronic leg and back pain (daughter not that likely the bed is not that comfortable for her). Does still have some cough/congestion and feels SOA. Moving slight amount of sputum. Oral drive with decrease. Nausea this am. More confused in general- family wonders if from [place] this am. Objective Vital signs: Temperature 97.3 F 10/03/17 07:22 Pulse Rate 75 10/03/17 08:03 Respiratory Rate 20 10/03/17 11:30 Blood Pressure 163/92 H 10/03/17 08:03 Pulse Oximetry 93 10/03/17 11:30 Height/Weight/BMI: Height 1.63 m Weight 125.2 kg Body Mass Index 46.3 - Constitutional Present: moderate distress, well nourished, well developed, morbidly obese - Routine HEENT Exam Head: Present: normocephalic, atraumatic Eye: Present: EOMI, PERRL ENT: Present: mucous membranes moist - Routine Respiratory Exam Present: decreased breath sounds (Decreased air movement to left chest ), respiratory distress (Shallow breathing ), distant breath sounds, diminished air movement - Routine Cardiovascular Exam Present: RRR, no murmur - Routine Abdominal Exam Present: soft, non distended, non tender. Absent: normoactive bowel sounds ( Decreased ), guarding - Routine Extremities Exam Present: edema (+2 BLE ), pulses intact. Absent: cyanosis, clubbing - Routine Musculoskeletal Exam Musculoskeletal: Absent: no clubbing or cyanosis - Routine Skin Exam Present: dry, warm - Routine Neurological Exam Present: CN II-XII intact, vision grossly intact, hearing grossly intact - Routine Psychiatric Exam Present: anxious Comments: Converses with short phrases, not interacting well secondary to distraction from pain. Results - Labs CBC & Chem 7: 10/03/17 04:11 10/03/17 04:11 Microbiology Results: Microbiology 10/02/17 11:00 Thoracic Fluid Gram Stain - Final 10/02/17 11:00 Thoracic Fluid Body Fluid Culture - Preliminary Staphylococcus species Assessment and Plan (1) Pleural effusion on left Current visit: Yes Status: Acute (2) Hypoxemia requiring supplemental oxygen Current visit: No Status: Acute (3) Essential (primary) hypertension Current visit: No Status: Acute (4) Chronic kidney disease Current visit: No Status: Acute Assessment and Plan: Assessment Left pleural effusion - concern for malignant effusion Left breast mass suspicious for cancer Hypoxemia requiring supplemental O2. CAD HTN HDL Stage III CKD Hypothyroidism Restless leg syndrome Fibromyalgia Osteoarthritis Osteoporosis Urinary incontinence Dementia Depression Hypernatremia (POA) Functional decline - [facility] been [facility] Morbid Obesity with BMI 47.3 Plan Pleural fluid showing transudate. Cytology pending. Are seeing growth of Staph species from pleural fluid. Will start Cefepime and Vancomycin for Staph coverage. Discussed with Dr Martinez - will check on cytology as may be diagnostic, otherwise would need Bx or Lymph node or breast. Did discuss with daughter about concern for metastatic breast cancer. Right now do not have definitive Dx. Daughter uncertain if would want treatments (even palliative) due to patient' s dementia and significant decline in recent months. Did discuss about possible hospice care - however discussion was informational only and no decisions were made. Continue with low flow IVF of NS at 50cc/hr as oral drive. Continue pain control. Continue supplement O2 to maintain saturations. Recheck CXR in am to monitor effusion. Monitor lab. Case discussed with CM, Dr Martinez, and family. Time spent with patient care 35 minutes. DVT Prophylaxis: SCD's Resuscitation Status: Do Not Resuscitate - Time spent with patient Time with patient PN: 35 minutes Coordination of Care: >50% of visit spent providing counseling/coordination of care (Discussing potential for metastatic breast cancer, evaluation needed, potenitial treatments. Discussed with daughters ) - Physician Narrative Physician: Didier Lechuga MD Narrative: Date: 10/03/17 Time: 1231 Hospital Course Summary Disclaimer: The visit summary below is not to be considered part of the above Progress Note. Hospital Course: 10/01/17 - admit late evening Admit to inpatient status at [facility] secondary to worsening respiratory status secondary to left pleural effusion. Supplemental O2 to maintain saturations. Nebulized treatments for pulmonary toilet Hold ASA/Plavix due to anticipated surgical procedures. SCD for DVT prevention. DNR as per her requests. Care to return to PCP at time of discharge from [facility]. 10/02/17 US Guided thoracentesis for diagnostic and therapeutic purposes. Will consult with Dr Lockhart for potential Breast/Lymph node Bx. Decrease IVF to 50cc/hr 10/03/17 Pleural fluid showing transudate. Cytology pending. Are seeing growth of Staph species from pleural fluid. Will start Cefepime and Vancomycin for Staph coverage. Discussed with Dr Martinez - will check on cytology as may be diagnostic, otherwise would need Bx or Lymph node or breast. Did discuss with daughter about concern for metastatic breast cancer. Right now do not have definitive Dx. Daughter uncertain if would want treatments (even palliative) due to patient' s dementia and significant decline in recent months. Did discuss about possible hospice care - however discussion was informational only and no decisions were made. Continue with low flow IVF of NS at 50cc/hr as oral drive. Continue pain control. Continue supplement O2 to maintain saturations. Recheck CXR in am to monitor effusion.
--- NOTE | 2017-10-03 13:42 | Pharmacy Consult-Antibiotics ---
Pharmacy Consult-Vancomycin - Laboratory Information WBC 4.5 T/MM3 (4.5-11.0) 10/03/17 04:11 BUN 23.0 MG/DL (7-17) H 10/03/17 04:11 Creatinine 1.8 MG/DL (0.7-1.2) H 10/03/17 04:11 Procalcitonin 0.10 NG/ML 10/01/17 20:30 - Consult Information Consult for vancomycin therapy noted by Dr. Lechuga. Ms Alvarez is a 77yo female, 125kg with staph growing in the pleural fluid. She also has a chronic kidney disorder. Will give vancomycin 2000mg IV loading dose followed by once daily vancomycin (1500mg) thereafter. Will monitor kidney function closely. Thank you.
--- NOTE | 2017-10-03 15:17 | Wound Care Progress Note ---
Wound Management - Patient Status Premedicated Prior to Dressing Change: No - Wound Left Upper Posterior Buttock Wound Type: Pressure Injury Wound Staging: Stage II Length: 0.8 Width: 1 Depth: 0.1 Wound Bed Appearance: [place] Wound Appearance: Shiny Tunneling: No Undermining: No Drainage Description: Serous Drainage Amount: Scant Dressing Status: Changed Primary Dressing: Foam Dressing Dressing Change Date: 10/03/17 Dressing Change Time: 15:16 Dressing Change Patient Tolerance: Tolerated Well Microbiology: Microbiology 10/02/17 11:00 Thoracic Fluid Gram Stain - Final 10/02/17 11:00 Thoracic Fluid Body Fluid Culture - Preliminary Staphylococcus species
[2017-10-03] MEDS: CEFEPIME 1 GM in NS 100 ML IV SCH (20:35)
[2017-10-03] MEDS: DONEPEZIL 10 MG TABLET PO SCH (21:12)
[2017-10-03] MEDS: DULOXETINE 60 MG CAPSULE PO SCH (21:12)
[2017-10-03] MEDS: QUETIAPINE 200 MG TABLET PO SCH (21:13)
[2017-10-03] MEDS ORDERED: FUROSEMIDE 20 MG/2 ML INJECTION IVP ONE (21:29)
[2017-10-04] MEDS: MORPHINE SULFATE 4mg INJECTION IVP PRN ×3 (01:01→17:19)
[2017-10-04] MEDS: CEFEPIME 1 GM in NS 100 ML IV SCH ×3 (04:19→20:10)
[2017-10-04] MEDS: PANTOPRAZOLE 40 MG TABLET PO SCH (06:55)
[2017-10-04] MEDS: BUDESONIDE INH.SOLN 0.5mg/2ml NEB AEROSOL SCH ×2 (07:42→20:22)
[2017-10-04] MEDS: ALBUTEROL/IPRATROPIUM 2.5mg-0.5mg/3ml NEB AEROSOL SCH ×4 (07:43→20:22)
--- NOTE | 2017-10-04 08:56 | XRay Report ---
Indication: F/U Effusion PROCEDURE: XR chest 1V: Encounter: Initial Comparison: October 03, 2017 Findings: Continued hazy opacity throughout the left lung with a small left pleural effusion. No pneumothorax. Right lung is stable and grossly clear. Cardiac silhouette is stable as are the mediastinal contours. Impression: Stable chest with small left effusion and left sided infiltrates. .
[2017-10-04] MEDS: AMLODIPINE 5 MG TABLET PO SCH ×2 (09:26→20:30)
[2017-10-04] MEDS: GUAIFENESIN LA 600 MG TABLET PO SCH ×2 (09:26→20:29)
[2017-10-04] MEDS: ISOSORBIDE MONONITRATE ER 30 MG TABLET PO SCH (09:26)
[2017-10-04] MEDS: ALLOPURINOL 300 MG TABLET PO SCH (09:26)
[2017-10-04] MEDS: LEVOTHYROXINE 200 MCG TABLET PO SCH (09:27)
[2017-10-04] MEDS: TRAMADOL 50 MG TABLET PO SCH ×2 (09:27→20:28)
[2017-10-04] MEDS: PREGABALIN 75 MG CAPSULE PO SCH ×2 (09:28→20:29)
[2017-10-04] MEDS ORDERED: ACETAMINOPHEN 325 MG SUPPOSITORY PR PRN (09:28)
[2017-10-04] MEDS ORDERED: FUROSEMIDE 20 MG/2 ML INJECTION IVP ONE (09:32)
[2017-10-04] MEDS: SALINE 0.65% NASAL SPRAY 44 ML BOTTLE EA NOSTRIL SCH ×4 (10:09→20:29)
--- NOTE | 2017-10-04 10:16 | Progress Note ---
- Date 10/04/17 Subjective: Bethany is seen this morning in follow up as she is requiring up to 6 liters of oxygen of nasal canula. Noted to have mild respiratory distress during examination. He is somewhat somnolent as she did receive morphine earlier today for knee pain. She denies having chest pain on examination. Noted weight is up to 5 KG and patient is edematous all over. Objective Vital signs: Temperature 100.5 F H 10/04/17 08:00 Pulse Rate 90 10/04/17 08:00 Respiratory Rate 20 10/04/17 08:00 Blood Pressure 142/73 H 10/04/17 08:00 Pulse Oximetry 91 10/04/17 08:00 Height/Weight/BMI: Height 1.63 m Weight 128 kg Body Mass Index 46.3 - Constitutional Present: no acute distress, well nourished, well developed - Routine HEENT Exam Eye: Present: EOMI ENT: Present: mucous membranes moist, dentition normal - Routine Respiratory Exam Present: wheezes, crackles, diminished air movement - Routine Cardiovascular Exam Present: RRR, S1, S2. Absent: murmur - Routine Abdominal Exam Present: soft, normoactive bowel sounds, non distended. Absent: tenderness - Routine Extremities Exam Present: full ROM, normal capillary refill - Routine Back/Spine/Pelvis Exam Back/Spine: Present: full ROM - Routine Skin Exam Present: dry, warm - Routine Neurological Exam Present: alert, oriented X3, CN II-XII intact - Routine Lymphatic Exam Lymphatic: Absent: adenopathy - Routine Psychiatric Exam Present: normal affect Results - Labs CBC & Chem 7: 10/04/17 04:03 10/04/17 04:03 Microbiology Results: Microbiology 10/02/17 11:00 Thoracic Fluid Gram Stain - Final 10/02/17 11:00 Thoracic Fluid Body Fluid Culture - Preliminary Staphylococcus species - ABG Interpretation ABG results: 10/04/17 09:18 ABG pH 7.300 L ABG pCO2 64 H* ABG pO2 75 L ABG HCO3 32 H ABG Total CO2 33.5 H ABG O2 Saturation 93.0 L ABG Base Excess 3.4 H Assessment and Plan (1) Essential (primary) hypertension Current visit: No Status: Acute (2) Chronic kidney disease Current visit: No Status: Acute (3) Hypoxemia requiring supplemental oxygen Current visit: No Status: Acute (4) Pleural effusion on left Current visit: Yes Status: Acute Assessment and Plan: Assessment Left pleural effusion - concern for malignant effusion Left breast mass suspicious for cancer Hypoxemia requiring supplemental O2. CAD HTN HDL Stage III CKD Hypothyroidism Restless leg syndrome Fibromyalgia Osteoarthritis Osteoporosis Urinary incontinence Dementia Depression Hypernatremia (POA) Functional decline - has been on custodial at for care Morbid Obesity with BMI 47.3 Plan Pleural fluid pathology reports no malignant cells showing transudate. Are seeing growth of Staph species from pleural fluid. Continue on Cefepime and Vancomycin for Staph coverage. She will need a Breast/Lymph Bx in the future Will work on diuresing, Lasix 40 [address] [place]ino catheter to monitor accurate output ABG pending. Chest x-ray with small effusion with stable infiltrate Skin appears to have erythema, unsure if this is related to increased temperate up to 100.5 versus reaction to medication. Will follow carefully. Discussed with attending, Dr Saenz 10/04/2017-I reviewed this chart, the patient history, and the TELETYPIST's/PA's documented findings as above. We discussed and formulated the assessment and plan as above with the additions below.-Dr. Saenz Patient is seen this afternoon accompanied by her daughter. The patient is very somnolent and her daughter states she has not been awake the past 2 hours she has been present. The patient did require more oxygen overnight. Chino catheter was placed and diuresis was initiated without much improvement. ABG was obtained and did show pH of 7.3, PCO2 64, PO2 of 75. On exam the patient is arousable to loud voice and noxious stimuli. She tries to answer questions but her voice is unintelligible and she falls back to sleep. Oropharynx is dry and she is mouth breathing. Chest is clear to auscultation. Cardiac vascular reveals a regular rate and rhythm. Breast reveals a mass on the left lateral upper breast. Abdomen is soft and nontender. Extremities reveal 2+ edema. SCDs are on. Skin is flushed and she has had a fever. The patient was given Tylenol rectally earlier today. The patient underwent thoracentesis on the and cytology testing shows no malignant cells. Impression Acute on chronic hypoxic and hypercapnic respiratory failure-worsening Severe somnolence-likely secondary to a combination of pain medication, CO2 retention, and hypercalcemia Probable breast cancer with what looks like metastatic spread to the mediastinum , axilla, and liver. Left pleural effusion-small and stable today on chest x-ray per radiology. I did review the film and it looks similar to previous chest x-ray post thoracentesis. Severe functional decline Hypercalcemia-most likely hypercalcemia of malignancy Chronic kidney disease Fluid overload-weight up 5 kg Pleural fluid positive for coag negative staph on culture. Gram stain also revealed bacteria. Plan We'll initiate BiPAP. Check PTH level today regarding hypercalcemia. Further treatment of hypercalcemia depending upon PTH level. Diuresis as able. Continue the lisinopril and cefepime for coag-negative staph infection of pleural fluid/possible pneumonia Consider oncology consultation, will discuss with patient's daughters. Discussed earlier today with Dr. Martinez. Planning for ultrasound-guided biopsy of left breast mass tomorrow. - Time spent with patient Time with patient PN: 35 minutes - Physician Narrative Narrative: Date: 10/04/17 Time: 1014 Hospital Course Summary Disclaimer: The visit summary below is not to be considered part of the above Progress Note. Hospital Course: 10/01/17 - admit late evening Admit to inpatient status at [facility] [place] secondary to worsening respiratory status secondary to left pleural effusion. Supplemental O2 to maintain saturations. Nebulized treatments for pulmonary toilet Hold ASA/Plavix due to anticipated surgical procedures. SCD for DVT prevention. DNR as per her requests. Care to return to PCP at time of discharge from [facility] [place]. 10/02/17 US Guided thoracentesis for diagnostic and therapeutic purposes. Will consult with Dr Lockhart for potential Breast/Lymph node Bx. Decrease IVF to 50cc/hr 10/03/17 Pleural fluid showing transudate. Cytology pending. Are seeing growth of Staph species from pleural fluid. Will start Cefepime and Vancomycin for Staph coverage. Discussed with Dr Martinez - will check on cytology as may be diagnostic, otherwise would need Bx or Lymph node or breast. Did discuss with daughter about concern for metastatic breast cancer. Right now do not have definitive Dx. Daughter uncertain if would want treatments (even palliative) due to patient' s dementia and significant decline in recent months. Did discuss about possible hospice care - however discussion was informational only and no decisions were made. Continue with low flow IVF of NS at 50cc/hr as oral drive. Continue pain control. Continue supplement O2 to maintain saturations. Recheck CXR in am to monitor effusion. 10/04/17 10:51 Plan Pleural fluid pathology reports no malignant cells showing transudate. Are seeing growth of Staph species from pleural fluid. Continue on Cefepime and Vancomycin for Staph coverage. She will need a Breast/Lymph Bx in the future Will work on diuresing, Lasix 40 [address] [place]ino catheter to monitor accurate output ABG pending Skin appears to have erythema, unsure if this is related to increased temperate up to 100.5 versus reaction to medication. Will follow carefully. Discussed with attending, Dr Saenz
--- NOTE | 2017-10-04 13:01 | Progress Note ---
DATE 10/04/2017 FINDINGS Mrs. Alvarez today was resting upon entering the hospital room. Her daughter was present. The patient was without complaints. VITALS: Temperature 100.5, pulse 90, blood pressure 142/73, SaO2 91% on 7 liters per nasal cannula. The patient is requiring increasing oxygen. CHEST: Auscultation of the chest did reveal some diminished breath sounds on the left compared to the right. HEART: Regular rate and rhythm. ABDOMEN: Soft, nontender. LABORATORY/RADIOGRAPH EVALUATION The patient had a CBC today as well as a blood gas. CBC was unremarkable. Blood gas did reveal increasing pCO2 of 64, pH of 7.3. BMP obtained and found to be overall stable. A chest x-ray was obtained today. Chest x-ray revealed a "stable chest with a mild/small left effusion and left-sided infiltrates." Cytology returned as negative for malignant cells. It does appear there is fair amount of infiltrate/atelectasis involving the left chest and the left lung welch are almost "maris out." There also appears to be a somewhat ground -glass patchy appearance of the right lung field as well. ASSESSMENT 77-year-old female who suffers from dementia as well as an additional medical comorbidities. Newly discovered left breast mass which is likely metastatic in nature. PLAN Secondary to fact that her cytology was negative, it would be my recommendation that we go ahead and have radiology perform an ultrasound-guided biopsy of this left breast mass out laterally involving the left breast to obtain a tissue diagnosis. Daughter is still leaning towards hospice/palliative care. Daughter , however, did wish to proceed with a biopsy to obtain more of a definitive diagnosis. MTDD
--- NOTE | 2017-10-04 14:34 | Breast Ultrasound ---
#[id number] - US BREAST LT LIMITED ULTRASOUND OF LEFT BREAST: 10/04/2017 CLINICAL: X07-Alroij Lump/Mass, unspecified; Left breast. Comparison is made to exam dated: 01/03/2011 mammogram - [facility] [place]. Color flow, real-time, and Doppler ultrasound of the left breast were performed. Andrews scale images of the real-time examination were reviewed. There is a 3.6 cm x 1.5 cm x 3.9 cm lobulated enlarged node in the left axillary tail. This lobulated enlarged node is hypoechoic with no fatty hilum. This correlates as palpated and correlates with the abnormality on recent chest CT. IMPRESSION: HIGHLY SUGGESTIVE OF MALIGNANCY - FOLLOW-UP RECOMMENDED The 3.6 cm x 1.5 cm x 3.9 cm lobulated enlarged node is consistent with a metastatic lymph node and is highly suggestive of malignancy. An ultrasound guided biopsy is recommended. The patient has been or will be contacted. Dr. Juan José Medrano [facility]/:10/04/2017 14:08:16 Machine Plug Shaper: Minna OREILLY, [facility] [place] letter sent: Abnormal Category 4/5 Ultrasound BI-RADS: 5 Highly suggestive of malignancy MTDD
[2017-10-04] MEDS ORDERED: LIDOCAINE 1% (10mg/ml) 30ml PF SDV STERI-PAK ONE (14:47)
--- NOTE | 2017-10-04 15:12 | Consult Note ---
<Dayami Shaver - Last Filed: 10/04/17 15:55> Oncology HPI - Data of Consult Patient: new to practice Consult date: 10/04/17 Requesting Physician: Tammy Saenz MD Primary Care Provider: Thalia Nur MD Family Provider: Thalia Nur MD - Consult Narrative Reason for consult: likely breast cancer History of present illness: 77-year-old female, seen as a new patient to Dr. Smith had recent hospitalization early September with pneumonia/hypoxemia. Had acute onset worsening confusion, increased weakness, and hypoxemia. Readmitted and noted to have large pleural effusion. Also noted to have left breast mass, mediastinal and left axillary adenopathy, possible liver lesion. At time of intake, patient on BiPAP, opens eyes when spoken to, attempts to speak, but speech is unintelligible. Daughter at bedside and provides some history. Patient with significant multiple comorbidities; family would like diagnostic workup, but if cancer, daughter states are fairly certain do not want to pursue aggressive therapy Review of Systems All systems: reviewed and no additional remarkable complaints except as stated Review of systems: Patient on BiPAP. Opens eyes when spoken to, but speech is unintelligible. Minimal response and falls back to sleep. Unable to obtain ROS PFSH Patient Stated Medical History Dementia Yes Migraine Yes Cataracts Yes Dental Problems Yes: TEETH REMOVED Dysphagia Yes Glaucoma Yes Macular Degeneration Yes Other HEENT Yes: wears glasses Angina Yes Hypertension Yes Pneumonia Yes Sleep Apnea Yes: INCONCLUSIVE Gastroesophageal Reflux Yes Disease Other GI Yes: HEMRRHOIDS. Hx Incontinence Yes: previous Hx Renal Disease Yes Anemia Yes Osteoarthritis Yes Other Musculoskeletal Yes: FIBROMYALGIA Shingles Yes Depression Yes Clinic Medical History CKD (chronic kidney disease) (Acute Medical) Dementia (Acute Medical) Depression (Acute Medical) Dyslipidemia (Acute Medical) Family history of CVA (Acute Medical) Fibromyalgia (Acute Medical) HTN (hypertension) (Acute Medical) Hypothyroid (Acute Medical) Lumbar spinal stenosis (Acute Medical) Osteoarthritis (Acute Medical) Osteoporosis (Acute Medical) Restless leg syndrome (Acute Medical) Urinary incontinence (Acute Medical) Surgical History: cholecystectomy, thyroid surgery 2, cardiac stent 1 (April 2017-Dr. Botello) - Social History Smoking status: Never smoker Substance use type: does not use Housing: intermediate Current occupational status: retired Does patient use chewing tobacco?: No Current residence: Retirement Medications Home Medications Medication Instructions Recorded Confirmed Type Cetirizine HCl 10 mg PO DAILY PRN 04/02/17 10/01/17 History Cholecalciferol (Vitamin D3) 5,000 cap PO WEEKLY 04/02/17 10/01/17 History [Vitamin D3] Isosorbide Mononitrate ER [Imdur] 30 mg PO QAM 04/02/17 10/01/17 History Quetiapine [SEROquel] 200 mg PO HS 04/02/17 10/01/17 History Acetaminophen [Acetaminophen Extra 1,000 mg PO Q6HR PRN 09/08/17 10/01/17 History Strength] Pantoprazole Sodium [Protonix] 40 mg PO ACB 09/08/17 10/01/17 History Allopurinol [Zyloprim] 300 mg PO DAILY 10/01/17 10/01/17 History Amlodipine [Norvasc] 5 mg PO BID 10/01/17 10/01/17 History Aspirin [Low Dose Aspirin EC] 81 mg PO DAILY 10/01/17 10/01/17 History Atorvastatin Calcium [Atorvastatin 20 mg PO HS 10/01/17 10/01/17 History Calcium] Duloxetine [Cymbalta] 60 mg PO HS 10/01/17 10/01/17 History Levothyroxine Sodium 200 mcg PO DAILY 10/01/17 10/01/17 History [Levothyroxine Sodium] Multivitamin [One Daily] 1 tab PO DAILY 10/01/17 10/01/17 History Nitroglycerin [Nitrostat] 0.4 mg SL Q5MIN3 PRN 10/01/17 10/01/17 History Potassium Chloride [Micro-K] 30 meq PO WB 10/01/17 10/01/17 History Pregabalin Cap [Lyrica] 75 mg PO BID 10/01/17 10/01/17 History Sodium Chloride [Deep Sea] 1 spray EA NOSTRIL QID 10/01/17 10/01/17 History Allergies Allergy/AdvReac Type Severity Reaction Status Date / Time azithromycin Allergy Intermediate Rash Verified 10/01/17 20:29 Iodine and Iodide Containing Allergy Unknown ITCHING Verified 10/01/17 20:29 Produc Exam Vital signs: Temperature 99.5 F 10/04/17 12:44 Pulse Rate 90 10/04/17 08:00 Respiratory Rate 14 10/04/17 12:04 Blood Pressure 142/73 H 10/04/17 08:00 Pulse Oximetry 91 10/04/17 08:00 - Constitutional no acute distress, morbidly obese, somnolent - Routine HEENT Exam Head: Present: normocephalic Eye: Present: EOMI ENT: Present: mucous membranes dry - Routine Neck Exam Present: supple, lymphadenopathy Comments: Moans with exam, tenderness with palpation of neck and chest. Left anterior cervical lymphadenopathy noted. - Routine Chest/Breast/Axilla Exam Breast: Present: tenderness, erythema (limited breast exam performed secondary to moaning, obvious tenderness with exam. Significant left axillary adenopathy appreciated) - Routine Respiratory Exam Present: decreased breath sounds Comments: On BiPAP. - Routine Cardiovascular Exam Present: RRR, no murmur - Routine Abdominal Exam Present: soft, normoactive bowel sounds Comments: No organomegaly or mass appreciated but difficult to assess secondary to body habitus - Routine Extremities Exam Present: edema Comments: Mild foot drop appreciated - Routine Skin Exam Present: pallor - Routine Neurological Exam Present: altered mental status Oncology Results - Labs CBC & Chem 7: 10/04/17 04:03 10/04/17 04:03 Labs: Short CBC 10/04/17 Range/Units 04:03 WBC 6.7 D (4.5-11.0) T/MM3 Hgb 12.6 (12-16) GM/DL Hct 41.8 (36-46) % Plt Count 114 L (130-400) T/MM3 [facility] 10/04/17 04:03 Sodium 143 Potassium 4.5 Chloride 106 Carbon Dioxide 29 BUN 25.0 H Creatinine 1.9 H Glucose 91 Calcium 11.6 H - Impressions Date of Exam: 10/01/17 Ordering Provider: Agatha Triana APRN Type of Exam(s): CT chest wo con Reason for Exam(s): effusion vs pneumonia, SOA Indication: effusion vs pneumonia, SOA PROCEDURE: CT chest wo con: Encounter: Initial Comparison: Chest x-ray dated October 01, [address] dated June 09, 2011 Technique: Axial CT images were performed through the chest without intravenous contrast. Coronal and sagittal two-dimensional reformats. Automated Exposure Control and Iterative Reconstruction dose reducing techniques were utilized. Findings: Large left pleural effusion with compressive atelectasis of most of the left lung. No significant right pleural effusion. Mild right basilar atelectasis. No pneumothorax. There is new bulky left axillary and mediastinal adenopathy. There is a mass in the left posterior lateral breast measuring 2.9 x 5.1 cm in size on axial image #19. There is left breast skin thickening and tissue induration also present. Enlarged left axillary lymph nodes measuring up to 2.1 cm in short axis dimension. Enlarged bilateral paratracheal, prevascular and left hilar lymph nodes. Prevascular node on image #22 measuring 2.2 cm in short axis. Heart size is normal. There may be left supraclavicular adenopathy present as well, incompletely evaluated. The upper abdomen shows a benign left adrenal adenoma, stable since 2011 with right renal cyst and right renal stones. There is a low-attenuation lesion in the caudate lobe of the liver on image #59 measuring 5 cm in diameter, incompletely evaluated on this noncontrast study. Bone windows show degenerative change and scoliosis in the spine. 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 Probable hepatic metastatic disease with a large likely malignant pleural effusion. Diagnostic and therapeutic thoracentesis may be helpful. Oncology consultation is recommended. Assessment and Plan Assessment and Plan: 1. Breast mass with possible metastatic spread to mediastinum, axilla, and liver. 2. Hypercalcemia 3. Acute on chronic hypoxemia and hypercapnic respiratory failure, recently placed on BiPAP. 4. Left pleural effusion 5. Kidney disease 6. Fluid overload 7. Dementia Plan Planning biopsy of breast mass for definitive pathological diagnosis. Dr. Smith will see patient later today. Await pathology results. Continue supportive care. <Jordy Smith - Last Filed: 10/04/17 18:19> Oncology HPI - Data of Consult Requesting Physician: Tammy Saenz MD Primary Care Provider: Thalia Nur MD Family Provider: Thalia Nur MD [facility] Patient Stated Medical History Dementia Yes Migraine Yes Cataracts Yes Dental Problems Yes: TEETH REMOVED Dysphagia Yes Glaucoma Yes Macular Degeneration Yes Other HEENT Yes: wears glasses Angina Yes Hypertension Yes Pneumonia Yes Sleep Apnea Yes: INCONCLUSIVE Gastroesophageal Reflux Yes Disease Other GI Yes: HEMRRHOIDS. Hx Incontinence Yes: previous Hx Renal Disease Yes Anemia Yes Osteoarthritis Yes Other Musculoskeletal Yes: FIBROMYALGIA Shingles Yes Depression Yes Clinic Medical History CKD (chronic kidney disease) (Acute Medical) Dementia (Acute Medical) Depression (Acute Medical) Dyslipidemia (Acute Medical) Family history of CVA (Acute Medical) Fibromyalgia (Acute Medical) HTN (hypertension) (Acute Medical) Hypothyroid (Acute Medical) Lumbar spinal stenosis (Acute Medical) Osteoarthritis (Acute Medical) Osteoporosis (Acute Medical) Restless leg syndrome (Acute Medical) Urinary incontinence (Acute Medical) Exam Vital signs: Temperature 101.0 F H 10/04/17 16:00 Pulse Rate 95 10/04/17 16:00 Respiratory Rate 18 10/04/17 16:00 Blood Pressure 139/66 10/04/17 16:00 Pulse Oximetry 95 10/04/17 16:00 Oncology Results - Labs CBC & Chem 7: 10/04/17 04:03 10/04/17 04:03 Labs: Short CBC 10/04/17 Range/Units 04:03 WBC 6.7 D (4.5-11.0) T/MM3 Hgb 12.6 (12-16) GM/DL Hct 41.8 (36-46) % Plt Count 114 L (130-400) T/MM3 [facility] 10/04/17 04:03 Sodium 143 Potassium 4.5 Chloride 106 Carbon Dioxide 29 BUN 25.0 H Creatinine 1.9 H Glucose 91 Calcium 11.6 H Assessment and Plan Assessment and Plan: Patient examined, chart reviewed Agree with documentation of Michelle Shaver. Suspect Breast Cancer. Discussed with Dr. Medrano. Will get Biopsy of either axillary or SC node Overall prognosis guarded. Need tissue to help family make decision of comfort care vs aggressive therapy.
--- NOTE | 2017-10-04 16:20 | Ultrasound Report ---
Indication:Adenopathy. Procedure:US biopsy soft tissue neck SUPRACLAVICULAR LYMPH NODE BIOPSY WITH ULTRASOUND GUIDANCE: After discussing the details of the procedure, including risks, the patient and her daughter wished to proceed. Informed consent was obtained from the patient's DURABLE POWER OF ASSET PROTECTION DETECTIVE. Using aseptic technique, local lidocaine anesthetic, and ultrasound guidance throughout, four passes using an 18-gauge x 2.3 cm throw core Biopince biopsy needle were performed to obtain multiple tissue samples of two enlarged left supraclavicular lymph nodes. Both lymph nodes were biopsied simultaneously. The tissue samples were placed in formalin and sent to lab for the requested studies. The patient tolerated this procedure well. The patient remained in her room in stable condition. Impression: Technically successful simultaneous core biopsy of two enlarged left supraclavicular lymph nodes. Juan José Gatica RPA/NICOLA performed this under my personal supervision. .
[2017-10-04] MEDS: ONDANSETRON 4 MG/2 ML INJECTION IVP PRN (17:18)
[2017-10-04] MEDS: DONEPEZIL 10 MG TABLET PO SCH (20:29)
[2017-10-04] MEDS: QUETIAPINE 200 MG TABLET PO SCH (20:29)
[2017-10-04] MEDS: DULOXETINE 60 MG CAPSULE PO SCH (20:29)
[2017-10-04] MEDS: SALINE FLUSH 10ml SYRINGE IVF PRN (21:17)
[2017-10-05] MEDS: HYDROCODONE/APAP 7.5 MG/325 MG TABLET PO PRN (03:17)
[2017-10-05] MEDS: CEFEPIME 1 GM in NS 100 ML IV SCH ×2 (03:21→13:00)
[2017-10-05] MEDS: ALBUTEROL/IPRATROPIUM 2.5mg-0.5mg/3ml NEB AEROSOL SCH ×4 (06:31→19:33)
[2017-10-05] MEDS: BUDESONIDE INH.SOLN 0.5mg/2ml NEB AEROSOL SCH ×2 (06:31→19:33)
[2017-10-05] MEDS: PANTOPRAZOLE 40 MG TABLET PO SCH (06:39)
[2017-10-05] MEDS ORDERED: DEXAMETHASONE INJ 10 MG in NS 50 ML IV SCH (08:30)
[2017-10-05] MEDS ORDERED: DEXAMETHASONE INJ 10 MG in NS 50 ML IV ONE (09:00)
[2017-10-05] MEDS: ALLOPURINOL 300 MG TABLET PO SCH (09:39)
[2017-10-05] MEDS: AMLODIPINE 5 MG TABLET PO SCH ×2 (09:39→20:51)
[2017-10-05] MEDS: GUAIFENESIN LA 600 MG TABLET PO SCH (09:39)
[2017-10-05] MEDS: ISOSORBIDE MONONITRATE ER 30 MG TABLET PO SCH (09:40)
[2017-10-05] MEDS: LEVOTHYROXINE 200 MCG TABLET PO SCH (09:40)
[2017-10-05] MEDS: TRAMADOL 50 MG TABLET PO SCH ×2 (09:41→20:50)
[2017-10-05] MEDS: PREGABALIN 75 MG CAPSULE PO SCH ×2 (09:41→20:52)
[2017-10-05] MEDS: SALINE 0.65% NASAL SPRAY 44 ML BOTTLE EA NOSTRIL SCH ×4 (09:41→21:16)
[2017-10-05] MEDS: MORPHINE SULFATE 4mg INJECTION IVP PRN ×2 (09:42→12:06)
--- NOTE | 2017-10-05 11:19 | Progress Note ---
<Dayami Shaver - Last Filed: 10/05/17 13:38> Oncology Subjective More alert and oriented today. Gives her name, knows she is in the hospital, but cannot tell me date. Maximum temperature 101.0 yesterday, afebrile today. Denies pain currently, but moans with any examination. Family at bedside. General: + fever-max 101.0 at 1600 10/04/17. Afebrile today. Eyes: No redness, no pain, no diplopia ENT: No mouth sores, no trouble swallowing Cardiac: No chest pain no palpitations Pulmonary: + shortness of breath, no wheezing Abdomen: No pain, no nausea vomiting, no diarrhea or constipation : Indwelling Chino catheter Musculoskeletal: Chronic fibromyalgia. Moans with any exam Neurological: No headaches, no focal weakness Skin: No rash, no sores Psychiatric: No anxiety, no depression Exam Vital signs: Temperature 98.7 F 10/05/17 08:00 Pulse Rate 92 10/05/17 08:00 Respiratory Rate 22 10/05/17 08:00 Blood Pressure 153/71 H 10/05/17 08:00 Pulse Oximetry 91 10/05/17 08:00 - Constitutional no acute distress, morbidly obese - Routine HEENT Exam Head: Present: normocephalic Eye: Present: EOMI, conjunctivae pink ENT: Present: mucous membranes moist - Routine Neck Exam Present: lymphadenopathy (left anterior cervical lymphadenopathy) - Routine Respiratory Exam Present: decreased breath sounds, distant breath sounds. Absent: wheezes, crackles - Routine Cardiovascular Exam Present: RRR, no murmur - Routine Abdominal Exam Present: soft (decreased bowel sounds, no organomegaly or mass but difficult to assess secondary to body habitus.) - Routine Extremities Exam Present: edema (trace pedal edema peter. LE) - Routine Skin Exam Present: dry, pallor, warm - Routine Neurological Exam Present: alert, moving all extremities - Routine Psychiatric Exam Present: normal affect, cooperative Oncology Results - Labs CBC & Chem 7: 10/04/17 04:03 10/05/17 04:16 Labs: BMP 10/05/17 10/05/17 04:16 04:16 Sodium 144 Potassium 4.7 Chloride 107 Carbon Dioxide 27 BUN 36.0 H Creatinine 2.2 H D 2.2 H Glucose 115 H Calcium 11.7 H Assessment and Plan Assessment and Plan: 1. Breast mass with possible metastatic spread to mediastinum, axilla, and liver. Biopsy of lymph node performed 10/04/17 2. Hypercalcemia. Baseline calcium level 12.2 on 10/01/17, today, 10/05/17 is 11.7 3. Acute on chronic hypoxemia and hypercapnic respiratory failure,10/04/17 placed on BiPAP. Today oxygen via nasal cannula. SaO2 is satisfactory 4. Left pleural effusion 5. Kidney disease 6. Fluid overload 7. Dementia. Plan Awaiting pathology results. Will check myeloma labs. Continue supportive care. - Time Spent With Patient Total time spent is greater than 50% in coordination of care (as documented) at patient's floor/unit and/or counseling patient: less than 15 minutes <Jordy Smith - Last Filed: 10/05/17 15:31> Exam Vital signs: Temperature 98.7 F 10/05/17 08:00 Pulse Rate 94 10/05/17 08:00 Respiratory Rate 22 10/05/17 14:28 Blood Pressure 153/71 H 10/05/17 08:00 Pulse Oximetry 91 10/05/17 14:28 Oncology Results - Labs CBC & Chem 7: 10/04/17 04:03 10/05/17 04:16 Labs: BMP 10/05/17 10/05/17 04:16 04:16 Sodium 144 Potassium 4.7 Chloride 107 Carbon Dioxide 27 BUN 36.0 H Creatinine 2.2 H D 2.2 H Glucose 115 H Calcium 11.7 H Assessment and Plan Assessment and Plan: Discussed with Dr. Aguilera, Dr. Romero and Dr. Saenz. 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 Formal path pending special stains that should be available tomorrow. Gave one dose of dexamethasone today to treat hypercalcemia potentially temporize with final path. Discussed with patient and daughter today. Daughter related that patient has stated that she did not want chemotherapy. Creatinine up to 2.2. elevated calcium. Pleural fluid with 77 % lymphs. Doing CD 20 and CD 4 stain on pleural fluid. Best treatment would be RCHOP but I do not feel that patient would survive with this treatment. Other options for palliation would be single agent rituxan, Rituxan Bendamustine and Rituxan Revlamid. Will await final path. Dr. Elamin will be biomass production manager for me starting 5 pm today. I participated in the development of the plan of care of this patient with Michelle Shaver. LDH is normal at 552 and Uric Acid is normal at 6.5. Will check CT Abdomen and pelvis and lab in morning. - Time Spent With Patient Total time spent is greater than 50% in coordination of care (as documented) at patient's floor/unit and/or counseling patient: 25 - 35 minutes
[2017-10-05] MEDS ORDERED: NS 1,000 ML IV SCH (13:45)
[2017-10-05] MEDS ORDERED: LORazepam 1 MG TABLET PO PRN (14:04)
--- NOTE | 2017-10-05 14:09 | Progress Note ---
- Date 10/05/17 Subjective: The patient was seen this afternoon in her room accompanied by her two daughters , her son and her sister and [id number]. The patient was asleep on oxygen by nasal cannula. She did awaken and was much more alert and responsive than yesterday. She did receive morphine at noon and her family states she is more somnolent and confused since that time. They state she was alert and appeared to have normal orientation this morning. However, she was having a severe headache and was given morphine. She was drinking water without difficulties. Her oral meds were held because of concerns for her ability to swallow. Her urine output is poor. She has a [place] catheter in place. She had some left knee pain but that has improved. She denies chest pain. She states she is always short of breath. She continues to have a rash and is scratching at her chest. Objective Vital signs: Temperature 98.7 F 10/05/17 08:00 Pulse Rate 94 10/05/17 08:00 Respiratory Rate 22 10/05/17 08:00 Blood Pressure 153/71 H 10/05/17 08:00 Pulse Oximetry 91 10/05/17 08:00 Height/Weight/BMI: Height 1.63 m Weight 128.5 kg Body Mass Index 46.3 Comments: I&O yesterday 900/275 Overnight 512/125 She appears to have approximately 300 ML's of dark colored urine out from her catheter since this morning. GEN-more alert, confused, no acute distress HEENT-clear and anicteric, oropharynx mildly dry CV-regular rate and rhythm CHEST-decreased breath sounds bilaterally, no wheezes or rhonchi ABD-soft, nontender with positive bowel sounds -Chino in place with dark colored urine EXT-trace edema of the feet NEURO-confused, no focal deficits SKIN-she has erythema of her face chest and some splotchy erythema of her arms and legs-possible allergic reaction to antibiotics Results - Labs CBC & Chem 7: 10/04/17 04:03 10/05/17 04:16 Labs: PTH yesterday was in the low normal range LDH is normal CEA is elevated at 4.73 uric acid is normal at 6.3 Calcium is 11.7 Microbiology Results: Microbiology 10/02/17 11:00 Thoracic Fluid Gram Stain - Final 10/02/17 11:00 Thoracic Fluid Body Fluid Culture - Preliminary Coag negative Staphylococcus-sensitive to all antibiotics tested - ABG Interpretation ABG results: 10/04/17 09:18 ABG pH 7.300 L ABG pCO2 64 H* ABG pO2 75 L ABG HCO3 32 H ABG Total CO2 33.5 H ABG O2 Saturation 93.0 L ABG Base Excess 3.4 H Assessment and Plan (1) Essential (primary) hypertension Current visit: No Status: Acute (2) Chronic kidney disease Current visit: No Status: Acute (3) Hypoxemia requiring supplemental oxygen Current visit: No Status: Acute (4) Pleural effusion on left Current visit: Yes Status: Acute Assessment and Plan: Impression Acute on chronic hypoxic and hypercapnic respiratory failure-better today Severe somnolence-likely secondary to a combination of pain medication, CO2 retention, and hypercalcemia-marketed improvement today Probable breast cancer versus lymphoma with what looks like metastatic spread to the mediastinum, axilla, and liver. Discussed today with Dr. Smith and further testing of tissue is under way Left pleural effusion -status post thoracentesis, cytology is negative Severe functional decline Hypercalcemia-most likely hypercalcemia of malignancy-PTH is low normal. Discussed with Dr. Smith. He is considering giving steroids Chronic kidney disease Fluid overload-weight up 5 kg Pleural fluid positive for coag negative staph-sensitive to all antibiotics tested . Gram stain also revealed bacteria. Possible drug rash CAD HTN HDL Stage III CKD -decreased urine output with increased creatinine today Hypothyroidism Restless leg syndrome Fibromyalgia Osteoarthritis Osteoporosis Urinary incontinence Dementia Depression Hypernatremia (POA) Functional decline - has been on fpc at for care Morbid Obesity with BMI 47.3 Plan BiPAP when necessary Await further workup of biopsy We'll give IV fluids and Bumex to help improve urinary output and creatinine DC vancomycin and cefepime secondary to rash. Start clindamycin for coag- negative staph infection of pleural fluid Discussed at length with family. The patient appears to have improved today regarding level of consciousness. They want to continue with current treatment plan for now. Await biopsy results. We'll decrease medications that cause somnolence. Will ask speech therapy to see the patient today to assess her swallow Greater than 30 minutes of time spent seeing and evaluating the patient in determining care plan. - Physician Narrative Narrative: Date: 10/05/17 Time: 1405 Hospital Course Summary Disclaimer: The visit summary below is not to be considered part of the above Progress Note. Hospital Course: 10/01/17 - admit late evening Admit to inpatient status at [facility] secondary to worsening respiratory status secondary to left pleural effusion. Supplemental O2 to maintain saturations. Nebulized treatments for pulmonary toilet Hold ASA/Plavix due to anticipated surgical procedures. SCD for DVT prevention. DNR as per her requests. Care to return to PCP at time of discharge from [facility]. 10/02/17 US Guided thoracentesis for diagnostic and therapeutic purposes. Will consult with Dr Lockhart for potential Breast/Lymph node Bx. Decrease IVF to 50cc/hr 10/03/17 Pleural fluid showing transudate. Cytology pending. Are seeing growth of Staph species from pleural fluid. Will start Cefepime and Vancomycin for Staph coverage. Discussed with Dr Martinez - will check on cytology as may be diagnostic, otherwise would need Bx or Lymph node or breast. Did discuss with daughter about concern for metastatic breast cancer. Right now do not have definitive Dx. Daughter uncertain if would want treatments (even palliative) due to patient' s dementia and significant decline in recent months. Did discuss about possible hospice care - however discussion was informational only and no decisions were made. Continue with low flow IVF of NS at 50cc/hr as oral drive. Continue pain control. Continue supplement O2 to maintain saturations. Recheck CXR in am to monitor effusion. 10/04/17 10:51 Plan Pleural fluid pathology reports no malignant cells showing transudate. Are seeing growth of Staph species from pleural fluid. Continue on Cefepime and Vancomycin for Staph coverage. She will need a Breast/Lymph Bx in the future Will work on diuresing, Lasix 40 milligrams [address] [place] catheter to monitor accurate output ABG pending Skin appears to have erythema, unsure if this is related to increased temperate up to 100.5 versus reaction to medication. Will follow carefully. Discussed with attending, Dr Saenz 10/05/17 14:18 Plan BiPAP when necessary Await further workup of biopsy We'll give IV fluids and Bumex to help improve urinary output and creatinine DC vancomycin and cefepime secondary to rash. Start clindamycin for coag- negative staph infection of pleural fluid Discussed at length with family. The patient appears to have improved today regarding level of consciousness. They want to continue with current treatment plan for now. Await biopsy results. We'll decrease medications that cause somnolence. Will ask speech therapy to see the patient today to assess her swallow
[2017-10-05] MEDS: CLINDAMYCIN PB 600 MG/50 ML BAG IV SCH ×2 (16:09→23:45)
[2017-10-05] MEDS: QUETIAPINE 100 MG TABLET PO SCH ×2 (16:09→21:16)
--- NOTE | 2017-10-05 16:21 | CT Scan Report ---
Indication: diffuse large cell lymphoma PROCEDURE: CT abdomen pelvis wo con: Encounter: Initial Comparison: CT abdomen and pelvis dated June 09, [address] dated October 01, 2017 Technique: Axial CT images were performed through the abdomen and pelvis without intravenous contrast. Coronal and sagittal two-dimensional reformats. Automated Exposure Control and Iterative Reconstruction dose reducing techniques were utilized. Findings: Left pleural effusion with compressive atelectasis of the left lower lobe. Mild right basilar atelectasis. The unenhanced contours of the liver show areas of subcapsular calcification posteriorly in the right lobe which are chronic dating back to at least 2010. No gross liver masses. The prior area of low-attenuation near the caudate lobe of the liver is not seen on today's exam. Postcholecystectomy changes. Motion artifact. Spleen size is normal at 12.3 cm anteroposterior dimension. Interval enlargement in a left adrenal mass, now measuring 4.7 x 3.7 cm. This had characteristics diagnostic for a benign adenoma on the 2010 study where it measured 3 x 2 cm in size. The size measurements are the same as the more recent CT chest from October 01 although the attenuation value has increased from 44 Hounsfield units to 53. Stable superior pole right renal cyst. Interval growth in a benign lower pole right renal cyst. Prominent 1 cm stone in the right renal pelvis is new from the comparison. There is a mildly enlarged retroperitoneal lymph node anterior to the IVC seen on axial image #51. This is partially obscured by motion artifact but measures 1.1 cm in short axis and is new from the comparison. Scattered arterial atherosclerotic plaque. Dependent subcutaneous edema. No evidence of a bowel obstruction. Bladder is decompressed with a [place] catheter. No free pelvic fluid. No evidence of a bowel obstruction. Bone windows show degenerative change in the spine and hips without lytic or blastic osseous lesion. Mildly enlarged left inguinal node seen on image #98 measuring 1.6 cm in short axis dimension. There is also an enlarged lymph node more laterally just anterior to the rectus femoris muscle on axial image #88 measuring 1.2 cm in short axis. Impression: 1. Single enlarged retroperitoneal node and two enlarged nodes in the left proximal thigh could represent sites of metastatic disease or reactive adenopathy. 2. Evidence of recent hemorrhage into an existing left adrenal adenoma. 3. Nonobstructing right nephrolithiasis. 4. Left pleural effusion. .
[2017-10-05] MEDS: DULOXETINE 60 MG CAPSULE PO SCH (20:51)
[2017-10-06] MEDS: MORPHINE SULFATE 2mg INJECTION IVP PRN ×2 (00:34→04:01)
[2017-10-06] MEDS: CLINDAMYCIN PB 600 MG/50 ML BAG IV SCH ×3 (05:50→22:30)
[2017-10-06] MEDS: PANTOPRAZOLE 40 MG TABLET PO SCH (05:53)
[2017-10-06] MEDS: ALBUTEROL/IPRATROPIUM 2.5mg-0.5mg/3ml NEB AEROSOL SCH ×4 (07:20→19:58)
[2017-10-06] MEDS: BUDESONIDE INH.SOLN 0.5mg/2ml NEB AEROSOL SCH ×2 (07:20→19:58)
[2017-10-06] MEDS: SALINE 0.65% NASAL SPRAY 44 ML BOTTLE EA NOSTRIL SCH ×4 (08:22→20:34)
[2017-10-06] MEDS: ALLOPURINOL 300 MG TABLET PO SCH (08:23)
[2017-10-06] MEDS: SALINE FLUSH 10ml SYRINGE IVF PRN (08:23)
[2017-10-06] MEDS: ISOSORBIDE MONONITRATE ER 30 MG TABLET PO SCH (08:24)
[2017-10-06] MEDS: AMLODIPINE 5 MG TABLET PO SCH ×2 (08:24→20:33)
[2017-10-06] MEDS: PREGABALIN 75 MG CAPSULE PO SCH ×2 (08:24→20:33)
[2017-10-06] MEDS: TRAMADOL 50 MG TABLET PO SCH ×2 (08:26→20:33)
--- NOTE | 2017-10-06 09:16 | Progress Note ---
DATE 10/05/2017 FINDINGS Mrs. Alvarez was not in her bed when I did make afternoon rounds today. I did speak with the hospitalist and she did undergo a needle biopsy of a couple of supraclavicular lymph nodes yesterday that did show evidence for lymphoma. ASSESSMENT 77-year-old female with newly discovered lymphoma. Patient with a component of dementia and multiple additional medical comorbidities. PLAN Will sign off from general surgical standpoint. If any further general surgical care is needed, please contact general surgeon on-call. MERLINE
[2017-10-06] MEDS: LEVOTHYROXINE 200 MCG TABLET PO SCH (10:02)
--- NOTE | 2017-10-06 12:07 | Progress Note ---
Oncology Subjective Lying in the bed not using the BiPAP, feels comfortable. She is on oxygen nasal cannula. Respiratory: Shortness of breath, improved. No cough. Cardiovascular: No chest pain. GI: No nausea or vomiting. 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 Exam Vital signs: Temperature 97.6 F 10/06/17 08:00 Pulse Rate 72 10/06/17 08:00 Respiratory Rate 18 10/06/17 08:00 Blood Pressure 153/76 H 10/06/17 08:00 Pulse Oximetry 94 10/06/17 08:00 - Constitutional no acute distress, well nourished, cooperative - Routine Chest/Breast/Axilla Exam Breast: Present: mass, erythema - Routine Respiratory Exam Present: decreased breath sounds Comments: Diminished air entry on the left side. - Routine Cardiovascular Exam Present: RRR. Absent: murmur - Routine Abdominal Exam Present: soft, normoactive bowel sounds. Absent: organomegaly, mass - Routine Skin Exam Absent: rash - Routine Neurological Exam Present: alert, oriented X3 Oncology Results - Labs CBC & Chem 7: 10/06/17 04:46 10/06/17 04:46 Labs: Short CBC 10/06/17 Range/Units 04:46 WBC 3.5 L D (4.5-11.0) T/MM3 Hgb 11.9 L (12-16) GM/DL Hct 38.5 (36-46) % Plt Count 102 L (130-400) T/MM3 [facility] 10/06/17 04:46 Sodium 143 Potassium 4.7 Chloride 106 Carbon Dioxide 28 BUN 44.0 H Creatinine 2.1 H Glucose 113 H Calcium 11.7 H Assessment and Plan Assessment and Plan: A/P: 1. 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 Dr. Aguilera confirmed the diagnosis of diffuse large B-cell lymphoma. 2. left pleural effusion probably related to the lymphoma. 3. multiple comorbid conditions. 4. Hypercalcemia of malignancy. 5. renal insufficiency I discussed the results of the biopsy and treatment options with the patient daughter, Kimberly. I explained to the patient on her daughter the treatment is typically chemotherapy. Kimberly stated that her mom is not considering chemotherapy. She opted for comfort care. We'll continue IV fluid and keep the patient on dexamethasone 4 mg 3 times a day with monitoring of electrolytes. We discussed the option on withdrawal of hospice care. They would like to discuss discharge plan on hospice care after [place]. Will continue supportive/comfort care for now. - Time Spent With Patient Total time spent is greater than 50% in coordination of care (as documented) at patient's floor/unit and/or counseling patient: 25 - 35 minutes
--- NOTE | 2017-10-06 14:42 | Progress Note ---
- Date 10/06/17 Subjective: The patient is seen in her room today accompanied by her sister and her daughter. The patient is more alert today than yesterday or the day before. She states she feels better than yesterday but does complain of pain "all over". She received 1 dose of morphine around 4 AM and tramadol this morning. She would like to try some more tramadol now. She denies feeling short of breath. She was able to eat some Jell-O. She has drank a little bit of water but not much. She has a [place] catheter in place. Urine output was better yesterday after IV fluids and diuretics. Objective Vital signs: Temperature 97.6 F 10/06/17 08:00 Pulse Rate 75 10/06/17 08:00 Respiratory Rate 22 10/06/17 13:45 Blood Pressure 153/76 H 10/06/17 08:00 Pulse Oximetry 94 10/06/17 13:56 Height/Weight/BMI: Height 1.63 m Weight 129.6 kg Body Mass Index 46.3 Comments: I&O yesterday 912/1275 GEN-alert, less confused today, mild distress from pain HEENT-sclera anicteric, oropharynx is moist NECK-supple CV-regular rate and rhythm CHEST-clear anteriorly ABD-soft, mildly tender to palpation throughout, positive bowel sounds, -[place] in place, urine is not as dark as yesterday EXT-trace edema, SCDs are on NEURO-no focal deficits SKIN-warm and dry, she continues to have a rash on her lower face and chest Results - Labs CBC & Chem 7: 10/06/17 04:46 10/06/17 04:46 Microbiology Results: Microbiology 10/02/17 11:00 Thoracic Fluid Gram Stain - Final 10/02/17 11:00 Thoracic Fluid Body Fluid Culture - Preliminary Coag negative Staphylococcus - Impressions CT abdomen and pelvis out contrast Impression: 1. Single enlarged retroperitoneal node and two enlarged nodes in the left proximal thigh could represent sites of metastatic disease or reactive adenopathy. 2. Evidence of recent hemorrhage into an existing left adrenal adenoma. 3. Nonobstructing right nephrolithiasis. 4. Left pleural effusion. Assessment and Plan (1) Essential (primary) hypertension Current visit: No Status: Acute (2) Chronic kidney disease Current visit: No Status: Acute (3) Hypoxemia requiring supplemental oxygen Current visit: No Status: Acute (4) Pleural effusion on left Current visit: Yes Status: Acute Assessment and Plan: Impression Acute on chronic hypoxic and hypercapnic respiratory failure-better today Severe somnolence-likely secondary to a combination of pain medication, CO2 retention, and hypercalcemia-marketed improvement today Diffuse B-cell lymphoma-newly diagnosed. Dr. Rivas talked with the patient and her family. They have decided against chemotherapy. I want to continue with other current treatment for now. Considering hospice after . Left pleural effusion -status post thoracentesis, cytology is negative-culture positive for coag-negative staph (sensitive to all antibiotics tested) Hypercalcemia-most likely hypercalcemia of malignancy-PTH is low normal. Decadron initiated 10/05/2017 Fluid overload-weight up 5 kg Possible drug rash to ankle Meissen and cefepime. Both were discontinued on and clindamycin was initiated CAD HTN HDL Stage III CKD -decreased urine output improved with fluids Hypothyroidism Restless leg syndrome Fibromyalgia Osteoarthritis Osteoporosis Urinary incontinence Dementia Depression Hypernatremia (POA) Functional decline - [facility] Morbid Obesity with BMI 47.3 Plan Continue BiPAP when necessary Continue cautious IV fluids and once daily diuretic. Monitor closely to prevent fluid overload or intravascular depletion. Pathology returned today showing diffuse large B-cell lymphoma. Dr. Rivas talked with the family and they decided against chemotherapy but wanted to continue with supportive care at this time. They're considering hospice care after . Recheck basic metabolic and CBC tomorrow. Overall, the patient looks better today and she has the last 2 days. She is more alert and conversant. She appears more comfortable. We'll continue pain medication as needed to control pain but try to prevent oversedation. CT scan was reviewed and discussed with family. Discussed today with family, patient's nurse, and Dr. Rivas. DVT Prophylaxis: SCD's Resuscitation Status: Do Not Resuscitate - Physician Narrative Narrative: Date: 10/06/17 Time: 1439 Hospital Course Summary Disclaimer: The visit summary below is not to be considered part of the above Progress Note. Hospital Course: 10/01/17 - admit late evening Admit to inpatient status at [facility] secondary to worsening respiratory status secondary to left pleural effusion. Supplemental O2 to maintain saturations. Nebulized treatments for pulmonary toilet Hold ASA/Plavix due to anticipated surgical procedures. SCD for DVT prevention. DNR as per her requests. Care to return to PCP at time of discharge from [facility]. 10/02/17 US Guided thoracentesis for diagnostic and therapeutic purposes. Will consult with Dr Lockhart for potential Breast/Lymph node Bx. Decrease IVF to 50cc/hr 10/03/17 Pleural fluid showing transudate. Cytology pending. Are seeing growth of Staph species from pleural fluid. Will start Cefepime and Vancomycin for Staph coverage. Discussed with Dr Martinez - will check on cytology as may be diagnostic, otherwise would need Bx or Lymph node or breast. Did discuss with daughter about concern for metastatic breast cancer. Right now do not have definitive Dx. Daughter uncertain if would want treatments (even palliative) due to patient' s dementia and significant decline in recent months. Did discuss about possible hospice care - however discussion was informational only and no decisions were made. Continue with low flow IVF of NS at 50cc/hr as oral drive. Continue pain control. Continue supplement O2 to maintain saturations. Recheck CXR in am to monitor effusion. 10/04/17 10:51 Plan Pleural fluid pathology reports no malignant cells showing transudate. Are seeing growth of Staph species from pleural fluid. Continue on Cefepime and Vancomycin for Staph coverage. She will need a Breast/Lymph Bx in the future Will work on diuresing, Lasix 40 [address] [place] catheter to monitor accurate output ABG pending Skin appears to have erythema, unsure if this is related to increased temperate up to 100.5 versus reaction to medication. Will follow carefully. Discussed with attending, Dr Saenz 10/05/17 14:18 Plan BiPAP when necessary Await further workup of biopsy We'll give IV fluids and Bumex to help improve urinary output and creatinine DC vancomycin and cefepime secondary to rash. Start clindamycin for coag- negative staph infection of pleural fluid Discussed at length with family. The patient appears to have improved today regarding level of consciousness. They want to continue with current treatment plan for now. Await biopsy results. We'll decrease medications that cause somnolence. Will ask speech therapy to see the patient today to assess her swallow 10/06/17 14:49 Plan Continue BiPAP when necessary Continue cautious IV fluids and once daily diuretic. Monitor closely to prevent fluid overload or intravascular depletion. Pathology returned today showing diffuse large B-cell lymphoma. Dr. Rivas talked with the family and they decided against chemotherapy but wanted to continue with supportive care at this time. They're considering hospice care after [place]. Recheck basic metabolic and CBC tomorrow. Overall, the patient looks better today and she has the last 2 days. She is more alert and conversant. She appears more comfortable. We'll continue pain medication as needed to control pain but try to prevent oversedation. Discussed today with family, patient's nurse, and Dr. Rivas.
[2017-10-06] MEDS: TRAMADOL 50 MG TABLET PO PRN (14:53)
[2017-10-06] MEDS: DEXAMETHASONE 20 MG/5 ML INJECTION IVP SCH (18:02)
[2017-10-06] MEDS: NS 1,000 ML IV SCH (18:36)
[2017-10-06] MEDS: DULOXETINE 60 MG CAPSULE PO SCH (20:33)
[2017-10-06] MEDS: QUETIAPINE 100 MG TABLET PO SCH (21:00)
[2017-10-07] MEDS: DEXAMETHASONE 20 MG/5 ML INJECTION IVP SCH ×3 (01:01→16:54)
[2017-10-07] MEDS: NS 1,000 ML IV SCH ×2 (04:36→13:23)
[2017-10-07] MEDS: CLINDAMYCIN PB 600 MG/50 ML BAG IV SCH ×3 (05:53→21:42)
[2017-10-07] MEDS: PANTOPRAZOLE 40 MG TABLET PO SCH (05:53)
[2017-10-07] MEDS: ALBUTEROL/IPRATROPIUM 2.5mg-0.5mg/3ml NEB AEROSOL SCH ×4 (07:10→19:47)
[2017-10-07] MEDS: BUDESONIDE INH.SOLN 0.5mg/2ml NEB AEROSOL SCH ×2 (07:10→19:47)
[2017-10-07] MEDS: PREGABALIN 75 MG CAPSULE PO SCH ×2 (08:36→21:40)
[2017-10-07] MEDS: AMLODIPINE 5 MG TABLET PO SCH ×2 (08:36→21:50)
[2017-10-07] MEDS: ISOSORBIDE MONONITRATE ER 30 MG TABLET PO SCH (08:36)
[2017-10-07] MEDS: TRAMADOL 50 MG TABLET PO SCH ×2 (08:36→21:49)
[2017-10-07] MEDS: LEVOTHYROXINE 200 MCG TABLET PO SCH (08:36)
[2017-10-07] MEDS: ALLOPURINOL 300 MG TABLET PO SCH (08:36)
[2017-10-07] MEDS: SALINE 0.65% NASAL SPRAY 44 ML BOTTLE EA NOSTRIL SCH ×4 (08:37→21:50)
[2017-10-07] MEDS ORDERED: LORazepam 1 MG TABLET PO PRN (11:20)
[2017-10-07] MEDS: LORazepam 0.5 MG TABLET PO PRN (11:36)
[2017-10-07] MEDS: TRAMADOL 50 MG TABLET PO PRN (16:53)
--- NOTE | 2017-10-07 16:56 | Progress Note ---
- Date 10/07/17 Subjective: Patient was seen this afternoon in her room. Currently, no family is present. The patient is alert but having delirium. She complains of some pain in her legs , but not bad. She has some mild nausea. She asks for a pen so she can write something down. She denies feeling short of breath at this time. She has difficulty answering any further questions because of her confusion. She has been manipulating her telemetry pack and holding it up to observe it. Objective Vital signs: Temperature 96.7 F L 10/07/17 15:09 Pulse Rate 124 H 10/07/17 16:35 Respiratory Rate 22 10/07/17 15:25 Blood Pressure 167/83 H 10/07/17 15:29 Pulse Oximetry 94 10/07/17 15:25 Height/Weight/BMI: Height 1.63 m Weight 129.1 kg Body Mass Index 46.3 Comments: I&O yesterday 1725/900 Today 1382/650 GEN-alert, pleasant, confused, mildly agitated HEENT-sclera anicteric, oropharynx is mildly dry CV-irregularly irregular with borderline tachycardic rate. Review of telemetry appears to show intermittent A. fib today. CHEST-clear to auscultation anteriorly ABD-soft, obese, nontender with hypoactive bowel sounds -[place] in place with good urine output EXT-the protective is are on, she has bilateral pitting edema in her legs NEURO-moves all 4 extremities, currently with delirium SKIN-warm and dry, she continues to have a confluent rash versus flushed skin especially on her chest Results - Labs CBC & Chem 7: 10/06/17 04:46 10/06/17 04:46 Microbiology Results: Microbiology 10/02/17 11:00 Thoracic Fluid Gram Stain - Final 10/02/17 11:00 Thoracic Fluid Body Fluid Culture - Final Coag negative Staphylococcus Assessment and Plan (1) Essential (primary) hypertension Current visit: No Status: Acute (2) Chronic kidney disease Current visit: No Status: Acute (3) Hypoxemia requiring supplemental oxygen Current visit: No Status: Acute (4) Pleural effusion on left Current visit: Yes Status: Acute Assessment and Plan: Impression Delirium with agitation A. fib flutter with intermittent RVR -new onset Acute on chronic hypoxic and hypercapnic respiratory failure-stable Severe somnolence-likely secondary to a combination of pain medication, CO2 retention, and hypercalcemia on 10/05/2017-improved Diffuse B-cell lymphoma-newly diagnosed. Dr. Rivas talked with the patient and her family. They have decided against chemotherapy and want to continue with other current treatment for now. Considering hospice after . Left pleural effusion -status post thoracentesis, cytology is negative-culture positive for coag-negative staph (sensitive to all antibiotics tested)- currently on clindamycin Hypercalcemia-most likely hypercalcemia of malignancy-PTH is low normal. Decadron initiated 10/05/2017 Fluid overload-weight up 5 kg Possible drug rash to vancomycin and cefepime. Both were discontinued on 2016 and clindamycin was initiated CAD HTN HDL Stage III CKD -decreased urine output improved with fluids Hypothyroidism Restless leg syndrome Fibromyalgia Osteoarthritis Osteoporosis Urinary incontinence Dementia Depression Hypernatremia (POA) Functional decline - has been on shelter [facility] care Morbid Obesity with BMI 47.3 Plan Continue BiPAP when necessary Continue cautious IV fluids and once daily diuretic. Monitor closely to prevent fluid overload or intravascular depletion. Pathology returned today showing diffuse large B-cell lymphoma. Dr. Rivas talked with the family and they decided against chemotherapy but wanted to continue with supportive care at this time. Recheck basic metabolic and CBC tomorrow. We'll continue pain medication as needed to control pain but try to prevent oversedation. Discussed with the patient's daughter/ANDREW Harris. She is okay with trying some Haldol for her delirium. Will start with a low-dose. We discussed the new onset A. fib with intermittent RVR. At this time we will be conservative. Could give additional beta daria if rate is over 120 frequently. We'll not anticoagulate. Family is planning on hospice after . They do not want to be aggressive with her care at this time. - Physician Narrative Narrative: Date: 10/07/17 Time: 1651 Hospital Course Summary Disclaimer: The visit summary below is not to be considered part of the above Progress Note. Hospital Course: 10/01/17 - admit late evening Admit to inpatient status at [facility] [place] secondary to worsening respiratory status secondary to left pleural effusion. Supplemental O2 to maintain saturations. Nebulized treatments for pulmonary toilet Hold ASA/Plavix due to anticipated surgical procedures. SCD for DVT prevention. DNR as per her requests. Care to return to PCP at time of discharge from [facility]. 10/02/17 US Guided thoracentesis for diagnostic and therapeutic purposes. Will consult with Dr Lockhart for potential Breast/Lymph node Bx. Decrease IVF to 50cc/hr 10/03/17 Pleural fluid showing transudate. Cytology pending. Are seeing growth of Staph species from pleural fluid. Will start Cefepime and Vancomycin for Staph coverage. Discussed with Dr Martinez - will check on cytology as may be diagnostic, otherwise would need Bx or Lymph node or breast. Did discuss with daughter about concern for metastatic breast cancer. Right now do not have definitive Dx. Daughter uncertain if would want treatments (even palliative) due to patient' s dementia and significant decline in recent months. Did discuss about possible hospice care - however discussion was informational only and no decisions were made. Continue with low flow IVF of NS at 50cc/hr as oral drive. Continue pain control. Continue supplement O2 to maintain saturations. Recheck CXR in am to monitor effusion. 10/04/17 10:51 Plan Pleural fluid pathology reports no malignant cells showing transudate. Are seeing growth of Staph species from pleural fluid. Continue on Cefepime and Vancomycin for Staph coverage. She will need a Breast/Lymph Bx in the future Will work on diuresing, Lasix 40 [address]rams [address] [place] catheter to monitor accurate output ABG pending Skin appears to have erythema, unsure if this is related to increased temperate up to 100.5 versus reaction to medication. Will follow carefully. Discussed with attending, Dr Saenz 10/05/17 14:18 Plan BiPAP when necessary Await further workup of biopsy We'll give IV fluids and Bumex to help improve urinary output and creatinine DC vancomycin and cefepime secondary to rash. Start clindamycin for coag- negative staph infection of pleural fluid Discussed at length with family. The patient appears to have improved today regarding level of consciousness. They want to continue with current treatment plan for now. Await biopsy results. We'll decrease medications that cause somnolence. Will ask speech therapy to see the patient today to assess her swallow 10/06/17 14:49 Plan Continue BiPAP when necessary Continue cautious IV fluids and once daily diuretic. Monitor closely to prevent fluid overload or intravascular depletion. Pathology returned today showing diffuse large B-cell lymphoma. Dr. Rivas talked with the family and they decided against chemotherapy but wanted to continue with supportive care at this time. They're considering hospice care after [place]. Recheck basic metabolic and CBC tomorrow. Overall, the patient looks better today and she has the last 2 days. She is more alert and conversant. She appears more comfortable. We'll continue pain medication as needed to control pain but try to prevent oversedation. Discussed today with family, patient's nurse, and Dr. Rivas.
[2017-10-07] MEDS ORDERED: FUROSEMIDE 20 MG/2 ML INJECTION IVP ONE (17:18)
[2017-10-07] MEDS: MORPHINE SULFATE 2mg INJECTION IVP PRN (19:22)
--- NOTE | 2017-10-07 20:26 | Progress Note ---
Oncology Subjective Patient is confused, with delirium. Exam Vital signs: Temperature 96.7 F L 10/07/17 15:09 Pulse Rate 73 10/07/17 17:17 Respiratory Rate 18 10/07/17 19:50 Blood Pressure 167/83 H 10/07/17 15:29 Pulse Oximetry 96 10/07/17 19:50 - Constitutional no acute distress, well nourished, agitated, other Comments: Has delirium confused. - Routine Chest/Breast/Axilla Exam Breast: Present: mass - Routine Respiratory Exam Absent: respiratory distress, wheezes, crackles - Routine Abdominal Exam Present: soft - Routine Neurological Exam Present: alert, altered mental status, moving all extremities Oncology Results - Labs CBC & Chem 7: 10/06/17 04:46 10/06/17 04:46 Assessment and Plan Assessment and Plan: A/P: 1. 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 2. left pleural effusion probably related to the lymphoma, however cytology negative. 3. multiple comorbid conditions. 4. Hypercalcemia of malignancy. -We'll continue dexamethasone and I would add calcitonin which was given a temporary treatment for the hypercalcemia (agitation and delirium could be related to the hypercalcemia. 5. renal insufficiency, stable. Family medical consider hospice after the . - Time Spent With Patient Total time spent is greater than 50% in coordination of care (as documented) at patient's floor/unit and/or counseling patient: less than 15 minutes
[2017-10-07] MEDS: QUETIAPINE 100 MG TABLET PO SCH (21:41)
[2017-10-07] MEDS: DULOXETINE 60 MG CAPSULE PO SCH (21:41)
[2017-10-08] MEDS: DEXAMETHASONE 20 MG/5 ML INJECTION IVP SCH ×3 (00:38→16:52)
[2017-10-08] MEDS: SALINE FLUSH 10ml SYRINGE IVF PRN ×2 (00:39→02:03)
[2017-10-08] MEDS: NS 1,000 ML IV SCH ×3 (01:57→21:05)
[2017-10-08] MEDS: MORPHINE SULFATE 2mg INJECTION IVP PRN (02:02)
[2017-10-08] MEDS: TRAMADOL 50 MG TABLET PO PRN (03:58)
[2017-10-08] MEDS: CLINDAMYCIN PB 600 MG/50 ML BAG IV SCH ×3 (06:22→21:55)
[2017-10-08] MEDS: PANTOPRAZOLE 40 MG TABLET PO SCH (06:22)
[2017-10-08] MEDS: BUDESONIDE INH.SOLN 0.5mg/2ml NEB AEROSOL SCH ×2 (07:47→19:35)
[2017-10-08] MEDS: ALBUTEROL/IPRATROPIUM 2.5mg-0.5mg/3ml NEB AEROSOL SCH ×4 (07:47→19:35)
[2017-10-08] MEDS: ALLOPURINOL 300 MG TABLET PO SCH (09:03)
[2017-10-08] MEDS: AMLODIPINE 5 MG TABLET PO SCH ×2 (09:04→20:39)
[2017-10-08] MEDS: CALCITONIN 400 UNIT/2 ML INJECTION SQ SCH ×2 (09:05→20:39)
[2017-10-08] MEDS: ISOSORBIDE MONONITRATE ER 30 MG TABLET PO SCH (09:06)
[2017-10-08] MEDS: PREGABALIN 75 MG CAPSULE PO SCH ×2 (09:06→20:39)
[2017-10-08] MEDS: LEVOTHYROXINE 200 MCG TABLET PO SCH (09:06)
[2017-10-08] MEDS: SALINE 0.65% NASAL SPRAY 44 ML BOTTLE EA NOSTRIL SCH ×4 (09:07→20:39)
[2017-10-08] MEDS: TRAMADOL 50 MG TABLET PO SCH ×2 (09:12→20:39)
--- NOTE | 2017-10-08 15:18 | Progress Note ---
- Date 10/08/17 Subjective: Patient was seen in her room today accompanied by her daughter and son-in-law. She is a little confused again today but less agitated. Heart rate jumped up to the 130s recently. On telemetry looks like probable atrial flutter. Blood pressure is elevated. The patient denies any pain. She is a little bit short of breath. She was able to eat a few bites at breakfast time. Objective Vital signs: Temperature 96.9 F 10/08/17 07:20 Pulse Rate 130 H 10/08/17 12:31 Respiratory Rate 18 10/08/17 14:59 Blood Pressure 169/105 H 10/08/17 12:31 Pulse Oximetry 92 10/08/17 14:59 Height/Weight/BMI: Height 1.63 m Weight 128.9 kg Body Mass Index 46.3 Comments: GEN-alert, mildly confused, no acute distress CV-tachycardic rate with irregular rhythm. Heart rate consistently around 130 on telemetry, looks like atrial flutter CHEST-clear to auscultation anteriorly ABD-soft, hypoactive bowel sounds, obese, mildly tender -good urine output EXT-trace lower extremity edema NEURO-significant for confusion, generalized weakness SKIN-warm and dry Results - Labs CBC & Chem 7: 10/08/17 08:07 10/08/17 08:07 Labs: Calcium is down to 11.3 today Calcium is mildly elevated at 5.1. Microbiology Results: Microbiology 10/02/17 11:00 Thoracic Fluid Gram Stain - Final 10/02/17 11:00 Thoracic Fluid Body Fluid Culture - Final Coag negative Staphylococcus Assessment and Plan (1) Essential (primary) hypertension Current visit: No Status: Acute (2) Chronic kidney disease Current visit: No Status: Acute (3) Hypoxemia requiring supplemental oxygen Current visit: No Status: Acute (4) Pleural effusion on left Current visit: Yes Status: Acute Assessment and Plan: Impression Delirium with agitation A. fib flutter with intermittent RVR -new onset 10/07/2017 Acute on chronic hypoxic and hypercapnic respiratory failure-stable Severe somnolence-likely secondary to a combination of pain medication, CO2 retention, and hypercalcemia on 10/05/2017-improved Diffuse B-cell lymphoma-newly diagnosed. Dr. Rivas talked with the patient and her family. They have decided against chemotherapy and want to continue with other current treatment for now. Considering hospice after [facility]. Left pleural effusion -status post thoracentesis, cytology is negative-culture positive for coag-negative staph (sensitive to all antibiotics tested)- currently on clindamycin Hypercalcemia-most likely hypercalcemia of malignancy-PTH is low normal. Decadron initiated 10/05/2017 Fluid overload-weight up 5 kg Possible drug rash to vancomycin and cefepime. Both were discontinued on 2016 and clindamycin was initiated CAD HTN HDL Stage III CKD -decreased urine output improved with fluids Hypothyroidism Restless leg syndrome Fibromyalgia Osteoarthritis Osteoporosis Urinary incontinence Dementia Depression Hypernatremia (POA) Functional decline - has been on [facility] at for care Morbid Obesity with BMI 47.3 Plan We'll give Lopressor 25 mg by mouth 1 now for atrial flutter with rapid ventricular response. Continue BiPAP when necessary Continue cautious IV fluids and once daily diuretic. Monitor closely to prevent fluid overload or intravascular depletion. Family is planning to consult hospice tomorrow. Possible transfer back to her alf with hospice in the near future. They do not want to be aggressive with her care at this time. No further plans to order lab. - Physician Narrative Narrative: Date: 10/08/17 Time: 1514 Hospital Course Summary Disclaimer: The visit summary below is not to be considered part of the above Progress Note. Hospital Course: 10/01/17 - admit late evening Admit to inpatient status at [facility] secondary to worsening respiratory status secondary to left pleural effusion. Supplemental O2 to maintain saturations. Nebulized treatments for pulmonary toilet Hold ASA/Plavix due to anticipated surgical procedures. SCD for DVT prevention. DNR as per her requests. Care to return to PCP at time of discharge from [facility]. 10/02/17 US Guided thoracentesis for diagnostic and therapeutic purposes. Will consult with Dr Lockhart for potential Breast/Lymph node Bx. Decrease IVF to 50cc/hr 10/03/17 Pleural fluid showing transudate. Cytology pending. Are seeing growth of Staph species from pleural fluid. Will start Cefepime and Vancomycin for Staph coverage. Discussed with Dr Martinez - will check on cytology as may be diagnostic, otherwise would need Bx or Lymph node or breast. Did discuss with daughter about concern for metastatic breast cancer. Right now do not have definitive Dx. Daughter uncertain if would want treatments (even palliative) due to patient' s dementia and significant decline in recent months. Did discuss about possible hospice care - however discussion was informational only and no decisions were made. Continue with low flow IVF of NS at 50cc/hr as oral drive. Continue pain control. Continue supplement O2 to maintain saturations. Recheck CXR in am to monitor effusion. 10/04/17 10:51 Plan Pleural fluid pathology reports no malignant cells showing transudate. Are seeing growth of Staph species from pleural fluid. Continue on Cefepime and Vancomycin for Staph coverage. She will need a Breast/Lymph Bx in the future Will work on diuresing, Lasix 40 [address] [place] catheter to monitor accurate output ABG pending Skin appears to have erythema, unsure if this is related to increased temperate up to 100.5 versus reaction to medication. Will follow carefully. Discussed with attending, Dr Saenz 10/05/17 14:18 Plan BiPAP when necessary Await further workup of biopsy We'll give IV fluids and Bumex to help improve urinary output and creatinine DC vancomycin and cefepime secondary to rash. Start clindamycin for coag- negative staph infection of pleural fluid Discussed at length with family. The patient appears to have improved today regarding level of consciousness. They want to continue with current treatment plan for now. Await biopsy results. We'll decrease medications that cause somnolence. Will ask speech therapy to see the patient today to assess her swallow 10/06/17 14:49 Plan Continue BiPAP when necessary Continue cautious IV fluids and once daily diuretic. Monitor closely to prevent fluid overload or intravascular depletion. Pathology returned today showing diffuse large B-cell lymphoma. Dr. Rivas talked with the family and they decided against chemotherapy but wanted to continue with supportive care at this time. They're considering hospice care after [facility]. Recheck basic metabolic and CBC tomorrow. Overall, the patient looks better today and she has the last 2 days. She is more alert and conversant. She appears more comfortable. We'll continue pain medication as needed to control pain but try to prevent oversedation. Discussed today with family, patient's nurse, and Dr. Rivas. 10/07/2017 Plan Continue BiPAP when necessary Continue cautious IV fluids and once daily diuretic. Monitor closely to prevent fluid overload or intravascular depletion. Pathology returned today showing diffuse large B-cell lymphoma. Dr. Rivas talked with the family and they decided against chemotherapy but wanted to continue with supportive care at this time. Recheck basic metabolic and CBC tomorrow. We'll continue pain medication as needed to control pain but try to prevent oversedation. Discussed with the patient's daughter/ANDREW Harris. She is okay with trying some Haldol for her delirium. Will start with a low-dose. We discussed the new onset A. fib with intermittent RVR. At this time we will be conservative. Could give additional beta daria if rate is over 120 frequently. We'll not anticoagulate. Family is planning on hospice after [place]. They do not want to be aggressive with her care at this time.
[2017-10-08] MEDS: HYDRALAZINE 20 MG/ML INJECTION IVP PRN (15:37)
[2017-10-08] MEDS: LORazepam 0.5 MG TABLET PO PRN (16:34)
[2017-10-08] MEDS: DEXAMETHASONE 4 MG/ML INJECTION IVP SCH (16:54)
[2017-10-08] MEDS: QUETIAPINE 100 MG TABLET PO SCH (20:39)
[2017-10-08] MEDS: DULOXETINE 60 MG CAPSULE PO SCH (20:39)
[2017-10-09] MEDS: DEXAMETHASONE 4 MG/ML INJECTION IVP SCH ×3 (00:23→17:13)
[2017-10-09] MEDS: HYDRALAZINE 20 MG/ML INJECTION IVP PRN ×2 (00:23→23:54)
[2017-10-09] MEDS: HALOPERIDOL 1 MG TABLET PO PRN ×2 (00:24→23:49)
[2017-10-09] MEDS: HYDROCODONE/APAP 7.5 MG/325 MG TABLET PO PRN ×2 (01:29→21:02)
[2017-10-09] MEDS: CLINDAMYCIN PB 600 MG/50 ML BAG IV SCH ×3 (05:15→21:32)
[2017-10-09] MEDS: NS 1,000 ML IV SCH ×2 (05:29→18:07)
[2017-10-09] MEDS: PANTOPRAZOLE 40 MG TABLET PO SCH (05:30)
[2017-10-09] MEDS: ONDANSETRON 4 MG/2 ML INJECTION IVP PRN ×2 (07:43→21:02)
[2017-10-09] MEDS: BUDESONIDE INH.SOLN 0.5mg/2ml NEB AEROSOL SCH ×2 (08:47→19:58)
[2017-10-09] MEDS: ALBUTEROL/IPRATROPIUM 2.5mg-0.5mg/3ml NEB AEROSOL SCH ×4 (08:48→19:58)
[2017-10-09] MEDS: LEVOTHYROXINE 200 MCG TABLET PO SCH (09:30)
[2017-10-09] MEDS: ALLOPURINOL 300 MG TABLET PO SCH (09:30)
[2017-10-09] MEDS: LORazepam 0.5 MG TABLET PO PRN ×3 (09:30→21:02)
[2017-10-09] MEDS: TRAMADOL 50 MG TABLET PO SCH ×2 (09:30→21:35)
[2017-10-09] MEDS: ISOSORBIDE MONONITRATE ER 30 MG TABLET PO SCH (09:30)
[2017-10-09] MEDS: AMLODIPINE 5 MG TABLET PO SCH ×2 (09:30→21:05)
[2017-10-09] MEDS: SALINE 0.65% NASAL SPRAY 44 ML BOTTLE EA NOSTRIL SCH ×4 (09:31→21:07)
[2017-10-09] MEDS: PREGABALIN 75 MG CAPSULE PO SCH ×2 (09:31→21:04)
[2017-10-09] MEDS: CALCITONIN 400 UNIT/2 ML INJECTION SQ SCH ×2 (09:43→23:06)
--- NOTE | 2017-10-09 13:27 | Progress Note ---
<Dayami Shaver - Last Filed: 10/09/17 13:24> Oncology Subjective Reclining in hospital bed. More alert, responds appropriately to questions. knows she is in the hospital, cannot name [facility]. General: No fever, no night sweats Eyes: No redness, no pain, no diplopia ENT: No mouth sores, no trouble swallowing Cardiac: No chest pain no palpitations Pulmonary: No cough, no shortness of breath, no wheezing Abdomen: No pain, no nausea vomiting, no diarrhea or constipation : No urgency, frequency, dysuria, or hematuria Musculoskeletal: No arthritis, no myalgias Neurological: No headaches, no focal weakness Skin: No rash, no sores Psychiatric: No anxiety, no depression Exam Vital signs: Temperature 97.3 F 10/09/17 07:17 Pulse Rate 91 10/09/17 07:17 Respiratory Rate 22 10/09/17 07:17 Blood Pressure 158/102 H 10/09/17 07:17 Pulse Oximetry 93 10/09/17 08:51 - Constitutional no acute distress, obese - Routine HEENT Exam Head: Present: normocephalic Eye: Present: EOMI Nose: moist mucous membranes - Routine Neck Exam Present: supple. Absent: lymphadenopathy - Routine Respiratory Exam Present: decreased breath sounds. Absent: wheezes, crackles - Routine Cardiovascular Exam Present: RRR. Absent: no murmur - Routine Abdominal Exam Present: soft. Absent: non tender Comments: No organomegaly or mass, difficult to assess secondary to body habitus. - Routine Extremities Exam Present: edema - Routine Neurological Exam Present: alert, vision grossly intact, hearing grossly intact - Routine Psychiatric Exam Present: normal affect, cooperative Oncology Results - Labs CBC & Chem 7: 10/08/17 08:07 10/08/17 08:07 Assessment and Plan Assessment and Plan: A/P: 1. 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 2. left pleural effusion probably related to the lymphoma, however cytology negative. 3. multiple comorbid conditions. 4. Hypercalcemia of malignancy. 5. renal insufficiency, stable. Plan Family at bedside. Plan visit hospice today, "Mom has talked to us about this before and we know it is what she wants. " - Time Spent With Patient Total time spent is greater than 50% in coordination of care (as documented) at patient's floor/unit and/or counseling patient: less than 15 minutes <Iirs Rivas - Last Filed: 10/09/17 15:42> Exam Vital signs: Temperature 97.3 F 10/09/17 07:17 Pulse Rate 91 10/09/17 07:17 Respiratory Rate 22 10/09/17 07:17 Blood Pressure 158/102 H 10/09/17 07:17 Pulse Oximetry 93 10/09/17 08:51 Oncology Results - Labs CBC & Chem 7: 10/08/17 08:07 10/08/17 08:07 Assessment and Plan Assessment and Plan: I interviewed the patient and again discussed the diagnosis and the role of chemotherapy with the patient's daughter Kimberly. The patient on her family decided against chemotherapy. They already scheduled to visit with hospice today. [facility] be [facility] [place] [facility] with [facility]. - Time Spent With Patient Total time spent is greater than 50% in coordination of care (as documented) at patient's floor/unit and/or counseling patient:
--- NOTE | 2017-10-09 15:35 | Progress Note ---
- Date 10/09/17 Subjective: Patient was seen today accompanied by her daughter. She has some pain in her bottom but it is improved after turning. She denies any other pain. She states she otherwise feels okay. She has some confusion today and was talking to herself earlier today. She has a [place] catheter in with good urine output. Family did decide for hospice evaluation. After discussion with the hospice nurse, they have decided to transfer back to the care home tomorrow with hospice. Objective Vital signs: Temperature 97.3 F 10/09/17 07:17 Pulse Rate 91 10/09/17 07:17 Respiratory Rate 22 10/09/17 07:17 Blood Pressure 158/102 H 10/09/17 07:17 Pulse Oximetry 93 10/09/17 08:51 Height/Weight/BMI: Height 1.63 m Weight 128.5 kg Body Mass Index 46.3 Comments: GEN-alert, mildly confused, some hallucinations today. Her oximetry and telemetry are bothering her and she is trying to remove them. CV-tachycardic rate with irregular rhythm, on telemetry it appears she is in a flutter with a heart rate in the 130s. CHEST-mild coarse breath sounds ABD-soft, nontender with positive bowel sounds -Chino in place with good urine output EXT-no edema NEURO-no focal deficits, mild confusion with hallucinations SKIN-warm and dry Results - Labs CBC & Chem 7: 10/08/17 08:07 10/08/17 08:07 Labs: Calcium today is down to 11.3 Microbiology Results: Microbiology 10/02/17 11:00 Thoracic Fluid Gram Stain - Final 10/02/17 11:00 Thoracic Fluid Body Fluid Culture - Final Coag negative Staphylococcus Assessment and Plan (1) Essential (primary) hypertension Current visit: No Status: Acute (2) Chronic kidney disease Current visit: No Status: Acute (3) Hypoxemia requiring supplemental oxygen Current visit: No Status: Acute (4) Pleural effusion on left Current visit: Yes Status: Acute Assessment and Plan: Impression Delirium with agitation A. fib flutter with intermittent RVR -new onset 10/07/2017 Acute on chronic hypoxic and hypercapnic respiratory failure-stable Severe somnolence-likely secondary to a combination of pain medication, CO2 retention, and hypercalcemia on 10/05/2017-improved Diffuse B-cell lymphoma-newly diagnosed. Dr. Rivas talked with the patient and her family. They have decided against chemotherapy and want to continue with other current treatment for now. [facility] was consulted and plans to go to [facility] tomorrow with [facility]. Left pleural effusion -status post thoracentesis, cytology is negative-culture positive for coag-negative staph (sensitive to all antibiotics tested)- currently on clindamycin Hypercalcemia-most likely hypercalcemia of malignancy-PTH is low normal. Decadron initiated 10/05/2017 Fluid overload Possible drug rash to vancomycin and cefepime. Both were discontinued on 2016 and clindamycin was initiated CAD HTN HDL Stage III CKD -decreased urine output improved with fluids Hypothyroidism Restless leg syndrome Fibromyalgia Osteoarthritis Osteoporosis Urinary incontinence Dementia Depression Hypernatremia (POA) Functional decline - has been on [facility] at for care Morbid Obesity with BMI 47.3 Plan We'll give Lopressor 25 mg by mouth 1 now for atrial flutter with rapid ventricular response. This worked well yesterday for her A. fib with RVR Discontinue telemetry and oximetry since they are bothersome to the patient. Continue other current treatments for now. Plans are for transfer to her care home tomorrow with [facility] and initiation of comfort care. Will not order any further lab or radiology at this time. Discussed with the patient's daughter, nurse, and case finishing machine adjuster. - Physician Narrative Narrative: Date: 10/09/17 Time: 1531 Hospital Course Summary Disclaimer: The visit summary below is not to be considered part of the above Progress Note. Hospital Course: 10/01/17 - admit late evening Admit to inpatient status at [facility] secondary to worsening respiratory status secondary to left pleural effusion. Supplemental O2 to maintain saturations. Nebulized treatments for pulmonary toilet Hold ASA/Plavix due to anticipated surgical procedures. SCD for DVT prevention. DNR as per her requests. Care to return to PCP at time of discharge from [facility]. 10/02/17 US Guided thoracentesis for diagnostic and therapeutic purposes. Will consult with Dr Lockhart for potential Breast/Lymph node Bx. Decrease IVF to 50cc/hr 10/03/17 Pleural fluid showing transudate. Cytology pending. Are seeing growth of Staph species from pleural fluid. Will start Cefepime and Vancomycin for Staph coverage. Discussed with Dr Martinez - will check on cytology as may be diagnostic, otherwise would need Bx or Lymph node or breast. Did discuss with daughter about concern for metastatic breast cancer. Right now do not have definitive Dx. Daughter uncertain if would want treatments (even palliative) due to patient' s dementia and significant decline in recent months. Did discuss about possible hospice care - however discussion was informational only and no decisions were made. Continue with low flow IVF of NS at 50cc/hr as oral drive. Continue pain control. Continue supplement O2 to maintain saturations. Recheck CXR in am to monitor effusion. 10/04/17 10:51 Plan Pleural fluid pathology reports no malignant cells showing transudate. Are seeing growth of Staph species from pleural fluid. Continue on Cefepime and Vancomycin for Staph coverage. She will need a Breast/Lymph Bx in the future Will work on diuresing, Lasix 40 [address]rams [address] [place] catheter to monitor accurate output ABG pending Skin appears to have erythema, unsure if this is related to increased temperate up to 100.5 versus reaction to medication. Will follow carefully. Discussed with attending, Dr Saenz 10/05/17 14:18 Plan BiPAP when necessary Await further workup of biopsy We'll give IV fluids and Bumex to help improve urinary output and creatinine DC vancomycin and cefepime secondary to rash. Start clindamycin for coag- negative staph infection of pleural fluid Discussed at length with family. The patient appears to have improved today regarding level of consciousness. They want to continue with current treatment plan for now. Await biopsy results. We'll decrease medications that cause somnolence. Will ask speech therapy to see the patient today to assess her swallow 10/06/17 14:49 Plan Continue BiPAP when necessary Continue cautious IV fluids and once daily diuretic. Monitor closely to prevent fluid overload or intravascular depletion. Pathology returned today showing diffuse large B-cell lymphoma. Dr. Rivas talked with the family and they decided against chemotherapy but wanted to continue with supportive care at this time. They're considering hospice care after [place]. Recheck basic metabolic and CBC tomorrow. Overall, the patient looks better today and she has the last 2 days. She is more alert and conversant. She appears more comfortable. We'll continue pain medication as needed to control pain but try to prevent oversedation. Discussed today with family, patient's nurse, and Dr. Rivas. 10/07/2017 Plan Continue BiPAP when necessary Continue cautious IV fluids and once daily diuretic. Monitor closely to prevent fluid overload or intravascular depletion. Pathology returned today showing diffuse large B-cell lymphoma. Dr. Rivas talked with the family and they decided against chemotherapy but wanted to continue with supportive care at this time. Recheck basic metabolic and CBC tomorrow. We'll continue pain medication as needed to control pain but try to prevent oversedation. Discussed with the patient's daughter/ANDREW Harris. She is okay with trying some Haldol for her delirium. Will start with a low-dose. We discussed the new onset A. fib with intermittent RVR. At this time we will be conservative. Could give additional beta daria if rate is over 120 frequently. We'll not anticoagulate. Family is planning on hospice after [place]. They do not want to be aggressive with her care at this time. 10/08/2017 Plan We'll give Lopressor 25 mg by mouth 1 now for atrial flutter with rapid ventricular response. Continue BiPAP when necessary Continue cautious IV fluids and once daily diuretic. Monitor closely to prevent fluid overload or intravascular depletion. Family is planning to consult hospice tomorrow. Possible transfer back to her care home with hospice in the near future. They do not want to be aggressive with her care at this time. No further plans to order lab. 10/09/17 15:39 Plan We'll give Lopressor 25 mg by mouth 1 now for atrial flutter with rapid ventricular response. This worked well yesterday for her A. fib with RVR Discontinue telemetry and oximetry since they are bothersome to the patient. Continue other current treatments for now. Plans are for transfer to her care home tomorrow with [facility] and initiation of comfort care. Will not order any further lab or radiology at this time. Discussed with the patient's daughter, nurse, and case finishing machine adjuster.
[2017-10-09] MEDS: QUETIAPINE 100 MG TABLET PO SCH (21:03)
[2017-10-09] MEDS: DULOXETINE 60 MG CAPSULE PO SCH (21:05)
[2017-10-10] MEDS: DEXAMETHASONE 4 MG/ML INJECTION IVP SCH ×2 (01:44→09:00)
[2017-10-10] MEDS: SALINE FLUSH 10ml SYRINGE IVF PRN ×3 (01:45→06:29)
[2017-10-10] MEDS: MORPHINE SULFATE 2mg INJECTION IVP PRN ×2 (03:36→06:29)
[2017-10-10 04:08] VITALS: TEMP 96.5
[2017-10-10] MEDS: NS 1,000 ML IV SCH (04:47)
[2017-10-10] MEDS: CLINDAMYCIN PB 600 MG/50 ML BAG IV SCH (06:30)
[2017-10-10] MEDS: PANTOPRAZOLE 40 MG TABLET PO SCH (06:37)
[2017-10-10] MEDS: BUDESONIDE INH.SOLN 0.5mg/2ml NEB AEROSOL SCH (08:35)
[2017-10-10] MEDS: ALBUTEROL/IPRATROPIUM 2.5mg-0.5mg/3ml NEB AEROSOL SCH (08:35)
[2017-10-10 08:50] VITALS: RESP 16
[2017-10-10] MEDS: ALLOPURINOL 300 MG TABLET PO SCH (08:59)
[2017-10-10] MEDS: SALINE 0.65% NASAL SPRAY 44 ML BOTTLE EA NOSTRIL SCH (08:59)
[2017-10-10] MEDS: TRAMADOL 50 MG TABLET PO SCH (08:59)
[2017-10-10] MEDS: AMLODIPINE 5 MG TABLET PO SCH (08:59)
[2017-10-10] MEDS: PREGABALIN 75 MG CAPSULE PO SCH (08:59)
--- NOTE | 2017-10-10 08:59 | Discharge Summary ---
Discharge Information Date of admission: 10/01/17 22:43 Anticipated date of discharge: 10/10/17 Attending Physician: Tammy Saenz MD Primary care physician: Thalia Nur MD Consults: 10/02/17 10:38 [Physician Consult] [CONS] Routine Consulting Provider: Kam Martinez Reason For Exam: Likely Met breast Ca - Bx Ordering Provider has Notified Qm Nurse: Yes 10/02/17 13:00 Doctor [Physician Consult] [CONS] Routine Consulting Provider: Loc Hernandez Reason For Exam: CONTINUED CARE Ordering Provider has Notified Qm Nurse: Yes 10/03/17 08:27 [facility] Consult [CONS] Routine 10/04/17 14:04 Physician Consult [CONS] Routine Consulting Provider: Jordy Smith Reason For Exam: probable breast cancer Ordering Provider has Notified Qm Nurse: Yes - Discharge Diagnosis (1) Essential (primary) hypertension Status: Chronic (2) Chronic kidney disease Status: Chronic (3) Hypoxemia requiring supplemental oxygen Status: Acute (4) Pleural effusion on left Status: Acute Delirium with agitation. A. fib flutter with intermittent RVR -new onset 10/07/2017 Acute on chronic hypoxic and hypercapnic respiratory failure-stable Severe somnolence-likely secondary to a combination of pain medication, CO2 retention, and hypercalcemia on 10/05/2017-improved Diffuse B-cell lymphoma-newly diagnosed. Dr. Rivas talked with the patient and her family. They have decided against chemotherapy and want to continue with other current treatment for now. [facility] and plans to go to [facility] tomorrow [facility]. Left pleural effusion -status post thoracentesis, cytology is negative-culture positive for coag-negative staph (sensitive to all antibiotics tested)- currently on clindamycin Hypercalcemia-most likely hypercalcemia of malignancy-PTH is low normal. Decadron initiated 10/05/2017 Fluid overload Possible drug rash to vancomycin and cefepime. Both were discontinued on 2016 and clindamycin was initiated CAD HTN HDL Stage III CKD -decreased urine output improved with fluids Hypothyroidism Restless leg syndrome Fibromyalgia Osteoarthritis Osteoporosis Urinary incontinence Dementia Depression Hypernatremia (POA) Functional decline - [facility] Morbid Obesity with BMI 47.3 - Procedures Procedures: Date of Exam: 10/02/17 Type of Exam(s): US thoracentesis Reason for Exam(s): L pleural effusion Procedure:US thoracentesis THORACENTESIS: After discussing the details of the procedure, including the risks, the patient wished to proceed. Informed consent was obtained. A preprocedural timeout was performed to confirm the correct patient and procedure. Using aseptic technique, local lidocaine anesthetic, and ultrasound guidance throughout, a left-sided thoracentesis was performed using a posterolateral approach. 1200 mL of dark, straw-colored fluid was removed from the left hemithorax and sent to lab for the requested studies. The patient tolerated this procedure well. Following this, the patient was transferred back to her room on the medical floor in stable condition. Impression: Successful ultrasound-guided left-sided diagnostic and therapeutic thoracentesis with 1200 mL of fluid removed and sent to lab. Juan José Gatica RPA/NICOLA performed this under my personal supervision. - Laboratory Labs: 10/08/17 08:07 10/08/17 08:07 - Microbiology Microbiology 10/02/17 11:00 Thoracic Fluid Gram Stain - Final 10/02/17 11:00 Thoracic Fluid Body Fluid Culture - Final Coag negative Staphylococcus - Radiology Radiology: Date of Exam: 10/01/17 Type of Exam(s): CT chest wo con Findings: Large left pleural effusion with compressive atelectasis of most of the left lung. No significant right pleural effusion. Mild right basilar atelectasis. No pneumothorax. There is new bulky left axillary and mediastinal adenopathy. There is a mass in the left posterior lateral breast measuring 2.9 x 5.1 cm in size on axial image #19. There is left breast skin thickening and tissue induration also present. Enlarged left axillary lymph nodes measuring up to 2.1 cm in short axis dimension. Enlarged bilateral paratracheal, prevascular and left hilar lymph nodes. Prevascular node on image #22 measuring 2.2 cm in short axis. Heart size is normal. There may be left supraclavicular adenopathy present as well, incompletely evaluated. The upper abdomen shows a benign left adrenal adenoma, stable since 2011 with right renal cyst and right renal stones. There is a low-attenuation lesion in the caudate lobe of the liver on image #59 measuring 5 cm in diameter, incompletely evaluated on this noncontrast study. Bone windows show degenerative change and scoliosis in the spine. 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 Probable hepatic metastatic disease with a large likely malignant pleural effusion. Diagnostic and therapeutic thoracentesis may be helpful. Oncology consultation is recommended. Date of Exam: 10/01/17 Type of Exam(s): XR chest 2V Reason for Exam(s): dyspnea FINDINGS: Increasing large left pleural effusion with compressive atelectasis of the left lung. Right lung is grossly clear. No pneumothorax. Cardiac silhouette is mildly enlarged but unchanged. Left heart border is obscured. There is increasing prominence of the hilar contours consistent with mediastinal adenopathy seen on CT. Pulmonary vascularity is grossly normal. Impression: Worsening large left pleural effusion, possibly a malignant effusion based on the CT. Date of Exam: 10/02/17 Type of Exam(s): US thoracentesis Reason for Exam(s): L pleural effusion Procedure:US thoracentesis THORACENTESIS: After discussing the details of the procedure, including the risks, the patient wished to proceed. Informed consent was obtained. A preprocedural timeout was performed to confirm the correct patient and procedure. Using aseptic technique, local lidocaine anesthetic, and ultrasound guidance throughout, a left-sided thoracentesis was performed using a posterolateral approach. 1200 mL of dark, straw-colored fluid was removed from the left hemithorax and sent to lab for the requested studies. The patient tolerated this procedure well. Following this, the patient was transferred back to her room on the medical floor in stable condition. Impression: Successful ultrasound-guided left-sided diagnostic and therapeutic thoracentesis with 1200 mL of fluid removed and sent to lab. Juan José Gatica RPA/NICOLA performed this under my personal supervision. Date of Exam: 10/03/17 Type of Exam(s): XR chest 1V Findings: Decrease in left pleural effusion following thoracentesis. No visible pneumothorax. There is persistent airspace consolidation throughout the left lung with a basilar predominance. Right lung is stable and grossly clear. Heart size is stable. Mediastinal contours are unchanged. Impression: Decreased left effusion following thoracentesis. ------- Date of Exam: 10/04/17 Type of Exam(s): US breast LT limited CLINICAL: [id number] Lump/Mass, unspecified; Left breast. Color flow, real-time, and Doppler ultrasound of the left breast were performed. Andrews scale images of the real-time examination were reviewed. There is a 3.6 cm x 1.5 cm x 3.9 cm lobulated enlarged node in the left axillary tail. This lobulated enlarged node is hypoechoic with no fatty hilum. This correlates as palpated and correlates with the abnormality on recent chest CT. IMPRESSION: HIGHLY SUGGESTIVE OF MALIGNANCY - FOLLOW-UP RECOMMENDED The 3.6 cm x 1.5 cm x 3.9 cm lobulated enlarged node is consistent with a metastatic lymph node and is highly suggestive of malignancy. An ultrasound guided biopsy is recommended. The patient has been or will be contacted. --------- Date of Exam: 10/04/17 Procedure:US biopsy soft tissue neck SUPRACLAVICULAR LYMPH NODE BIOPSY WITH ULTRASOUND GUIDANCE: After discussing the details of the procedure, including risks, the patient and her daughter wished to proceed. Informed consent was obtained from the patient's DURABLE POWER OF DRIVING INSTRUCTOR. Using aseptic technique, local lidocaine anesthetic, and ultrasound guidance throughout, four passes using an 18-gauge x 2.3 cm throw core Biopince biopsy needle were performed to obtain multiple tissue samples of two enlarged left supraclavicular lymph nodes. Both lymph nodes were biopsied simultaneously. The tissue samples were placed in formalin and sent to lab for the requested studies. The patient tolerated this procedure well. The patient remained in her room in stable condition. Impression: Technically successful simultaneous core biopsy of two enlarged left supraclavicular lymph nodes. Juan José Gatica RPA/NICOLA performed this under my personal supervision. Date of Exam: 10/04/17 Type of Exam(s): XR chest 1V Reason for Exam(s): F/U Effusion Findings: Continued hazy opacity throughout the left lung with a small left pleural effusion. No pneumothorax. Right lung is stable and grossly clear. Cardiac silhouette is stable as are the mediastinal contours. Impression: Stable chest with small left effusion and left sided infiltrates. Date of Exam: 10/05/17 Type of Exam(s): CT abdomen pelvis wo con Reason for Exam(s): diffuse large cell lymphoma Findings: Left pleural effusion with compressive atelectasis of the left lower lobe. Mild right basilar atelectasis. The unenhanced contours of the liver show areas of subcapsular calcification posteriorly in the right lobe which are chronic dating back to at least 2010. No gross liver masses. The prior area of low-attenuation near the caudate lobe of the liver is not seen on today's exam. Postcholecystectomy changes. Motion artifact. Spleen size is normal at 12.3 cm anteroposterior dimension. Interval enlargement in a left adrenal mass, now measuring 4.7 x 3.7 cm. This had characteristics diagnostic for a benign adenoma on the 2010 study where it measured 3 x 2 cm in size. The size measurements are the same as the more recent CT chest from October 01 although the attenuation value has increased from 44 Hounsfield units to 53. Stable superior pole right renal cyst. Interval growth in a benign lower pole right renal cyst. Prominent 1 cm stone in the right renal pelvis is new from the comparison. There is a mildly enlarged retroperitoneal lymph node anterior to the IVC seen on axial image #51. This is partially obscured by motion artifact but measures 1.1 cm in short axis and is new from the comparison. Scattered arterial atherosclerotic plaque. Dependent subcutaneous edema. No evidence of a bowel obstruction. Bladder is decompressed with a [place] catheter. No free pelvic fluid. No evidence of a bowel obstruction. Bone windows show degenerative change in the spine and hips without lytic or blastic osseous lesion. Mildly enlarged left inguinal node seen on image #98 measuring 1.6 cm in short axis dimension. There is also an enlarged lymph node more laterally just anterior to the rectus femoris muscle on axial image #88 measuring 1.2 cm in short axis. Impression: 1. Single enlarged retroperitoneal node and two enlarged nodes in the left proximal thigh could represent sites of metastatic disease or reactive adenopathy. 2. Evidence of recent hemorrhage into an existing left adrenal adenoma. 3. Nonobstructing right nephrolithiasis. 4. Left pleural effusion. - Pathology 10/02/17: Final NonGyn Cytology Report - Diagnosis - No malignant cells seen. 10/04/17 Lymph Node, Left supraclavicular, needle biopsy - Diagnosis - Diffuse large B-cell lymphoma, germinal center phenotype History of Present Illness HPI: The pt has moderate to severe dementia and was not able to answer most of my questions. It was reported that the pt was living at [facility]/ [facility] and c/o SOB & dsypnea today. The staff brought her eto the ER for evaluation. She currently denies any productive cough, fevers, chills, but does c/o SOB when using her walker ambulating just short distances. The symptoms have bee gradually getting worse since being discharged in May 2017 when she was admitted for dyspnea thought to be due to pneumonia. Objective Vital signs: Temperature 96.5 F L 10/10/17 08:20 Pulse Rate 76 10/10/17 08:20 Respiratory Rate 16 10/10/17 08:36 Blood Pressure 172/86 H 10/10/17 08:20 Pulse Oximetry 95 10/10/17 08:36 Height/Weight/BMI: Height 5 ft 4 in Weight 282 lb 10.122 oz Body Mass Index 46.3 Comments: Resting in bed, mild confusion. - Constitutional Present: no acute distress, well nourished, well developed, cooperative - Routine HEENT Exam Head: Present: normocephalic, atraumatic Eye: Present: PERRL. Absent: conjunctival icterus ENT: Present: mucous membranes dry - Routine Respiratory Exam Present: wheezes Comments: diminished bilaterally; breathing easily on nasal canula oxygen. - Routine Cardiovascular Exam Present: RRR, S1, S2 - Routine Abdominal Exam Present: soft, normoactive bowel sounds. Absent: non tender - Routine Exam Comments: [place] present and actively draining yellow urine with good urine output. - Routine Extremities Exam Present: edema (2-3+ bilateral lower extremities.) - Routine Skin Exam Present: dry, warm. Absent: jaundice Comments: afebrile - Routine Neurological Exam Present: alert, moving all extremities, hearing grossly intact. Absent: facial asymmetry - Routine Psychiatric Exam Present: cooperative Hospital Course This is a general summary of the patient's hospital course. For more details refer to the complete medical record. Hospital course: 10/01/17 - admit late evening Admit to inpatient status at [facility] secondary to worsening respiratory status secondary to left pleural effusion. Supplemental O2 to maintain saturations. Nebulized treatments for pulmonary toilet Hold ASA/Plavix due to anticipated surgical procedures. SCD for DVT prevention. DNR as per her requests. Care to return to PCP at time of discharge from [facility]. 10/02/17 US Guided thoracentesis for diagnostic and therapeutic purposes. Will consult with Dr Lockhart for potential Breast/Lymph node Bx. Decrease IVF to 50cc/hr 10/03/17 Pleural fluid showing transudate. Cytology pending. Are seeing growth of Staph species from pleural fluid. Will start Cefepime and Vancomycin for Staph coverage. Discussed with Dr Martinez - will check on cytology as may be diagnostic, otherwise would need Bx or Lymph node or breast. Did discuss with daughter about concern for metastatic breast cancer. Right now do not have definitive Dx. Daughter uncertain if would want treatments (even palliative) due to patient' s dementia and significant decline in recent months. Did discuss about possible hospice care - however discussion was informational only and no decisions were made. Continue with low flow IVF of NS at 50cc/hr as oral drive. Continue pain control. Continue supplement O2 to maintain saturations. Recheck CXR in am to monitor effusion. 10/04/17 10:51 Plan Pleural fluid pathology reports no malignant cells showing transudate. Are seeing growth of Staph species from pleural fluid. Continue on Cefepime and Vancomycin for Staph coverage. She will need a Breast/Lymph Bx in the future Will work on diuresing, Lasix 40 milligrams [address] [place] catheter to monitor accurate output ABG pending Skin appears to have erythema, unsure if this is related to increased temperate up to 100.5 versus reaction to medication. Will follow carefully. Discussed with attending, Dr Saenz 10/05/17 14:18 Plan BiPAP when necessary Await further workup of biopsy We'll give IV fluids and Bumex to help improve urinary output and creatinine DC vancomycin and cefepime secondary to rash. Start clindamycin for coag- negative staph infection of pleural fluid Discussed at length with family. The patient appears to have improved today regarding level of consciousness. They want to continue with current treatment plan for now. Await biopsy results. We'll decrease medications that cause somnolence. Will ask speech therapy to see the patient today to assess her swallow 10/06/17 14:49 Plan Continue BiPAP when necessary Continue cautious IV fluids and once daily diuretic. Monitor closely to prevent fluid overload or intravascular depletion. Pathology returned today showing diffuse large B-cell lymphoma. Dr. Rivas talked with the family and they decided against chemotherapy but wanted to continue with supportive care at this time. They're considering hospice care after [place]. Recheck basic metabolic and CBC tomorrow. Overall, the patient looks better today and she has the last 2 days. She is more alert and conversant. She appears more comfortable. We'll continue pain medication as needed to control pain but try to prevent oversedation. Discussed today with family, patient's nurse, and Dr. Rivas. 10/07/2017 Plan Continue BiPAP when necessary Continue cautious IV fluids and once daily diuretic. Monitor closely to prevent fluid overload or intravascular depletion. Pathology returned today showing diffuse large B-cell lymphoma. Dr. Rivas talked with the family and they decided against chemotherapy but wanted to continue with supportive care at this time. Recheck basic metabolic and CBC tomorrow. We'll continue pain medication as needed to control pain but try to prevent oversedation. Discussed with the patient's daughter/ANDREW Harris. She is okay with trying some Haldol for her delirium. Will start with a low-dose. We discussed the new onset A. fib with intermittent RVR. At this time we will be conservative. Could give additional beta daria if rate is over 120 frequently. We'll not anticoagulate. Family is planning on hospice after . They do not want to be aggressive with her care at this time. 10/08/2017 Plan We'll give Lopressor 25 mg by mouth 1 now for atrial flutter with rapid ventricular response. Continue BiPAP when necessary Continue cautious IV fluids and once daily diuretic. Monitor closely to prevent fluid overload or intravascular depletion. Family is planning to consult hospice tomorrow. Possible transfer back to her care home with hospice in the near future. They do not want to be aggressive with her care at this time. No further plans to order lab. 10/09/17 15:39 Plan We'll give Lopressor 25 mg by mouth 1 now for atrial flutter with rapid ventricular response. This worked well yesterday for her A. fib with RVR Discontinue telemetry and oximetry since they are bothersome to the patient. Continue other current treatments for now. Plans are for transfer to her care home tomorrow [facility] and initiation of comfort care. Will not order any further lab or radiology at this time. Discussed with the patient's daughter, nurse, and director of casework. Plan 10/10/17 Discharge back to [place] [facility] and initiation of comfort care. Discussed with the patient's daughter, nurse, and director of casework. 10/10/2017-I reviewed this chart, the patient history, and the TECHNICAL SUPPORT DIRECTOR's/PA's documented findings as above. We discussed and formulated the assessment and plan as above with the additions below.-Dr. Saenz Patient was seen this morning in her room. Family is currently not present. The patient has encephalopathy. She has some mild nausea. On exam she is drowsy but arousable. She initially asked for her daughter and then says " the president of [facility] might as well, but I don't think he can help." Chest is clear to auscultation. Cardiovascular reveals an irregularly irregular. Abdomen is soft, obese and nontender. Extremities feel trace edema. Ch[place] catheter is in place. Impression and plan The patient was recently diagnosed with lymphoma and due to the patients clinical status, family has decided against chemotherapy, which is a reasonable decision. Family did decide for comfort care with [facility] at [facility]. Will transfer to [facility] today by ambulance. I do not think she will be able to be up in a wheelchair for transport. Time spent with patient: greater than 35 minutes DVT Prophylaxis: SCD's Discharge Plan - Discharge Disposition Discharge Date: 10/10/17 Disposition: 03 To [facility] Not [facility] (SNF) *Condition: Stable Reason For Visit (Visit label in EMR): Pleural effusion - Discharge Medications *Discharge Medications: New LORazepam [Ativan] 0.5 mg PO TID PRN tab PRN Reason: Anxiety Continue Isosorbide Mononitrate ER [Imdur] 30 mg PO QAM Albuterol/Ipratropium [Duoneb] 3 ml AEROSOL RTQID each Budesonide Inhalation [Pulmicort Inhalation] 0.5 mg AEROSOL RTBID vial Calmoseptine [Risamine Oint] 1 applicatio TP DAILY tube Metoprolol Succinate (XL) [Toprol Xl] 100 mg PO DAILY #30 tab Tramadol [Ultram] 50 mg PO Q6HR PRN #30 tab PRN Reason: Pain Tramadol HCl [Ultram] 50 mg PO BID #60 tab Pregabalin Cap [Lyrica] 75 mg PO BID Amlodipine [Norvasc] 5 mg PO BID Levothyroxine Sodium 200 mcg PO DAILY Allopurinol [Zyloprim] 300 mg PO DAILY Duloxetine [Cymbalta] 60 mg PO HS Sodium Chloride [Deep Sea] 1 spray EA NOSTRIL QID Nitroglycerin [Nitrostat] 0.4 mg SL Q5MIN3 PRN PRN Reason: Chest Pain Quetiapine [SEROquel] 200 mg PO HS Pantoprazole Sodium [Protonix] 40 mg PO ACB Nystatin Powder [Mycostatin] 1 applicatio TP TID bottle Discontinued Cholecalciferol (Vitamin D3) [Vitamin D3] 5,000 cap PO WEEKLY Acetaminophen [Acetaminophen Extra Strength] 1,000 mg PO Q6HR PRN PRN Reason: Pain Donepezil [Aricept] 10 mg PO HS tab LORazepam [Lorazepam] 1 mg PO HS PRN #30 tab PRN Reason: anxiety Aspirin [Low Dose Aspirin EC] 81 mg PO DAILY Multivitamin [One Daily] 1 tab PO DAILY Cetirizine HCl 10 mg PO DAILY PRN PRN Reason: Allergy Symptoms Clopidogrel [Plavix] 75 mg PO DAILY #30 tab Guaifenesin LA [Mucinex LA] 600 mg PO BID #20 tab Potassium Chloride [Micro-K] 30 meq PO WB Atorvastatin Calcium [Atorvastatin Calcium] 20 mg PO HS No Action PEG 3350 17gm PACKET [Miralax] 17 gm PO DAILY PRN packet PRN Reason: Constipation - Discharge Packet/Instructions *Diet: Regular with mechanical soft foods *Activity: as tolerated *Pain Management/Treatment: Tylenol 325-650mg PO Q5H PRN. Tylenol 3285mg DE Q5H PRN. [place] 7.5/325 - 1 tab PO Q6H PRN. Ultram 50mg PO Q6H PRN. *Wound Care: Foam dressing to left upper posterior buttock - change Q3 days or as needed. *Expected Signs/Symptoms: progressive deterioration, unfortunately. *Notify Physician if: any additional questions or concers, fever >101, increased difficulty breathing. *During Business Hours Contact: Dr. Nur's office at [phone]. *After Business Hours Contact: interventional sale consultant physician for Dr. Nur or the emergency department at [facility] at [phone]. *Pending Lab/Results: No Pending Lab - Referrals/Follow Up *Referrals/Follow Up: Thalia Nur MD [Family Provider] - Jordy Smith MD [Physician] - - Patient Handouts Patient Handouts: Pleural Effusion (GEN) Physician Narrative - Narrative Attestation Narrative: Date: 10/10/17 Time: 850
[2017-10-10] MEDS: ISOSORBIDE MONONITRATE ER 30 MG TABLET PO SCH (09:00)
[2017-10-10] MEDS: CALCITONIN 400 UNIT/2 ML INJECTION SQ SCH (09:00)
[2017-10-10] MEDS: LEVOTHYROXINE 200 MCG TABLET PO SCH (09:00)
--- NOTE | 2017-10-10 09:46 | Extended Care Facility Orders ---
Admission Orders Admit to:: [facility], [facility]osp[facility] Allergies/Adverse Reactions: Allergies azithromycin Allergy (Intermediate, Verified 10/01/17 20:29) Rash Iodine and Iodide Containing Produc Allergy (Unknown, Verified 10/01/17 20:29) ITCHING Admitting Diagnosis: Pleural effusion Admitting Physician: Tammy Saenz MD Attending Physician: Tammy Saenz MD Code Status: Do Not Resuscitate Anticiapted Length of Stay: 30 days or less Rehab Potential: poor Rehab Prognosis: poor Diet: 10/02/17 Lunch Regular Diet [DIET] Diet Modifications: Food Consistency: [facility] May use Facility Protocol or Standing Orders: Yes May have flu vaccine: Yes Detention Certification: I certify that SNF services are required to be given on an Inpatient basis because of the patients need for nursing home care on a continuing basis for the condition(s) for which he/she received inpatient hospital services prior to his/her transfer to the SNF. SNF inpatient care is necessary for the following reasons Indication for Detention: Not Applicable - Additional Information In Event of Arrest: Do Not Start CPR Resident is Aware of Diagnosis: No (delirium) Referrals: Thalia Nur MD [Family Provider] - Jordy Smith MD [Physician] -
[2017-10-10 09:49] VITALS: BP 125/91; PULSE 80; O2SAT 94
[2017-10-10] MEDS: ONDANSETRON 4 MG/2 ML INJECTION IVP PRN (09:53)
== END 2017-10-10 10:40 | disposition hospice, home (50) | DRG 823 ==
LOC: ED 19:58 → MED 22:43 → SUATTDRO 22:43 → MED 23:10
PROVIDERS: ADMIT Internal Medicine; ATTEND Internal Medicine